=== PATIENT | female | born 1960 | race Caucasian/White ===

== ENCOUNTER 2017-07-22 09:26 | Emergency (ER) | payer MEDICAID, OTHER | END 2017-07-22 09:30 | disposition left against medical advice (07) | LOC: ER 09:26 | DX: R10.9 Unspecified abdominal pain (principal); Z53.21 Procedure and treatment not carried out due to patient leaving prior to being seen by health care provider ==

== ENCOUNTER 2017-09-11 12:33 | Inpatient (IN) | payer MEDICAID ==
[~2017-09-11] VITALS: Ht 160 cm; Wt 85.2 kg
[2017-09-11 13:57] LABS: Basophils # (auto) 0 uL; Lymphocytes # (auto) 1.7 uL; Monocytes # (auto) 0.5 uL; Neutrophils % (auto) 50.6 % (37.0-80.0)
[2017-09-11 13:58] LABS: Basophils % (auto) 0.5 % (0.0-2.0); Eosinophils # (auto) 0.1 uL; Eosinophils % (auto) 1.2 % (0.0-7.0); Hematocrit 35.2 % (36.0-46.0); Hemoglobin 11.1 g/dL (12.2-16.2); Lymphocytes % (auto) 37.4 % (10.0-50.0); Mean Corpuscular Hemoglobin 24.4 pg (28.0-32.0); Mean Corpuscular Hgb Conc. 31.5 g/dL (32.0-36.0); Mean Corpuscular Volume 77.7 fL (80.0-100.0); Monocytes % (auto) 10.3 % (0.0-12.0); Neutrophils # (auto) 2.3 uL; Platelet Count (auto) 287 10^3/uL (140-450); Red Blood Cells 4.54 10^6/uL (4.0-5.20); Red Cell Distribution Width 18.8 % (11.8-14.3); White Blood Cell 4.5 10^3/uL (4.4-10.8)
[2017-09-11 14:31] LABS: Albumin 3.5 g/dL (3.4-5.0); BUN/Creatinine Ratio 18.4; Bilirubin, Total 0.5 mg/dL (0.2-1.0); Calcium 8.7 mg/dL (8.5-10.1); Total Protein 7.7 g/dL (6.4-8.2)
[2017-09-11 14:49] LABS: Urine Bacteria FEW /hpf (None Seen); Urine Blood Negative /uL (Negative); Urine Mucus FEW (None Seen); Urine WBC 1 /hpf (0 - 5)
[2017-09-11] MEDS ORDERED: metroNIDAZOLE 500MG/100ML 100 ML IV ONE (21:45)
[2017-09-11] MEDS ORDERED: TEMAZEPAM 15 MG CAP PO PRN (21:45)
[2017-09-11] MEDS: SODIUM CHLORIDE 0.9% 1,000 ML IV SCH (21:45)
[2017-09-11] MEDS ORDERED: MORPHINE SULFATE 10 MG/ML INJ 1ML SDV IV ONE (21:45)
[2017-09-11] MEDS ORDERED: SODIUM CHLORIDE 0.9% 500 ML IV ONE (21:45)
[2017-09-11] MEDS ORDERED: cefTRIAXone 1GM/50ML D5W 50 ML IV ONE (21:45)
[2017-09-11] MEDS ORDERED: PANTOPRAZOLE 40 MG/10 ML VIAL IV ONE (21:45)
[2017-09-11] MEDS ORDERED: ONDANSETRON HCL 4 MG/2 ML VIAL IV ONE (21:45)
[2017-09-11] MEDS ORDERED: ONDANSETRON HCL 4 MG/2 ML VIAL IV PRN (21:45)
[2017-09-11] MEDS ORDERED: ACETAMINOPHEN 325 MG TAB PO PRN (21:45)
[2017-09-11] MEDS ORDERED: POTASSIUM CHL 20 Meq TABLET PO ONE (21:45)
[2017-09-11 23:30] VITALS: BP 155/87
[2017-09-12] MEDS: HYDROcodone-ACET 5/325MG TAB PO PRN ×5 (00:02→22:35)
[2017-09-12] MEDS ORDERED: MECL12.554 PO (02:34)
[2017-09-12 05:00] VITALS: BP 107/60
[2017-09-12 06:56] LABS: Basophils # (auto) 0 uL; Basophils % (auto) 0.5 % (0.0-2.0); Eosinophils # (auto) 0.1 uL; Hemoglobin 9.8 g/dL (12.2-16.2); Lymphocytes # (auto) 1.3 uL; Monocytes # (auto) 0.5 uL; Neutrophils # (auto) 2.2 uL; White Blood Cell 4.1 10^3/uL (4.4-10.8)
[2017-09-12 06:58] LABS: Eosinophils % (auto) 2.2 % (0.0-7.0); Hematocrit 31.2 % (36.0-46.0); Lymphocytes % (auto) 31.5 % (10.0-50.0); Mean Corpuscular Hemoglobin 24.6 pg (28.0-32.0); Mean Corpuscular Hgb Conc. 31.4 g/dL (32.0-36.0); Mean Corpuscular Volume 78.3 fL (80.0-100.0); Monocytes % (auto) 12.6 % (0.0-12.0); Neutrophils % (auto) 53.2 % (37.0-80.0); Platelet Count (auto) 233 10^3/uL (140-450); Red Blood Cells 3.98 10^6/uL (4.0-5.20); Red Cell Distribution Width 18.6 % (11.8-14.3)
[2017-09-12] MEDS: SODIUM CHLORIDE 0.9% 1,000 ML IV SCH (06:58)
[2017-09-12 08:00] VITALS: BP 107/60
[2017-09-12 08:10] VITALS: BP 101/66
[2017-09-12 08:14] LABS: BUN/Creatinine Ratio 23.6; Bilirubin, Total 0.8 mg/dL (0.2-1.0); Calcium 8.4 mg/dL (8.5-10.1); Potassium 3.6 mmol/L (3.5-5.1); Total Protein 6.5 g/dL (6.4-8.2)
[2017-09-12] MEDS: PANTOPRAZOLE 40 MG/10 ML VIAL IV SCH (10:46)
[2017-09-12] MEDS: ENOXAPARIN SOD 40 MG/0.4 ML SYRINGE SC SCH (10:46)
[2017-09-12] MEDS: BOOST PLUS 8 ounce PO SCH ×2 (12:00→18:00)
[2017-09-12 13:09] VITALS: BP 142/90
[2017-09-12] MEDS: MECLIZINE HCL 25 MG TAB PO PRN ×2 (14:00→17:11)
[2017-09-12 16:37] VITALS: BP 133/82
[2017-09-12] MEDS ORDERED: diphenhdrAMINE HCL 25 MG CAP PO ONE (21:45)
[2017-09-12 22:00] VITALS: BP 133/82
[2017-09-13] MEDS: SODIUM CHLORIDE 0.9% 1,000 ML IV SCH (02:14)
[2017-09-13 05:00] VITALS: BP 120/80
[2017-09-13 06:02] LABS: Basophils # (auto) 0 uL; Basophils % (auto) 0.4 % (0.0-2.0); Eosinophils # (auto) 0.1 uL; Hemoglobin 9.7 g/dL (12.2-16.2); Lymphocytes # (auto) 1.5 uL; Mean Corpuscular Volume 78.3 fL (80.0-100.0); Nucleated Red Blood Cells % 0.1 %
[2017-09-13 06:04] LABS: Eosinophils % (auto) 1.6 % (0.0-7.0); Hematocrit 30.7 % (36.0-46.0); Mean Corpuscular Hemoglobin 24.8 pg (28.0-32.0); Mean Corpuscular Hgb Conc. 31.6 g/dL (32.0-36.0); Monocytes # (auto) 0.4 uL; Monocytes % (auto) 10.4 % (0.0-12.0); Neutrophils % (auto) 49.6 % (37.0-80.0); Platelet Count (auto) 213 10^3/uL (140-450); Red Blood Cells 3.93 10^6/uL (4.0-5.20); Red Cell Distribution Width 18.2 % (11.8-14.3)
[2017-09-13 06:52] LABS: Albumin 2.8 g/dL (3.4-5.0); BUN/Creatinine Ratio 9.8; Bilirubin, Total 0.7 mg/dL (0.2-1.0); Calcium 8.7 mg/dL (8.5-10.1); Potassium 3.3 mmol/L (3.5-5.1); Total Protein 6.3 g/dL (6.4-8.2)
[2017-09-13] MEDS: BOOST PLUS 8 ounce PO SCH ×2 (08:00→12:00)
[2017-09-13 08:05] VITALS: BP 151/102
[2017-09-13] MEDS: HYDROcodone-ACET 5/325MG TAB PO PRN (08:49)
[2017-09-13] MEDS: PANTOPRAZOLE 40 MG/10 ML VIAL IV SCH (10:38)
[2017-09-13] MEDS: ENOXAPARIN SOD 40 MG/0.4 ML SYRINGE SC SCH (10:38)
[2017-09-13] MEDS ORDERED: NITROFURANTOIN (MONO) 100 mg CAP PO ONE (12:15)
[2017-09-13] MEDS ORDERED: DIC10C PO (12:21)
[2017-09-13] MEDS ORDERED: NITR-52 PO (12:21)
[2017-09-13 12:53] VITALS: BP 130/79
[2017-09-13 13:34] VITALS: BP 130/79
[2017-09-13 16:13] VITALS: BP 154/90
[2017-09-13] MEDS ORDERED: NITROFURANTOIN (MONO) 100 mg CAP PO SCH (22:00)
== END 2017-09-13 17:20 | disposition home or self-care (01) | DRG 252 ==
LOC: ER 12:43 → OVERFLOW 12:44 → WEST WING 23:22
PROVIDERS: ADMIT Nurse Practitioner; ATTEND Internal Medicine
DX: K66.0 Peritoneal adhesions (postprocedural) (postinfection) (principal); E44.0 Moderate protein-calorie malnutrition; E66.01 Morbid (severe) obesity due to excess calories; R71.0 Precipitous drop in hematocrit; E86.0 Dehydration; K56.7 Ileus, unspecified; N39.0 Urinary tract infection, site not specified; E87.6 Hypokalemia; G89.29 Other chronic pain; K52.9 Noninfective gastroenteritis and colitis, unspecified; G47.00 Insomnia, unspecified; K62.89 Other specified diseases of anus and rectum; Z82.49 Family history of ischemic heart disease and other diseases of the circulatory system; Z98.84 Bariatric surgery status; Z90.49 Acquired absence of other specified parts of digestive tract; Z68.33 Body mass index [BMI] 33.0-33.9, adult
CPT/HCPCS: 36415; 71010; 74176; 80053; 81001; 81025; 82150; 83540; 83690; 85025; 93005; 94761; 96361; 96365; 96375; C9113; J0696; J2405; J3490

== ENCOUNTER 2022-06-27 18:15 | Inpatient (IN) | payer MEDICARE, MEDICAID ==
[~2022-06-27] VITALS: Ht 160 cm; Wt 67.7 kg
[~2022-06-27 18:15] MED LIST: AMIT25TA12 PO; BISA-60 PO; BISA-65; CYCL-839 PO; DICY10CA PO; FERR27TA2 PO; LISI-707 PO; NITR-52 PO; ONDA-188; PREG-109
[2022-06-27 19:26] LABS: Basophils # (auto) 0 10 ^3/uL (0-0.2); Basophils % (auto) 0.2 % (0.0-2.0); Eosinophils # (auto) 0 10 ^3/uL (0-0.8); Eosinophils % (auto) 0.2 % (0.0-7.0); Hematocrit 38.1 % (36.0-46.0); Hemoglobin 12.7 g/dL (12.2-16.2); Lymphocytes # (auto) 0.9 10 ^3/uL (0.4-5.4); Lymphocytes % (auto) 10.2 % (10.0-50.0); Mean Corpuscular Hemoglobin 33.7 pg (28.0-32.0); Mean Corpuscular Hgb Conc. 33.5 g/dL (32.0-36.0); Mean Corpuscular Volume 100.7 fL (80.0-100.0); Monocytes # (auto) 0.7 10 ^3/uL (0-1.3); Monocytes % (auto) 7.8 % (0.0-12.0); Neutrophils # (auto) 7.6 10 ^3/uL (1.6-8.6); Neutrophils % (auto) 81.6 % (37.0-80.0); Red Blood Cells 3.78 10^6/uL (4.0-5.20); Red Cell Distribution Width 17.2 % (11.8-14.3); White Blood Cell 9.3 10^3/uL (4.4-10.8)
[2022-06-27 19:41] LABS: Albumin 2.1 g/dL (3.4-5.0); BUN/Creatinine Ratio 8.6; Calcium 7.9 mg/dL (8.5-10.1); Magnesium 1.6 mg/dL (1.6-2.6)
[2022-06-27 19:43] LABS: Bilirubin, Total 7.4 mg/dL (0.2-1.0); Total Protein 6.6 g/dL (6.4-8.2)
[2022-06-27 19:52] LABS: Potassium 2.2 mmol/L (3.5-5.1)
[2022-06-27] MEDS ORDERED: POTASSIUM CHL 20 Meq TABLET PO ONE (20:00)
[2022-06-27] MEDS ORDERED: SOD CHL 0.9%/ KCL 40MEQ 1,000 ML IV ONE (21:15)
[2022-06-27] MEDS ORDERED: DOCUSATE SOD 100 MG CAP PO PRN (22:30)
[2022-06-27] MEDS ORDERED: IBUPROFEN 400 MG TAB PO PRN (22:30)
[2022-06-27] MEDS ORDERED: NITROGLYCERIN 0.4 MG SL TAB SL PRN (22:30)
[2022-06-27] MEDS ORDERED: MORPHINE SULFATE INJ 2 MG/ml SYRG IV PRN (22:30)
[2022-06-27] MEDS ORDERED: ALBUMIN 25% 100 ML IV ONE (22:30)
[2022-06-28] MEDS: MAGNESIUM SULFATE 1GM/100ML 100 ML IV SCH ×4 (01:09→02:50)
[2022-06-28 01:23] VITALS: BP 99/48
[2022-06-28] MEDS ORDERED: ALBUMIN 25% 100 ML IV ONE (02:15)
[2022-06-28] MEDS: MORPHINE SULFATE INJ 2 MG/ml SYRG IV PRN ×3 (03:00→20:30)
[2022-06-28 04:45] LABS: Basophils # (auto) 0 10 ^3/uL (0-0.2); Eosinophils # (auto) 0.2 10 ^3/uL (0-0.8); Lymphocytes # (auto) 1.1 10 ^3/uL (0.4-5.4); Lymphocytes % (auto) 13.1 % (10.0-50.0); Monocytes # (auto) 0.7 10 ^3/uL (0-1.3)
[2022-06-28 04:47] LABS: Basophils % (auto) 0.2 % (0.0-2.0); Eosinophils % (auto) 1.9 % (0.0-7.0); Hematocrit 33.7 % (36.0-46.0); Hemoglobin 11.3 g/dL (12.2-16.2); Mean Corpuscular Hemoglobin 34.1 pg (28.0-32.0); Mean Corpuscular Hgb Conc. 33.7 g/dL (32.0-36.0); Mean Corpuscular Volume 101.2 fL (80.0-100.0); Monocytes % (auto) 8.1 % (0.0-12.0); Neutrophils # (auto) 6.7 10 ^3/uL (1.6-8.6); Neutrophils % (auto) 76.7 % (37.0-80.0); Nucleated Red Blood Cells % 0.1 %; Red Blood Cells 3.33 10^6/uL (4.0-5.20); Red Cell Distribution Width 17.9 % (11.8-14.3); White Blood Cell 8.7 10^3/uL (4.4-10.8)
[2022-06-28 05:00] VITALS: BP 98/49
[2022-06-28 05:05] LABS: Albumin 2.3 g/dL (3.4-5.0); Calcium 7.7 mg/dL (8.5-10.1)
[2022-06-28 05:11] LABS: BUN/Creatinine Ratio 8.6; Bilirubin, Total 6.8 mg/dL (0.2-1.0); Total Protein 6.2 g/dL (6.4-8.2)
[2022-06-28 05:13] LABS: Potassium 2.6 mmol/L (3.5-5.1)
[2022-06-28] MEDS: SODIUM CHLOR 0.9% PF (SALINE LOCK) 10ML VIAL/SYR IV SCH ×3 (06:02→20:31)
[2022-06-28] MEDS ORDERED: POTASSIUM CHL 20 Meq TABLET PO ONE (06:15)
[2022-06-28] MEDS ORDERED: MORP15TA PO (07:03)
[2022-06-28] MEDS: ALBUMIN 25% 100 ML IV SCH ×3 (07:41→22:08)
[2022-06-28] MEDS: POTASSIUM CHL 20MEQ/100ML 100 ML IV SCH ×2 (08:45→14:10)
[2022-06-28 09:00] VITALS: BP 102/57
[2022-06-28] MEDS: FAMOTIDINE (10MG/ML) 2ML VL IV SCH (10:25)
[2022-06-28] MEDS: ASPirin 81 mg TAB PO SCH (10:26)
[2022-06-28 12:34] LABS: Bilirubin, Direct 2.9 mg/dL (0-0.2); Bilirubin, Total 6.7 mg/dL (0.2-1.0)
[2022-06-28 13:47] LABS: BUN/Creatinine Ratio 9.6; Calcium 7.9 mg/dL (8.5-10.1)
[2022-06-28 13:54] LABS: Potassium 2.9 mmol/L (3.5-5.1)
[2022-06-28] MEDS ORDERED: POTASSIUM EFFERVESENT TAB 25 MEQ PO ONE (15:30)
[2022-06-28] MEDS: ONDANSETRON HCL 4 MG/2 ML VIAL IV PRN ×2 (16:45→20:30)
[2022-06-28 17:00] VITALS: BP 102/56
[2022-06-28 20:34] LABS: Calcium 8.3 mg/dL (8.5-10.1); Potassium 3.2 mmol/L (3.5-5.1)
[2022-06-28 20:38] LABS: BUN/Creatinine Ratio 8.1
[2022-06-28 22:00] VITALS: BP 110/63
[2022-06-28] MEDS ORDERED: ATORVASTATIN 20 MG TAB PO SCH (22:00)
[2022-06-29 05:00] VITALS: BP 108/62
[2022-06-29] MEDS: SODIUM CHLOR 0.9% PF (SALINE LOCK) 10ML VIAL/SYR IV SCH ×2 (05:16→14:16)
[2022-06-29] MEDS: ONDANSETRON HCL 4 MG/2 ML VIAL IV PRN ×3 (05:47→22:23)
[2022-06-29] MEDS: MORPHINE SULFATE INJ 2 MG/ml SYRG IV PRN ×4 (05:47→22:24)
[2022-06-29] MEDS ORDERED: ADENOSINE 59 MG in GIVE UN-DILUTED 0 ML IV STA (08:39)
[2022-06-29 08:43] VITALS: BP 117/58
[2022-06-29 09:00] VITALS: BP 106/57
[2022-06-29] MEDS: FAMOTIDINE (10MG/ML) 2ML VL IV SCH (11:05)
[2022-06-29] MEDS: ASPirin 81 mg TAB PO SCH (11:06)
[2022-06-29 13:00] VITALS: BP 105/66
[2022-06-29] MEDS ORDERED: POTASSIUM CHL 20 Meq TABLET PO ONE (15:45)
[2022-06-29] MEDS ORDERED: MAGNESIUM OXIDE 400 MG TAB PO ONE (15:45)
[2022-06-29 16:31] LABS: Urine Bacteria FEW /hpf (None Seen); Urine Blood Negative /uL (Negative); Urine Hyaline Cast FEW /lpf (0 - 2); Urine Mucus FEW (None Seen); Urine Specific Gravity 1.025 (1.001-1.035); Urine WBC 1 /hpf (0 - 5)
[2022-06-29 17:00] VITALS: BP 110/55
[2022-06-29 19:13] LABS: Sodium Urine 52 mmol/L (40-220)
[2022-06-29 22:00] VITALS: BP 104/51
[2022-06-29] MEDS ORDERED: FAMOTIDINE (10MG/ML) 2ML VL IV SCH (23:15)
[2022-06-30] MEDS: SODIUM CHLOR 0.9% PF (SALINE LOCK) 10ML VIAL/SYR IV SCH ×4 (00:15→21:45)
[2022-06-30] MEDS: FAMOTIDINE (10MG/ML) 2ML VL IV SCH ×3 (00:16→18:04)
[2022-06-30] MEDS: MORPHINE SULFATE INJ 2 MG/ml SYRG IV PRN ×5 (00:17→22:10)
[2022-06-30 05:00] VITALS: BP 100/76
[2022-06-30] MEDS: ONDANSETRON HCL 4 MG/2 ML VIAL IV PRN ×3 (06:31→20:00)
[2022-06-30 06:38] LABS: INR 1.53 (0.9-1.15); Partial Thromboplastin Time 36.9 sec (24.6-33.4)
[2022-06-30 06:41] LABS: Albumin 3.2 g/dL (3.4-5.0); BUN/Creatinine Ratio 14.5; Calcium 8.4 mg/dL (8.5-10.1); Potassium 3.6 mmol/L (3.5-5.1)
[2022-06-30 06:47] LABS: Basophils # (auto) 0 10 ^3/uL (0-0.2); Eosinophils # (auto) 0.3 10 ^3/uL (0-0.8); Hematocrit 31.6 % (36.0-46.0); Lymphocytes # (auto) 1.2 10 ^3/uL (0.4-5.4); Monocytes # (auto) 0.4 10 ^3/uL (0-1.3); Nucleated Red Blood Cells % 0.1 %; Red Blood Cells 3.11 10^6/uL (4.0-5.20); Red Cell Distribution Width 17.4 % (11.8-14.3)
[2022-06-30 06:49] LABS: Basophils % (auto) 0.3 % (0.0-2.0); Eosinophils % (auto) 4.7 % (0.0-7.0); Hemoglobin 11.1 g/dL (12.2-16.2); Lymphocytes % (auto) 18.8 % (10.0-50.0); Mean Corpuscular Hemoglobin 35.6 pg (28.0-32.0); Mean Corpuscular Hgb Conc. 35.1 g/dL (32.0-36.0); Mean Corpuscular Volume 101.3 fL (80.0-100.0); Monocytes % (auto) 6.6 % (0.0-12.0); Neutrophils # (auto) 4.5 10 ^3/uL (1.6-8.6); Neutrophils % (auto) 69.6 % (37.0-80.0); White Blood Cell 6.5 10^3/uL (4.4-10.8)
[2022-06-30 06:50] LABS: Bilirubin, Total 7.6 mg/dL (0.2-1.0); Total Protein 6.7 g/dL (6.4-8.2)
[2022-06-30] MEDS ORDERED: LIDOCAINE VISCOUS 2% 15ML UD ONE (08:09)
[2022-06-30] MEDS ORDERED: SODIUM CHLORIDE LOCK 10 ML ONE (08:09)
[2022-06-30 09:00] VITALS: BP 111/64
[2022-06-30] MEDS: ASPirin 81 mg TAB PO SCH (11:12)
[2022-06-30 13:00] VITALS: BP 103/57
[2022-06-30 17:00] VITALS: BP 108/57
[2022-06-30 22:00] VITALS: BP 101/68
[2022-07-01 05:00] VITALS: BP 104/63
[2022-07-01] MEDS: ONDANSETRON HCL 4 MG/2 ML VIAL IV PRN (06:10)
[2022-07-01] MEDS: FAMOTIDINE (10MG/ML) 2ML VL IV SCH ×2 (06:11→18:02)
[2022-07-01] MEDS: MORPHINE SULFATE INJ 2 MG/ml SYRG IV PRN ×3 (06:12→22:50)
[2022-07-01] MEDS: SODIUM CHLOR 0.9% PF (SALINE LOCK) 10ML VIAL/SYR IV SCH ×3 (06:12→21:39)
[2022-07-01 07:10] LABS: Basophils # (auto) 0 10 ^3/uL (0-0.2); Eosinophils # (auto) 0.3 10 ^3/uL (0-0.8); Eosinophils % (auto) 4.8 % (0.0-7.0); Hematocrit 30.9 % (36.0-46.0); Lymphocytes # (auto) 1.2 10 ^3/uL (0.4-5.4); Monocytes # (auto) 0.5 10 ^3/uL (0-1.3)
[2022-07-01 07:12] LABS: Basophils % (auto) 0.2 % (0.0-2.0); Hemoglobin 10.3 g/dL (12.2-16.2); Lymphocytes % (auto) 18.8 % (10.0-50.0); Mean Corpuscular Hemoglobin 34.3 pg (28.0-32.0); Mean Corpuscular Hgb Conc. 33.5 g/dL (32.0-36.0); Mean Corpuscular Volume 102.4 fL (80.0-100.0); Monocytes % (auto) 7.3 % (0.0-12.0); Neutrophils # (auto) 4.4 10 ^3/uL (1.6-8.6); Neutrophils % (auto) 68.9 % (37.0-80.0); Red Blood Cells 3.02 10^6/uL (4.0-5.20); Red Cell Distribution Width 17.7 % (11.8-14.3); White Blood Cell 6.4 10^3/uL (4.4-10.8)
[2022-07-01 07:22] LABS: INR 1.57 (0.9-1.15)
[2022-07-01 08:14] LABS: Albumin 3.1 g/dL (3.4-5.0); Calcium 8.4 mg/dL (8.5-10.1); Potassium 3.5 mmol/L (3.5-5.1)
[2022-07-01 08:20] LABS: Bilirubin, Total 6.8 mg/dL (0.2-1.0); Total Protein 6.4 g/dL (6.4-8.2)
[2022-07-01 09:00] VITALS: BP 105/59
[2022-07-01 13:00] VITALS: BP 114/66
[2022-07-01] MEDS: diphenhdrAMINE HCL 50 MG/1 ML VL ONE ×2 (16:13→16:15)
[2022-07-01] MEDS: fentaNYL CITRATE 100 MCG/2 ML VL ONE ×2 (16:13→16:16)
[2022-07-01] MEDS: MIDAZOLAM HCL 5 MG/ML-1ML VIAL ONE ×3 (16:13→16:23)
[2022-07-01 16:48] VITALS: BP 118/67
[2022-07-01] MEDS: SUCRALFATE 1 GM/10 ML ORAL SUSP PO SCH ×2 (18:02→21:39)
[2022-07-01] MEDS: NYSTATIN (MOUTH-THROAT) 500,000 UNITS/5 ML SUSP MT SCH ×2 (18:10→21:39)
[2022-07-01 22:00] VITALS: BP 118/71
[2022-07-02 05:00] VITALS: BP 100/50
[2022-07-02] MEDS: FAMOTIDINE (10MG/ML) 2ML VL IV SCH ×2 (06:15→17:58)
[2022-07-02] MEDS: NYSTATIN (MOUTH-THROAT) 500,000 UNITS/5 ML SUSP MT SCH ×4 (06:16→23:10)
[2022-07-02] MEDS: SUCRALFATE 1 GM/10 ML ORAL SUSP PO SCH ×4 (06:16→23:10)
[2022-07-02] MEDS: SODIUM CHLOR 0.9% PF (SALINE LOCK) 10ML VIAL/SYR IV SCH ×3 (06:17→23:10)
[2022-07-02 06:51] LABS: Basophils # (auto) 0 10 ^3/uL (0-0.2); Eosinophils # (auto) 0.3 10 ^3/uL (0-0.8); Lymphocytes # (auto) 1.2 10 ^3/uL (0.4-5.4); Monocytes # (auto) 0.5 10 ^3/uL (0-1.3); Monocytes % (auto) 7.2 % (0.0-12.0); Nucleated Red Blood Cells % 0.1 %
[2022-07-02 06:53] LABS: Basophils % (auto) 0.3 % (0.0-2.0); Eosinophils % (auto) 3.9 % (0.0-7.0); Hematocrit 30.4 % (36.0-46.0); Hemoglobin 10.3 g/dL (12.2-16.2); Lymphocytes % (auto) 17.6 % (10.0-50.0); Mean Corpuscular Hemoglobin 34.5 pg (28.0-32.0); Mean Corpuscular Hgb Conc. 33.8 g/dL (32.0-36.0); Neutrophils # (auto) 4.9 10 ^3/uL (1.6-8.6); Red Blood Cells 2.98 10^6/uL (4.0-5.20); Red Cell Distribution Width 17.1 % (11.8-14.3); White Blood Cell 6.8 10^3/uL (4.4-10.8)
[2022-07-02 07:00] LABS: Mean Corpuscular Volume 101.9 fL (80.0-100.0)
[2022-07-02 07:07] LABS: Albumin 2.9 g/dL (3.4-5.0); BUN/Creatinine Ratio 14.6; Calcium 8.2 mg/dL (8.5-10.1); Potassium 3.4 mmol/L (3.5-5.1)
[2022-07-02 07:10] LABS: Bilirubin, Total 6.2 mg/dL (0.2-1.0); Total Protein 6.2 g/dL (6.4-8.2)
[2022-07-02] MEDS ORDERED: IOHEXOL 300 MG/ML 100ML BOTTLE IJ ONE (08:57)
[2022-07-02] MEDS ORDERED: EZ PAQUE SUSP 12OZ BTL ONE (08:58)
[2022-07-02] MEDS ORDERED: BARIUM SULFATE 98% 340 GM PWDR ONE (08:58)
[2022-07-02 09:00] VITALS: BP 100/46
[2022-07-02] MEDS ORDERED: EZ-GAS II GRANULES (RADIOLOGY USE) PO ONE (09:15)
[2022-07-02] MEDS ORDERED: GASTROGRAFIN 120 ML SOL ONE (10:27)
[2022-07-02] MEDS: MORPHINE SULFATE INJ 2 MG/ml SYRG IV PRN ×2 (11:21→15:52)
[2022-07-02 12:52] VITALS: BP 124/69
[2022-07-02 16:59] VITALS: BP 109/56
[2022-07-02 22:00] VITALS: BP 100/56
[2022-07-03] MEDS: MORPHINE SULFATE INJ 2 MG/ml SYRG IV PRN (00:53)
[2022-07-03] MEDS: ONDANSETRON HCL 4 MG/2 ML VIAL IV PRN ×2 (00:53→11:03)
[2022-07-03 05:00] VITALS: BP 104/56
[2022-07-03] MEDS: SODIUM CHLOR 0.9% PF (SALINE LOCK) 10ML VIAL/SYR IV SCH ×2 (06:08→14:00)
[2022-07-03] MEDS: SUCRALFATE 1 GM/10 ML ORAL SUSP PO SCH ×2 (06:09→11:55)
[2022-07-03] MEDS: FAMOTIDINE (10MG/ML) 2ML VL IV SCH (06:09)
[2022-07-03] MEDS: NYSTATIN (MOUTH-THROAT) 500,000 UNITS/5 ML SUSP MT SCH ×2 (06:09→11:56)
[2022-07-03 06:12] LABS: Basophils # (auto) 0 10 ^3/uL (0-0.2); Eosinophils # (auto) 0.3 10 ^3/uL (0-0.8); Lymphocytes # (auto) 1.2 10 ^3/uL (0.4-5.4); Monocytes # (auto) 0.6 10 ^3/uL (0-1.3); Neutrophils # (auto) 4.2 10 ^3/uL (1.6-8.6); Red Cell Distribution Width 17.1 % (11.8-14.3); White Blood Cell 6.3 10^3/uL (4.4-10.8)
[2022-07-03 06:15] LABS: Basophils % (auto) 0.3 % (0.0-2.0); Eosinophils % (auto) 4.7 % (0.0-7.0); Hematocrit 29.7 % (36.0-46.0); Hemoglobin 10.4 g/dL (12.2-16.2); Lymphocytes % (auto) 19.2 % (10.0-50.0); Mean Corpuscular Hemoglobin 35.5 pg (28.0-32.0); Mean Corpuscular Hgb Conc. 35.1 g/dL (32.0-36.0); Monocytes % (auto) 9.2 % (0.0-12.0); Neutrophils % (auto) 66.6 % (37.0-80.0); Red Blood Cells 2.94 10^6/uL (4.0-5.20)
[2022-07-03 06:24] LABS: INR 1.59 (0.9-1.15)
[2022-07-03 06:29] LABS: Albumin 2.8 g/dL (3.4-5.0); Calcium 8.5 mg/dL (8.5-10.1)
[2022-07-03 06:34] LABS: Bilirubin, Total 5.5 mg/dL (0.2-1.0); Total Protein 6.3 g/dL (6.4-8.2)
[2022-07-03] MEDS: MAGNESIUM OXIDE 400 MG TAB PO ONE ×2 (10:29→10:45)
[2022-07-03] MEDS: POTASSIUM CHL 20 Meq TABLET PO ONE ×2 (10:29→10:45)
[2022-07-03 11:43] LABS: Hepatitis B Surface Antibody Negative (Negative)
[2022-07-03 12:13] LABS: Hepatitis A Total Antibody Positive (Negative)
[2022-07-03] MEDS ORDERED: POTASSIUM CHL 20MEQ/100ML 100 ML IV ONE ×3 (12:15→16:30)
[2022-07-03 13:00] VITALS: BP 107/66
[2022-07-03 15:34] VITALS: BP 129/83
[2022-07-03 16:16] VITALS: BP 129/83
[2022-07-03 18:00] LABS: Hepatitis A Ab IgM Negative; Hepatitis B Core IgM Negative
[2022-07-03 18:04] LABS: Hepatitis C Antibody Positive (Negative)
== END 2022-07-03 16:31 | disposition short-term general hospital (02) | DRG 442 ==
LOC: ER 18:15 → TELE 22:21 → TELE-WESTW 23:38
PROVIDERS: ADMIT Nurse Practitioner Family; ATTEND Internal Medicine
PROC: 0DB78ZX Excision of Stomach, Pylorus, Via Natural or Artificial Opening Endoscopic, Diagnostic (ICD-10-PCS; 2022-07-01)
PROC: 0DB38ZX Excision of Lower Esophagus, Via Natural or Artificial Opening Endoscopic, Diagnostic (ICD-10-PCS; principal; 2022-07-01 16:09)
DX: E80.6 Other disorders of bilirubin metabolism (principal); B37.81 Candidal esophagitis; E44.0 Moderate protein-calorie malnutrition; K76.6 Portal hypertension; K31.1 Adult hypertrophic pyloric stenosis; K29.70 Gastritis, unspecified, without bleeding; E87.6 Hypokalemia; D64.9 Anemia, unspecified; K27.9 Peptic ulcer, site unspecified, unspecified as acute or chronic, without hemorrhage or perforation; E83.42 Hypomagnesemia; I95.9 Hypotension, unspecified; F02.80 Dementia in other diseases classified elsewhere, unspecified severity, without behavioral disturbance, psychotic disturbance, mood disturbance, and anxiety; I10 Essential (primary) hypertension; K44.9 Diaphragmatic hernia without obstruction or gangrene; G30.9 Alzheimer's disease, unspecified; R16.2 Hepatomegaly with splenomegaly, not elsewhere classified; R73.9 Hyperglycemia, unspecified; Z20.822 Contact with and (suspected) exposure to COVID-19; Z83.3 Family history of diabetes mellitus; Z87.11 Personal history of peptic ulcer disease; Z90.49 Acquired absence of other specified parts of digestive tract; Z98.84 Bariatric surgery status; Z68.24 Body mass index [BMI] 24.0-24.9, adult
CPT/HCPCS: 36415; 43239; 71045; 74177; 74181; 74246; 76705; 78452; 80048; 80053; 80061; 80074; 81001; 82105; 82150; 82247; 82248; 82378; 82728; 83036; 83690; 83735; 83880; 84133; 84300; 84484; 84702; 85025; 85610; 85730; 86301; 86704; 86706; 86708; 86803; 86850; 86900; 86901; 87081; 87340; 93005; 93017; 96365; 97163; 99291; G0378; J0153; J2250; J2405; J3480; J3490; P9047

== ENCOUNTER 2022-07-19 14:38 | Inpatient (IN) | payer MEDICARE, MEDICAID ==
[~2022-07-19] VITALS: Ht 160 cm; Wt 68.7 kg
[~2022-07-19 14:38] MED LIST changes: +MORP15TA PO
[2022-07-19 15:54] LABS: Basophils # (auto) 0 10 ^3/uL (0-0.2); Basophils % (auto) 0.1 % (0.0-2.0); Eosinophils # (auto) 0 10 ^3/uL (0-0.8); Eosinophils % (auto) 0.2 % (0.0-7.0); Hematocrit 33.2 % (36.0-46.0); Hemoglobin 11.2 g/dL (12.2-16.2); Lymphocytes # (auto) 0.5 10 ^3/uL (0.4-5.4); Lymphocytes % (auto) 4.8 % (10.0-50.0); Mean Corpuscular Hemoglobin 34.2 pg (28.0-32.0); Mean Corpuscular Hgb Conc. 33.6 g/dL (32.0-36.0); Mean Corpuscular Volume 101.8 fL (80.0-100.0); Monocytes # (auto) 0.9 10 ^3/uL (0-1.3); Monocytes % (auto) 7.9 % (0.0-12.0); Neutrophils # (auto) 9.8 10 ^3/uL (1.6-8.6); Red Blood Cells 3.26 10^6/uL (4.0-5.20); Red Cell Distribution Width 16.3 % (11.8-14.3); White Blood Cell 11.3 10^3/uL (4.4-10.8)
[2022-07-19 16:29] LABS: Anion Gap 12 (5-15); Blood Urea Nitrogen 9 mg/dL (7-18); Carbon Dioxide 22 mmol/L (21-32); Chloride 100 mmol/L (98-107); Glucose 171 mg/dL (74-106); Potassium 3.8 mmol/L (3.5-5.1); Sodium 134 mmol/L (136-145)
[2022-07-19 16:30] LABS: Alanine Aminotransferase 28 U/L (13-56); Albumin 2.7 g/dL (3.4-5.0); Alkaline Phosphatase 101 U/L (45-117); Aspartate Aminotransferase 59 U/L (15-37); BUN/Creatinine Ratio 12.7; Bilirubin, Total 4.1 mg/dL (0.2-1.0); Calcium 8.3 mg/dL (8.5-10.1); GFR African American 108 mL/min; GFR Non-African American 90 mL/min; Total Protein 6.7 g/dL (6.4-8.2)
[2022-07-19] MEDS ORDERED: ACETAMINOPHEN 500 MG TAB PO ONE (21:00)
[2022-07-19] MEDS ORDERED: ACETAMINOPHEN 325 MG TAB PO PRN (21:00)
[2022-07-19] MEDS ORDERED: DOCUSATE SOD 100 MG CAP PO PRN (21:00)
[2022-07-19] MEDS: SODIUM CHLORIDE 0.9% 1,000 ML IV SCH (21:26)
[2022-07-19] MEDS: cefTRIAXone 1GM/50ML D5W 50 ML IV SCH (22:40)
[2022-07-19 23:54] VITALS: BP 92/45
[2022-07-20 05:00] VITALS: BP 100/51
[2022-07-20 07:02] LABS: Calcium 8.3 mg/dL (8.5-10.1); Potassium 3.6 mmol/L (3.5-5.1)
[2022-07-20 07:06] LABS: BUN/Creatinine Ratio 17.9
[2022-07-20 07:13] LABS: Basophils # (auto) 0 10 ^3/uL (0-0.2); Basophils % (auto) 0.2 % (0.0-2.0); Eosinophils # (auto) 0 10 ^3/uL (0-0.8); Hemoglobin 10.7 g/dL (12.2-16.2); Lymphocytes # (auto) 0.8 10 ^3/uL (0.4-5.4); Mean Corpuscular Hemoglobin 35.4 pg (28.0-32.0); Monocytes # (auto) 1.1 10 ^3/uL (0-1.3); Monocytes % (auto) 9.2 % (0.0-12.0)
[2022-07-20 07:14] LABS: Eosinophils % (auto) 0.4 % (0.0-7.0); Hematocrit 30.6 % (36.0-46.0); Lymphocytes % (auto) 6.4 % (10.0-50.0); Mean Corpuscular Volume 101.1 fL (80.0-100.0); Neutrophils # (auto) 10.2 10 ^3/uL (1.6-8.6); Neutrophils % (auto) 83.8 % (37.0-80.0); Red Blood Cells 3.03 10^6/uL (4.0-5.20); Red Cell Distribution Width 16.1 % (11.8-14.3); White Blood Cell 12.1 10^3/uL (4.4-10.8)
[2022-07-20 09:00] VITALS: BP 107/59
[2022-07-20 13:00] VITALS: BP 103/55
[2022-07-20] MEDS: SODIUM CHLORIDE 0.9% 1,000 ML IV SCH (14:55)
[2022-07-20 16:43] VITALS: BP 99/59
[2022-07-20] MEDS: Ensure HIGH Protein Chocolate 8oz Bottle PO SCH (18:49)
[2022-07-20 20:28] VITALS: BP 115/62
[2022-07-20] MEDS: ONDANSETRON HCL 4 MG/2 ML VIAL IV PRN (21:06)
[2022-07-20] MEDS: cefTRIAXone 1GM/50ML D5W 50 ML IV SCH (21:56)
[2022-07-21 05:05] VITALS: BP 99/56
[2022-07-21] MEDS: SODIUM CHLORIDE 0.9% 1,000 ML IV SCH ×2 (05:50→23:00)
[2022-07-21 07:05] LABS: Alcohol, Urine < 3.0 mg/dL (0-10); Amphetamine Screen, Urine NEGATIVE (NEGATIVE); Barbiturate Scree,Urine NEGATIVE (NEGATIVE); Benzodiazephine Screen, Urine NEGATIVE (NEGATIVE); Cannabinoid Screen, Urine POSITIVE (NEGATIVE); Cocaine Screen, Urine NEGATIVE (NEGATIVE); Opiate Scree,Urine POSITIVE (NEGATIVE); Phencyclidine Screen, Urine NEGATIVE (NEGATIVE)
[2022-07-21 07:23] LABS: Urine Bacteria NONE SEEN /hpf (None Seen); Urine Blood Negative /uL (Negative); Urine Mucus FEW (None Seen); Urine WBC 1 /hpf (0 - 5)
[2022-07-21 09:00] VITALS: BP 99/52
[2022-07-21] MEDS: Ensure HIGH Protein Chocolate 8oz Bottle PO SCH ×3 (09:50→18:52)
[2022-07-21 13:00] VITALS: BP 96/46
[2022-07-21] MEDS: FOLIC ACID 1 MG, MULTIPLE VITAMIN 10 ML, MAGNESIUM SULF SDV 50% 8 MEQ, THIAMINE INJ 100... INJ SCH ×5 (14:51)
[2022-07-21 17:00] VITALS: BP 108/56
[2022-07-21] MEDS: HYDROcodone-ACET 5/325MG TAB PO PRN (19:47)
[2022-07-21 22:00] VITALS: BP 100/45
[2022-07-21] MEDS: cefTRIAXone 1GM/50ML D5W 50 ML IV SCH (22:07)
[2022-07-21] MEDS: ONDANSETRON HCL 4 MG/2 ML VIAL IV PRN (23:43)
[2022-07-22] MEDS: HYDROcodone-ACET 5/325MG TAB PO PRN ×3 (01:30→21:14)
[2022-07-22 05:56] VITALS: BP 98/50
[2022-07-22 09:00] VITALS: BP 100/53
[2022-07-22] MEDS: ONDANSETRON HCL 4 MG/2 ML VIAL IV PRN (09:27)
[2022-07-22] MEDS: Ensure HIGH Protein Chocolate 8oz Bottle PO SCH ×3 (09:31→19:26)
[2022-07-22] MEDS ORDERED: LORazepam 2MG/ML-1ML VIAL IV PRN (10:15)
[2022-07-22 13:00] VITALS: BP 114/54
[2022-07-22] MEDS: FOLIC ACID 1 MG, MULTIPLE VITAMIN 10 ML, MAGNESIUM SULF SDV 50% 8 MEQ, THIAMINE INJ 100... INJ SCH ×5 (14:31)
[2022-07-22 16:54] VITALS: BP 102/50
[2022-07-22] MEDS: SODIUM CHLORIDE 0.9% 1,000 ML IV SCH (19:27)
[2022-07-22] MEDS: cefTRIAXone 1GM/50ML D5W 50 ML IV SCH (21:05)
[2022-07-22 21:47] VITALS: BP 113/63
[2022-07-23] MEDS: HYDROcodone-ACET 5/325MG TAB PO PRN ×2 (03:01→22:00)
[2022-07-23 04:47] VITALS: BP 101/51
[2022-07-23 05:09] LABS: Basophils # (auto) 0 10 ^3/uL (0-0.2); Eosinophils # (auto) 0.2 10 ^3/uL (0-0.8)
[2022-07-23 05:12] LABS: Basophils % (auto) 0.3 % (0.0-2.0); Hematocrit 27.7 % (36.0-46.0); Hemoglobin 9.8 g/dL (12.2-16.2); Lymphocytes # (auto) 0.9 10 ^3/uL (0.4-5.4); Lymphocytes % (auto) 12.4 % (10.0-50.0); Mean Corpuscular Hemoglobin 35.2 pg (28.0-32.0); Mean Corpuscular Hgb Conc. 35.2 g/dL (32.0-36.0); Mean Corpuscular Volume 99.9 fL (80.0-100.0); Monocytes % (auto) 13.2 % (0.0-12.0); Neutrophils # (auto) 5.3 10 ^3/uL (1.6-8.6); Neutrophils % (auto) 71.1 % (37.0-80.0); Red Blood Cells 2.77 10^6/uL (4.0-5.20); Red Cell Distribution Width 16.5 % (11.8-14.3); White Blood Cell 7.4 10^3/uL (4.4-10.8)
[2022-07-23 05:30] LABS: BUN/Creatinine Ratio 17.1; Calcium 7.5 mg/dL (8.5-10.1)
[2022-07-23 06:09] LABS: Potassium 2.8 mmol/L (3.5-5.1)
[2022-07-23] MEDS ORDERED: POTASSIUM CHL 20 Meq TABLET PO ONE ×2 (06:30→13:00)
[2022-07-23] MEDS: ONDANSETRON HCL 4 MG/2 ML VIAL IV PRN ×3 (06:46→21:59)
[2022-07-23 09:22] VITALS: BP 114/60
[2022-07-23] MEDS: Ensure HIGH Protein Chocolate 8oz Bottle PO SCH ×3 (11:53→18:23)
[2022-07-23] MEDS: SODIUM CHLORIDE 0.9% 1,000 ML IV SCH (11:54)
[2022-07-23 13:00] VITALS: BP 117/59
[2022-07-23] MEDS: FOLIC ACID 1 MG, MULTIPLE VITAMIN 10 ML, MAGNESIUM SULF SDV 50% 8 MEQ, THIAMINE INJ 100... INJ SCH ×5 (14:47)
[2022-07-23 17:00] VITALS: BP 100/60
[2022-07-23 20:44] LABS: Folate (Folic Acid) > 24.00 ng/mL (5.38-24)
[2022-07-23 22:00] VITALS: BP 129/71
[2022-07-24] MEDS: SODIUM CHLORIDE 0.9% 1,000 ML IV SCH (01:00)
[2022-07-24 06:05] VITALS: BP 105/56
[2022-07-24] MEDS: ONDANSETRON HCL 4 MG/2 ML VIAL IV PRN (06:16)
[2022-07-24] MEDS: HYDROcodone-ACET 5/325MG TAB PO PRN ×2 (06:16→10:39)
[2022-07-24 09:00] VITALS: BP 107/50
[2022-07-24] MEDS ORDERED: ASPirin-EC 81 mg tab PO SCH (10:00)
[2022-07-24] MEDS: Ensure HIGH Protein Chocolate 8oz Bottle PO SCH ×2 (10:28→12:00)
[2022-07-24] MEDS: FOLIC ACID 1 MG, MULTIPLE VITAMIN 10 ML, MAGNESIUM SULF SDV 50% 8 MEQ, THIAMINE INJ 100... INJ SCH ×5 (12:00)
== END 2022-07-24 14:00 | DRG 432 ==
LOC: ER 14:38 → WEST WING 21:01
PROVIDERS: ADMIT Hospitalist; ATTEND Family Medicine
DX: K74.60 Unspecified cirrhosis of liver (principal); E43 Unspecified severe protein-calorie malnutrition; G93.41 Metabolic encephalopathy; K76.6 Portal hypertension; D72.829 Elevated white blood cell count, unspecified; E86.0 Dehydration; G30.9 Alzheimer's disease, unspecified; K27.9 Peptic ulcer, site unspecified, unspecified as acute or chronic, without hemorrhage or perforation; F10.10 Alcohol abuse, uncomplicated; G62.9 Polyneuropathy, unspecified; Z68.26 Body mass index [BMI] 26.0-26.9, adult; F02.80 Dementia in other diseases classified elsewhere, unspecified severity, without behavioral disturbance, psychotic disturbance, mood disturbance, and anxiety; F32.A Depression, unspecified; M54.50 Low back pain, unspecified; R16.2 Hepatomegaly with splenomegaly, not elsewhere classified; R79.89 Other specified abnormal findings of blood chemistry; Z20.822 Contact with and (suspected) exposure to COVID-19; I10 Essential (primary) hypertension; G89.29 Other chronic pain; Z81.8 Family history of other mental and behavioral disorders; Z82.49 Family history of ischemic heart disease and other diseases of the circulatory system; Z83.3 Family history of diabetes mellitus; Z86.73 Personal history of transient ischemic attack (TIA), and cerebral infarction without residual deficits; Z87.11 Personal history of peptic ulcer disease; Z87.891 Personal history of nicotine dependence; Z98.84 Bariatric surgery status; Z79.82 Long term (current) use of aspirin; Z90.49 Acquired absence of other specified parts of digestive tract; Z71.41 Alcohol abuse counseling and surveillance of alcoholic
CPT/HCPCS: 36415; 70450; 70551; 71045; 74176; 80048; 80053; 80061; 80307; 80320; 81001; 82140; 82607; 82746; 83735; 84443; 84484; 85025; 87040; 87086; 93005; 93306; 93886; 96361; 96365; 96375; 97116; 97163; 97530; G0378; J0696; J2405

== ENCOUNTER 2022-10-26 10:19 | Inpatient (IN) | payer MEDICARE, MEDICAID ==
[~2022-10-26] VITALS: Ht 160 cm; Wt 67.3 kg
[~2022-10-26 10:19] MED LIST changes: +FURO1TAB31 PO; +LACT10PA2 PO; +POTA10TA51 PO
[2022-10-26 11:14] LABS: Amphetamine Screen, Urine NEGATIVE (NEGATIVE); Barbiturate Scree,Urine NEGATIVE (NEGATIVE); Benzodiazephine Screen, Urine NEGATIVE (NEGATIVE); Cannabinoid Screen, Urine POSITIVE (NEGATIVE); Cocaine Screen, Urine NEGATIVE (NEGATIVE); Opiate Scree,Urine NEGATIVE (NEGATIVE); Phencyclidine Screen, Urine NEGATIVE (NEGATIVE)
[2022-10-26 11:22] LABS: Basophils # (auto) 0 10 ^3/uL (0-0.2); Basophils % (auto) 0.3 % (0.0-2.0); Eosinophils # (auto) 0 10 ^3/uL (0-0.8); Eosinophils % (auto) 1.4 % (0.0-7.0); Hematocrit 33.8 % (36.0-46.0); Hemoglobin 11.5 g/dL (12.2-16.2); Lymphocytes # (auto) 1.5 10 ^3/uL (0.4-5.4); Lymphocytes % (auto) 47.6 % (10.0-50.0); Mean Corpuscular Volume 97.1 fL (80.0-100.0); Monocytes # (auto) 0.3 10 ^3/uL (0-1.3); Monocytes % (auto) 9.6 % (0.0-12.0); Neutrophils # (auto) 1.3 10 ^3/uL (1.6-8.6); Neutrophils % (auto) 41.1 % (37.0-80.0); Nucleated Red Blood Cells % 0.2 %; Red Blood Cells 3.48 10^6/uL (4.0-5.20); Red Cell Distribution Width 16.5 % (11.8-14.3); White Blood Cell 3.1 10^3/uL (4.4-10.8)
[2022-10-26 11:36] LABS: Albumin 2.7 g/dL (3.4-5.0); Anion Gap 6 (5-15); BUN/Creatinine Ratio 11.7; Blood Alcohol < 3.0 mg/dL (0-5); Blood Urea Nitrogen 7 mg/dL (7-18); Calcium 8.9 mg/dL (8.5-10.1); Carbon Dioxide 29 mmol/L (21-32); Chloride 113 mmol/L (98-107); GFR African American 131 mL/min; GFR Non-African American 108 mL/min; Glucose 107 mg/dL (74-106); Potassium 3.2 mmol/L (3.5-5.1); Sodium 148 mmol/L (136-145)
[2022-10-26 11:45] LABS: Alanine Aminotransferase 29 U/L (13-56); Alkaline Phosphatase 120 U/L (45-117); Aspartate Aminotransferase 45 U/L (15-37); Bilirubin, Total 3.3 mg/dL (0.2-1.0); Total Protein 6.1 g/dL (6.4-8.2)
[2022-10-26] MEDS ORDERED: LACTULOSE 20Gm/30ML SOLN PO ONE (12:30)
[2022-10-26 12:48] LABS: Urine Blood Negative /uL (Negative)
[2022-10-26] MEDS ORDERED: POTASSIUM EFFERVESENT TAB 25 MEQ PO ONE (15:00)
[2022-10-26 16:53] LABS: Urine Bacteria FEW /hpf (None Seen); Urine WBC 0-5 /hpf (0 - 5)
[2022-10-26 16:54] LABS: Urine Amorphous Crystal PRESENT /hpf (None Seen)
[2022-10-26] MEDS: LACTULOSE 20Gm/30ML SOLN PO SCH (19:23)
[2022-10-26] MEDS: SODIUM CHLORIDE 0.9% 1,000 ML IV SCH (19:23)
[2022-10-26 22:00] VITALS: BP 128/68
[2022-10-26] MEDS: CYCLOBENZAPRINE HCL 10 MG TAB PO SCH (22:19)
[2022-10-26] MEDS: AMITRIPTYLINE HCL 25 MG TAB PO SCH (22:19)
[2022-10-26] MEDS ORDERED: LORazepam 2MG/ML-1ML VIAL IV PRN (23:30)
[2022-10-27] MEDS: SODIUM CHLORIDE 0.9% 1,000 ML IV SCH (04:20)
[2022-10-27 05:00] VITALS: BP 123/64
[2022-10-27 05:43] LABS: Basophils # (auto) 0 10 ^3/uL (0-0.2); Basophils % (auto) 0.4 % (0.0-2.0); Eosinophils # (auto) 0 10 ^3/uL (0-0.8); Eosinophils % (auto) 1.1 % (0.0-7.0); Hematocrit 29.2 % (36.0-46.0); Hemoglobin 10.1 g/dL (12.2-16.2); Lymphocytes # (auto) 1.5 10 ^3/uL (0.4-5.4); Lymphocytes % (auto) 43.7 % (10.0-50.0); Mean Corpuscular Hemoglobin 33.3 pg (28.0-32.0); Mean Corpuscular Hgb Conc. 34.6 g/dL (32.0-36.0); Mean Corpuscular Volume 96.2 fL (80.0-100.0); Monocytes # (auto) 0.4 10 ^3/uL (0-1.3); Monocytes % (auto) 13.2 % (0.0-12.0); Neutrophils # (auto) 1.4 10 ^3/uL (1.6-8.6); Neutrophils % (auto) 41.6 % (37.0-80.0); Nucleated Red Blood Cells % 0.2 %; Red Blood Cells 3.04 10^6/uL (4.0-5.20); Red Cell Distribution Width 16.5 % (11.8-14.3); White Blood Cell 3.4 10^3/uL (4.4-10.8)
[2022-10-27] MEDS: LACTULOSE 20Gm/30ML SOLN PO SCH ×5 (06:00→17:52)
[2022-10-27] MEDS: CYCLOBENZAPRINE HCL 10 MG TAB PO SCH ×3 (06:04→22:04)
[2022-10-27 06:17] LABS: Albumin 2.5 g/dL (3.4-5.0); BUN/Creatinine Ratio 16.3; Bilirubin, Total 3.9 mg/dL (0.2-1.0); Calcium 8.3 mg/dL (8.5-10.1); Total Protein 5.3 g/dL (6.4-8.2)
[2022-10-27 09:00] VITALS: BP 101/49
[2022-10-27] MEDS ORDERED: PATIENTS OWN MEDICATION (Ferrous Gluconate (Iron) 65 MG) PO SCH (10:00)
[2022-10-27] MEDS ORDERED: ENOXAPARIN SOD 40 MG/0.4 ML SYRINGE SC SCH (10:00)
[2022-10-27] MEDS: FUROSEMIDE 40 MG TAB PO SCH (10:31)
[2022-10-27] MEDS: HCTZ 25 MG TAB PO SCH (10:31)
[2022-10-27] MEDS: LISINOPRIL 20 MG TAB PO SCH (10:31)
[2022-10-27] MEDS: POTASSIUM CHL 20 Meq TABLET PO SCH (10:32)
[2022-10-27] MEDS ORDERED: POTASSIUM CHL 20 Meq TABLET PO ONE (12:30)
[2022-10-27] MEDS: ACETAMINOPHEN 325 MG TAB PO PRN (12:40)
[2022-10-27 13:00] VITALS: BP 107/65
[2022-10-27] MEDS ORDERED: MAGNESIUM OXIDE 400 MG TAB PO ONE (13:30)
[2022-10-27] MEDS ORDERED: D5W 5% 1,000 ML IV ONE (14:45)
[2022-10-27 17:00] VITALS: BP 85/80
[2022-10-27 22:00] VITALS: BP 100/51
[2022-10-27] MEDS: AMITRIPTYLINE HCL 25 MG TAB PO SCH (22:04)
[2022-10-28] MEDS: LACTULOSE 20Gm/30ML SOLN PO SCH ×4 (00:11→18:05)
[2022-10-28 05:00] VITALS: BP 103/72
[2022-10-28] MEDS: CYCLOBENZAPRINE HCL 10 MG TAB PO SCH ×3 (05:39→21:31)
[2022-10-28 07:11] LABS: INR 1.37 (0.9-1.15)
[2022-10-28 07:40] LABS: Alanine Aminotransferase 24 U/L (13-56); Albumin 2.5 g/dL (3.4-5.0); Anion Gap 8 (5-15); Aspartate Aminotransferase 37 U/L (15-37); BUN/Creatinine Ratio 7.1; Blood Urea Nitrogen 5 mg/dL (7-18); Calcium 8.8 mg/dL (8.5-10.1); Carbon Dioxide 27 mmol/L (21-32); Chloride 110 mmol/L (98-107); GFR African American 110 mL/min; GFR Non-African American 91 mL/min; Glucose 109 mg/dL (74-106); Potassium 3.4 mmol/L (3.5-5.1); Sodium 145 mmol/L (136-145)
[2022-10-28 07:42] LABS: Alkaline Phosphatase 98 U/L (45-117); Bilirubin, Total 4.1 mg/dL (0.2-1.0)
[2022-10-28] MEDS ORDERED: POTASSIUM CHL 20 Meq TABLET PO ONE (08:45)
[2022-10-28 09:00] VITALS: BP 100/54
[2022-10-28] MEDS: FUROSEMIDE 40 MG TAB PO SCH (10:30)
[2022-10-28] MEDS: LISINOPRIL 20 MG TAB PO SCH (10:30)
[2022-10-28] MEDS: POTASSIUM CHL 20 Meq TABLET PO SCH (10:56)
[2022-10-28] MEDS: rifAXIMin 550 MG TAB PO SCH ×2 (11:14→21:31)
[2022-10-28] MEDS: HCTZ 25 MG TAB PO SCH (11:29)
[2022-10-28 17:00] VITALS: BP 105/67
[2022-10-28] MEDS: AMITRIPTYLINE HCL 25 MG TAB PO SCH (21:30)
[2022-10-28 21:57] VITALS: BP 100/53
[2022-10-29 05:00] VITALS: BP 105/57
[2022-10-29] MEDS: CYCLOBENZAPRINE HCL 10 MG TAB PO SCH ×3 (05:14→22:00)
[2022-10-29] MEDS: LACTULOSE 20Gm/30ML SOLN PO SCH ×4 (05:14→17:34)
[2022-10-29] MEDS: HCTZ 25 MG TAB PO SCH (08:21)
[2022-10-29] MEDS: FUROSEMIDE 40 MG TAB PO SCH (08:22)
[2022-10-29] MEDS: LISINOPRIL 20 MG TAB PO SCH (08:22)
[2022-10-29] MEDS: rifAXIMin 550 MG TAB PO SCH ×2 (08:35→22:00)
[2022-10-29] MEDS: POTASSIUM CHL 20 Meq TABLET PO SCH (08:35)
[2022-10-29 08:50] VITALS: BP 96/56
[2022-10-29 13:00] VITALS: BP 95/52
[2022-10-29 16:55] VITALS: BP 90/46
[2022-10-29 22:00] VITALS: BP 101/47
[2022-10-29] MEDS: AMITRIPTYLINE HCL 25 MG TAB PO SCH (22:00)
[2022-10-30] VITALS (7 sets, daily range): BP systolic 99–124; BP diastolic 47–61
[2022-10-30] MEDS: LACTULOSE 20Gm/30ML SOLN PO SCH ×4 (02:12→17:45)
[2022-10-30] MEDS: CYCLOBENZAPRINE HCL 10 MG TAB PO SCH ×3 (06:46→22:44)
[2022-10-30] MEDS: HCTZ 25 MG TAB PO SCH (10:00)
[2022-10-30] MEDS: LISINOPRIL 20 MG TAB PO SCH (10:00)
[2022-10-30] MEDS: FUROSEMIDE 40 MG TAB PO SCH (10:00)
[2022-10-30] MEDS: POTASSIUM CHL 20 Meq TABLET PO SCH (10:10)
[2022-10-30] MEDS: rifAXIMin 550 MG TAB PO SCH ×2 (10:10→22:44)
[2022-10-30] MEDS: ACETAMINOPHEN 325 MG TAB PO PRN (16:32)
[2022-10-30] MEDS: AMITRIPTYLINE HCL 25 MG TAB PO SCH (22:44)
[2022-10-31] VITALS (7 sets, daily range): BP systolic 88–107; BP diastolic 50–62
[2022-10-31] MEDS: LACTULOSE 20Gm/30ML SOLN PO SCH ×4 (00:35→18:17)
[2022-10-31] MEDS: CYCLOBENZAPRINE HCL 10 MG TAB PO SCH ×3 (05:43→22:26)
[2022-10-31] MEDS: HCTZ 25 MG TAB PO SCH (09:01)
[2022-10-31] MEDS: rifAXIMin 550 MG TAB PO SCH ×2 (09:01→22:27)
[2022-10-31] MEDS: FUROSEMIDE 40 MG TAB PO SCH (09:02)
[2022-10-31] MEDS: POTASSIUM CHL 20 Meq TABLET PO SCH (09:02)
[2022-10-31] MEDS: LISINOPRIL 20 MG TAB PO SCH (11:01)
[2022-10-31] MEDS: ASCORBIC ACID 500 MG TAB PO SCH ×2 (11:02→22:26)
[2022-10-31] MEDS: MULTIPLE VITAMIN TAB PO SCH (11:02)
[2022-10-31] MEDS: CHOLECALCIFEROL (VITD3) 2,000 UNIT CAP/TAB PO SCH (11:02)
[2022-10-31] MEDS: ZINC SULFATE 220mg CAP or TAB PO SCH (11:04)
[2022-10-31] MEDS: AMITRIPTYLINE HCL 25 MG TAB PO SCH (22:28)
[2022-11-01] MEDS: LACTULOSE 20Gm/30ML SOLN PO SCH ×5 (00:42→23:30)
[2022-11-01 05:00] VITALS: BP 100/66
[2022-11-01] MEDS: CYCLOBENZAPRINE HCL 10 MG TAB PO SCH ×3 (06:17→21:22)
[2022-11-01 08:00] VITALS: BP 93/54
[2022-11-01 09:04] VITALS: BP 93/56
[2022-11-01] MEDS: HCTZ 25 MG TAB PO SCH (10:00)
[2022-11-01] MEDS: LISINOPRIL 20 MG TAB PO SCH (10:00)
[2022-11-01] MEDS: FUROSEMIDE 40 MG TAB PO SCH (10:00)
[2022-11-01] MEDS: rifAXIMin 550 MG TAB PO SCH ×2 (11:18→21:22)
[2022-11-01] MEDS: POTASSIUM CHL 20 Meq TABLET PO SCH (11:18)
[2022-11-01] MEDS: ASCORBIC ACID 500 MG TAB PO SCH ×2 (11:18→21:22)
[2022-11-01] MEDS: MULTIPLE VITAMIN TAB PO SCH (11:18)
[2022-11-01] MEDS: ZINC SULFATE 220mg CAP or TAB PO SCH (11:18)
[2022-11-01] MEDS: CHOLECALCIFEROL (VITD3) 2,000 UNIT CAP/TAB PO SCH (11:18)
[2022-11-01 12:30] VITALS: BP 107/67
[2022-11-01 17:00] VITALS: BP 110/66
[2022-11-01] MEDS: ACETAMINOPHEN 325 MG TAB PO PRN (17:21)
[2022-11-01] MEDS: AMITRIPTYLINE HCL 25 MG TAB PO SCH (21:22)
[2022-11-01 22:00] VITALS: BP 105/66
[2022-11-02] VITALS (7 sets, daily range): BP systolic 94–110; BP diastolic 50–69
[2022-11-02] MEDS: LACTULOSE 20Gm/30ML SOLN PO SCH ×3 (05:30→18:07)
[2022-11-02] MEDS: CYCLOBENZAPRINE HCL 10 MG TAB PO SCH ×3 (05:31→21:44)
[2022-11-02] MEDS: LISINOPRIL 20 MG TAB PO SCH (10:00)
[2022-11-02] MEDS: HCTZ 25 MG TAB PO SCH (10:00)
[2022-11-02] MEDS: FUROSEMIDE 40 MG TAB PO SCH (10:00)
[2022-11-02] MEDS: rifAXIMin 550 MG TAB PO SCH ×2 (10:23→21:44)
[2022-11-02] MEDS: MULTIPLE VITAMIN TAB PO SCH (10:23)
[2022-11-02] MEDS: ASCORBIC ACID 500 MG TAB PO SCH ×2 (10:23→21:44)
[2022-11-02] MEDS: ZINC SULFATE 220mg CAP or TAB PO SCH (10:24)
[2022-11-02] MEDS: CHOLECALCIFEROL (VITD3) 2,000 UNIT CAP/TAB PO SCH (10:24)
[2022-11-02] MEDS: POTASSIUM CHL 20 Meq TABLET PO SCH (10:25)
[2022-11-02] MEDS: AMITRIPTYLINE HCL 25 MG TAB PO SCH (21:44)
[2022-11-03] MEDS: LACTULOSE 20Gm/30ML SOLN PO SCH ×3 (00:14→11:37)
[2022-11-03 05:00] VITALS: BP 111/79
[2022-11-03] MEDS: CYCLOBENZAPRINE HCL 10 MG TAB PO SCH ×2 (05:54→14:49)
[2022-11-03 09:27] VITALS: BP 97/57
[2022-11-03] MEDS ORDERED: ZINC220C10 PO (10:24)
[2022-11-03] MEDS ORDERED: RIFA550T PO (10:24)
[2022-11-03] MEDS ORDERED: CHOL20007 PO (10:24)
[2022-11-03] MEDS ORDERED: ASCO500T11 PO (10:24)
[2022-11-03] MEDS ORDERED: LACT10PA2 PO (10:26)
[2022-11-03] MEDS: HCTZ 25 MG TAB PO SCH (10:30)
[2022-11-03] MEDS: FUROSEMIDE 40 MG TAB PO SCH (10:30)
[2022-11-03] MEDS: LISINOPRIL 20 MG TAB PO SCH (10:30)
[2022-11-03] MEDS: ZINC SULFATE 220mg CAP or TAB PO SCH (11:33)
[2022-11-03] MEDS: rifAXIMin 550 MG TAB PO SCH (11:33)
[2022-11-03] MEDS: ASCORBIC ACID 500 MG TAB PO SCH (11:34)
[2022-11-03] MEDS: CHOLECALCIFEROL (VITD3) 2,000 UNIT CAP/TAB PO SCH (11:34)
[2022-11-03] MEDS: MULTIPLE VITAMIN TAB PO SCH (11:35)
[2022-11-03] MEDS: POTASSIUM CHL 20 Meq TABLET PO SCH (11:35)
[2022-11-03 12:39] VITALS: BP 96/64
== END 2022-11-03 17:25 | disposition home health service (06) | DRG 441 ==
LOC: EDBD 10:19 → ER 10:19 → OVERFLOW 14:47 → EAST 22:49
PROVIDERS: ADMIT Registered Nurse; ATTEND Family Medicine
DX: K76.82 Hepatic encephalopathy (principal); E43 Unspecified severe protein-calorie malnutrition; U07.1 COVID-19; I50.33 Acute on chronic diastolic (congestive) heart failure; D63.8 Anemia in other chronic diseases classified elsewhere; E87.6 Hypokalemia; K70.30 Alcoholic cirrhosis of liver without ascites; G30.9 Alzheimer's disease, unspecified; I11.0 Hypertensive heart disease with heart failure; F02.80 Dementia in other diseases classified elsewhere, unspecified severity, without behavioral disturbance, psychotic disturbance, mood disturbance, and anxiety; F10.10 Alcohol abuse, uncomplicated; Z68.25 Body mass index [BMI] 25.0-25.9, adult; Z71.41 Alcohol abuse counseling and surveillance of alcoholic; Z83.3 Family history of diabetes mellitus; Z87.11 Personal history of peptic ulcer disease; Z91.14 Patient's other noncompliance with medication regimen; Z98.84 Bariatric surgery status; Z90.49 Acquired absence of other specified parts of digestive tract
CPT/HCPCS: 36415; 70450; 74176; 74181; 80053; 80307; 80320; 81003; 81015; 82140; 83735; 83880; 84484; 85025; 85610; 87426; 93005; G0378

== ENCOUNTER → 2022-12-03 | Outpatient (CLI) | payer MEDICARE, MEDICAID ==
[~2022-12-03] MED LIST changes: +ASCO500T11 PO; +CHOL20007 PO; +RIFA550T PO; +ZINC220C10 PO
[2022-12-03 14:02] LABS: Basophils # (auto) 0 10 ^3/uL (0-0.2); Basophils % (auto) 0.5 % (0.0-2.0); Eosinophils # (auto) 0 10 ^3/uL (0-0.8); Eosinophils % (auto) 1.4 % (0.0-7.0); Hematocrit 35.3 % (36.0-46.0); Lymphocytes # (auto) 1.8 10 ^3/uL (0.4-5.4); Lymphocytes % (auto) 54.2 % (10.0-50.0); Mean Corpuscular Hemoglobin 32.4 pg (28.0-32.0); Mean Corpuscular Hgb Conc. 33.9 g/dL (32.0-36.0); Mean Corpuscular Volume 95.5 fL (80.0-100.0); Monocytes # (auto) 0.3 10 ^3/uL (0-1.3); Monocytes % (auto) 9.3 % (0.0-12.0); Neutrophils # (auto) 1.2 10 ^3/uL (1.6-8.6); Neutrophils % (auto) 34.6 % (37.0-80.0); Nucleated Red Blood Cells % 0.1 %; Red Blood Cells 3.69 10^6/uL (4.0-5.20); Red Cell Distribution Width 15.5 % (11.8-14.3); White Blood Cell 3.4 10^3/uL (4.4-10.8)
[2022-12-03 14:23] LABS: Albumin 3.2 g/dL (3.4-5.0); BUN/Creatinine Ratio 11.7; Calcium 8.9 mg/dL (8.5-10.1)
[2022-12-03 14:35] LABS: Bilirubin, Total 4.5 mg/dL (0.2-1.0); Total Protein 6.8 g/dL (6.4-8.2)
[2022-12-03 14:49] LABS: Potassium 2.6 mmol/L (3.5-5.1)
[2022-12-03 15:23] LABS: Urine Bacteria NONE SEEN /hpf (None Seen); Urine Blood Negative /uL (Negative); Urine Mucus FEW (None Seen); Urine Specific Gravity 1.016 (1.001-1.035); Urine WBC 19 /hpf (0 - 5)
== END | disposition home or self-care (01) ==
LOC: LAB 13:52
PROVIDERS: ATTEND Internal Medicine
DX: K76.82 Hepatic encephalopathy (principal); K83.8 Other specified diseases of biliary tract; F10.10 Alcohol abuse, uncomplicated; G30.9 Alzheimer's disease, unspecified; Z79.899 Other long term (current) drug therapy
CPT/HCPCS: 36415; 80053; 80061; 81001; 82140; 83036; 85025

== ENCOUNTER → 2022-12-08 | Outpatient (CLI) | payer OTHER, MEDICAID | END | disposition home or self-care (01) | LOC: XYW 12:38 | PROVIDERS: ATTEND Internal Medicine | DX: I08.3 Combined rheumatic disorders of mitral, aortic and tricuspid valves (principal); I10 Essential (primary) hypertension | CPT/HCPCS: 93306 ==

== ENCOUNTER 2022-12-14 10:21 | Emergency (ER) | payer OTHER, MEDICAID ==
[~2022-12-14] VITALS: Ht 160 cm; Wt 60.4 kg
[2022-12-14 11:03] LABS: Basophils # (auto) 0 10 ^3/uL (0-0.2); Basophils % (auto) 0.5 % (0.0-2.0); Eosinophils # (auto) 0 10 ^3/uL (0-0.8); Eosinophils % (auto) 0.6 % (0.0-7.0); Hematocrit 35.3 % (36.0-46.0); Hemoglobin 12.1 g/dL (12.2-16.2); Lymphocytes # (auto) 1.2 10 ^3/uL (0.4-5.4); Lymphocytes % (auto) 35.9 % (10.0-50.0); Mean Corpuscular Hemoglobin 32.7 pg (28.0-32.0); Mean Corpuscular Hgb Conc. 34.3 g/dL (32.0-36.0); Mean Corpuscular Volume 95.3 fL (80.0-100.0); Monocytes # (auto) 0.3 10 ^3/uL (0-1.3); Monocytes % (auto) 9.6 % (0.0-12.0); Neutrophils # (auto) 1.8 10 ^3/uL (1.6-8.6); Neutrophils % (auto) 53.4 % (37.0-80.0); Nucleated Red Blood Cells % 0.2 %; Red Blood Cells 3.71 10^6/uL (4.0-5.20); Red Cell Distribution Width 15.7 % (11.8-14.3); White Blood Cell 3.4 10^3/uL (4.4-10.8)
[2022-12-14 11:24] LABS: Albumin 2.9 g/dL (3.4-5.0); Calcium 8.1 mg/dL (8.5-10.1)
[2022-12-14 11:26] LABS: BUN/Creatinine Ratio 6.6; Bilirubin, Total 2.3 mg/dL (0.2-1.0); Total Protein 6.1 g/dL (6.4-8.2)
[2022-12-14 11:53] LABS: Magnesium 1.6 mg/dL (1.6-2.6)
[2022-12-14 12:06] LABS: INR 1.31 (0.9-1.15); Partial Thromboplastin Time 32.5 sec (24.6-33.4)
[2022-12-14] MEDS ORDERED: POTASSIUM CHL 20 Meq TABLET PO ONE (12:45)
[2022-12-14 12:53] LABS: Potassium 2.7 mmol/L (3.5-5.1)
[2022-12-14 17:09] VITALS: BP 134/72
[2022-12-14] MEDS ORDERED: KETOROLAC TROMETH 30 MG/ML 1ML VIAL IM ONE (17:30)
[2022-12-14] MEDS ORDERED: HYDROcodone-ACET 5/325MG TAB PO ONE (17:30)
== END 2022-12-14 18:02 | disposition home or self-care (01) ==
LOC: ER 10:21
DX: E87.6 Hypokalemia (principal); R53.1 Weakness; I10 Essential (primary) hypertension; Z79.899 Other long term (current) drug therapy; Z90.49 Acquired absence of other specified parts of digestive tract; Z90.89 Acquired absence of other organs; Z98.890 Other specified postprocedural states
CPT/HCPCS: 36415; 70450; 74176; 80053; 82140; 83690; 83735; 84484; 85025; 85610; 85730; 93005

== ENCOUNTER 2022-12-23 09:44 | Inpatient (IN) | payer OTHER, MEDICAID ==
[~2022-12-23] VITALS: Ht 167.6 cm; Wt 61.6 kg
[2022-12-23] MEDS ORDERED: SODIUM CHLORIDE 0.9% 500 ML IVB ONE (10:00)
[2022-12-23 10:39] LABS: Basophils # (auto) 0 10 ^3/uL (0-0.2); Basophils % (auto) 0.2 % (0.0-2.0); Eosinophils # (auto) 0 10 ^3/uL (0-0.8); Eosinophils % (auto) 0.3 % (0.0-7.0); Hematocrit 25.2 % (36.0-46.0); Hemoglobin 8.9 g/dL (12.2-16.2); Lymphocytes # (auto) 1.1 10 ^3/uL (0.4-5.4); Lymphocytes % (auto) 30.5 % (10.0-50.0); Mean Corpuscular Hemoglobin 33.8 pg (28.0-32.0); Mean Corpuscular Hgb Conc. 35.4 g/dL (32.0-36.0); Mean Corpuscular Volume 95.7 fL (80.0-100.0); Monocytes # (auto) 0.4 10 ^3/uL (0-1.3); Monocytes % (auto) 11.1 % (0.0-12.0); Neutrophils # (auto) 2.1 10 ^3/uL (1.6-8.6); Neutrophils % (auto) 57.9 % (37.0-80.0); Nucleated Red Blood Cells % 0.1 %; Red Blood Cells 2.64 10^6/uL (4.0-5.20); Red Cell Distribution Width 17.3 % (11.8-14.3); White Blood Cell 3.7 10^3/uL (4.4-10.8)
[2022-12-23 10:46] LABS: Albumin 2.6 g/dL (3.4-5.0); BUN/Creatinine Ratio 26.3; Calcium 8.2 mg/dL (8.5-10.1); Magnesium 2.1 mg/dL (1.6-2.6); Potassium 3.3 mmol/L (3.5-5.1)
[2022-12-23 10:47] LABS: INR 1.21 (0.9-1.15); Partial Thromboplastin Time 28.4 sec (24.6-33.4)
[2022-12-23 10:49] LABS: Bilirubin, Total 2.4 mg/dL (0.2-1.0); Total Protein 5.7 g/dL (6.4-8.2)
[2022-12-23 11:31] LABS: Acetaminophen 2.1 ug/mL (10-30); Salicylate < 1.7 mg/dL (2.8-20.0)
[2022-12-23] MEDS ORDERED: LACTULOSE 20Gm/30ML SOLN PO ONE (11:45)
[2022-12-23] MEDS ORDERED: LORazepam 2MG/ML-1ML VIAL IV ONE ×3 (12:00→16:45)
[2022-12-23] MEDS ORDERED: POTASSIUM CHL 20MEQ/100ML 100 ML IV ONE (14:30)
[2022-12-23] MEDS ORDERED: HALOPERIDOL LACTATE 5 MG/ML INJ VIAL IM ONE (15:30)
[2022-12-23] MEDS ORDERED: diphenhdrAMINE HCL 50 MG/1 ML VL IM ONE (15:30)
[2022-12-23] MEDS ORDERED: DOCUSATE SOD 100 MG CAP PO PRN (16:15)
[2022-12-23] MEDS ORDERED: FOLIC ACID 1 MG TAB PO ONE (16:15)
[2022-12-23] MEDS ORDERED: THIAMINE 100mg/ml INJ (200mg/2ml VIAL) IV ONE (16:15)
[2022-12-23] MEDS ORDERED: MAALOX PLUS or MAALOX 30 ML PO PRN (16:15)
[2022-12-23] MEDS ORDERED: ACETAMINOPHEN 325 MG TAB PO PRN (16:15)
[2022-12-23] MEDS ORDERED: MULTIPLE VITAMIN TAB PO ONE (16:15)
[2022-12-23] MEDS ORDERED: LORazepam 2MG/ML-1ML VIAL IV SCH (16:15)
[2022-12-23] MEDS ORDERED: ONDANSETRON HCL 4 MG/2 ML VIAL IV PRN (16:15)
[2022-12-23] MEDS ORDERED: SODIUM CHLORIDE 0.9% 1,000 ML IV ONE ×2 (16:15→20:45)
[2022-12-23] MEDS: LORazepam 2MG/ML-1ML VIAL IV SCH ×4 (16:59→22:15)
[2022-12-23] MEDS: LACTULOSE 20Gm/30ML SOLN PO SCH (18:00)
[2022-12-23] MEDS ORDERED: ALBUMIN 5% 250 ML IV ONE (20:45)
[2022-12-23 20:50] LABS: Urine Bacteria NONE SEEN /hpf (None Seen); Urine Blood Negative /uL (Negative); Urine WBC 1 /hpf (0 - 5)
[2022-12-23 21:00] LABS: Amphetamine Screen, Urine NEGATIVE (NEGATIVE); Barbiturate Scree,Urine NEGATIVE (NEGATIVE); Benzodiazephine Screen, Urine NEGATIVE (NEGATIVE); Cannabinoid Screen, Urine POSITIVE (NEGATIVE); Cocaine Screen, Urine NEGATIVE (NEGATIVE); Opiate Scree,Urine NEGATIVE (NEGATIVE)
[2022-12-23 21:08] LABS: Phencyclidine Screen, Urine NEGATIVE (NEGATIVE)
[2022-12-23] MEDS ORDERED: SUCCINYLCHOLINE CHLORIDE 20 MG/ML 10ML VIAL IV ONE ×3 (21:47→22:00)
[2022-12-23] MEDS ORDERED: ETOMIDATE (2MG/ML) 20ML VIAL IV ONE ×2 (21:47→22:00)
[2022-12-23] MEDS: NOREPINEPHRINE 8 MG/250ML KIT 250 ML IV SCH (21:50)
[2022-12-23 21:58] VITALS: BP 145/91
[2022-12-23] MEDS ORDERED: MIDAZOLAM DRIP 50 mg/50mL 50 ML IV ONE (22:04)
[2022-12-23] MEDS: MIDAZOLAM DRIP 50 mg/50mL 50 ML IV SCH (22:10)
[2022-12-24] VITALS (13 sets, daily range): BP systolic 85–113; BP diastolic 42–60
[2022-12-24] MEDS: LACTULOSE 10g/15ml SOLN 473ML PR SCH ×2 (00:02)
[2022-12-24] MEDS: LACTULOSE 20Gm/30ML SOLN PO SCH ×2 (00:06→05:51)
[2022-12-24] MEDS: LORazepam 2MG/ML-1ML VIAL IV SCH ×3 (00:15→04:15)
[2022-12-24 06:13] LABS: Basophils # (auto) 0 10 ^3/uL (0-0.2); Eosinophils # (auto) 0.1 10 ^3/uL (0-0.8); Hematocrit 21.9 % (36.0-46.0); Hemoglobin 7.7 g/dL (12.2-16.2); Monocytes # (auto) 0.6 10 ^3/uL (0-1.3); Nucleated Red Blood Cells % 0.1 %; Red Blood Cells 2.26 10^6/uL (4.0-5.20); White Blood Cell 5.2 10^3/uL (4.4-10.8)
[2022-12-24 06:15] LABS: Basophils % (auto) 0.2 % (0.0-2.0); Eosinophils % (auto) 1.1 % (0.0-7.0); Lymphocytes # (auto) 1.6 10 ^3/uL (0.4-5.4); Mean Corpuscular Hemoglobin 34.1 pg (28.0-32.0); Mean Corpuscular Hgb Conc. 35.3 g/dL (32.0-36.0); Mean Corpuscular Volume 96.6 fL (80.0-100.0); Monocytes % (auto) 11.3 % (0.0-12.0); Neutrophils # (auto) 2.9 10 ^3/uL (1.6-8.6); Neutrophils % (auto) 56.4 % (37.0-80.0); Red Cell Distribution Width 17.5 % (11.8-14.3)
[2022-12-24 06:30] LABS: BUN/Creatinine Ratio 19.2; Calcium 8.4 mg/dL (8.5-10.1)
[2022-12-24 06:39] LABS: Potassium 2.9 mmol/L (3.5-5.1)
[2022-12-24] MEDS ORDERED: POTASSIUM CHL 20MEQ/100ML 100 ML IV ONE (07:00)
[2022-12-24] MEDS: FUROSEMIDE 40 MG/4 ML VIAL IV SCH (09:47)
[2022-12-24] MEDS ORDERED: LACTULOSE 20Gm/30ML SOLN NG SCH (10:00)
[2022-12-24] MEDS ORDERED: FOLIC ACID 1 MG TAB PO SCH (10:00)
[2022-12-24] MEDS ORDERED: MULTIPLE VITAMIN TAB PO SCH (10:00)
[2022-12-24] MEDS ORDERED: THIAMINE 100mg/ml INJ (200mg/2ml VIAL) IV SCH (10:00)
[2022-12-24] MEDS: LACTULOSE 20Gm/30ML SOLN NG SCH ×2 (16:27→22:22)
[2022-12-24] MEDS: NOREPINEPHRINE 8 MG/250ML KIT 250 ML IV SCH (21:45)
[2022-12-24] MEDS: MIDAZOLAM DRIP 50 mg/50mL 50 ML IV SCH (22:45)
[2022-12-25] VITALS (12 sets, daily range): BP systolic 44–144; BP diastolic 39–85
[2022-12-25] MEDS: LACTULOSE 20Gm/30ML SOLN NG SCH ×4 (04:15→22:07)
[2022-12-25] MEDS: MIDAZOLAM DRIP 50 mg/50mL 50 ML IV SCH ×5 (05:33→21:04)
[2022-12-25 05:59] LABS: Basophils # (auto) 0 10 ^3/uL (0-0.2); Basophils % (auto) 0.5 % (0.0-2.0); Eosinophils # (auto) 0.1 10 ^3/uL (0-0.8); Eosinophils % (auto) 1.1 % (0.0-7.0); Hematocrit 24.5 % (36.0-46.0); Hemoglobin 8.4 g/dL (12.2-16.2); Lymphocytes # (auto) 1.8 10 ^3/uL (0.4-5.4); Lymphocytes % (auto) 28.5 % (10.0-50.0); Mean Corpuscular Hemoglobin 33.5 pg (28.0-32.0); Mean Corpuscular Hgb Conc. 34.3 g/dL (32.0-36.0); Mean Corpuscular Volume 97.8 fL (80.0-100.0); Monocytes # (auto) 0.8 10 ^3/uL (0-1.3); Monocytes % (auto) 12.4 % (0.0-12.0); Neutrophils # (auto) 3.6 10 ^3/uL (1.6-8.6); Neutrophils % (auto) 57.5 % (37.0-80.0); Red Cell Distribution Width 18.7 % (11.8-14.3); White Blood Cell 6.2 10^3/uL (4.4-10.8)
[2022-12-25 06:16] LABS: Albumin 2.6 g/dL (3.4-5.0); Calcium 8.3 mg/dL (8.5-10.1)
[2022-12-25 06:20] LABS: BUN/Creatinine Ratio 15.6; Bilirubin, Total 3.1 mg/dL (0.2-1.0); Total Protein 5.6 g/dL (6.4-8.2)
[2022-12-25 06:23] LABS: Potassium 2.9 mmol/L (3.5-5.1)
[2022-12-25] MEDS: POTASSIUM CHL 20MEQ/100ML 100 ML IV SCH ×3 (06:51→12:07)
[2022-12-25] MEDS: NOREPINEPHRINE 8 MG/250ML KIT 250 ML IV SCH (07:50)
[2022-12-25] MEDS: FUROSEMIDE 40 MG/4 ML VIAL IV SCH (09:54)
[2022-12-26] VITALS (12 sets, daily range): BP systolic 93–133; BP diastolic 35–60
[2022-12-26] MEDS: NOREPINEPHRINE 8 MG/250ML KIT 250 ML IV SCH (02:45)
[2022-12-26] MEDS: LACTULOSE 20Gm/30ML SOLN NG SCH ×4 (04:16→21:33)
[2022-12-26 05:52] LABS: Basophils # (auto) 0 10 ^3/uL (0-0.2); Basophils % (auto) 0.5 % (0.0-2.0); Eosinophils # (auto) 0.2 10 ^3/uL (0-0.8); Eosinophils % (auto) 1.9 % (0.0-7.0); Hematocrit 24.7 % (36.0-46.0); Hemoglobin 8.5 g/dL (12.2-16.2); Lymphocytes # (auto) 2.5 10 ^3/uL (0.4-5.4); Lymphocytes % (auto) 30.2 % (10.0-50.0); Mean Corpuscular Hemoglobin 34.1 pg (28.0-32.0); Mean Corpuscular Hgb Conc. 34.6 g/dL (32.0-36.0); Mean Corpuscular Volume 98.7 fL (80.0-100.0); Monocytes # (auto) 0.8 10 ^3/uL (0-1.3); Monocytes % (auto) 9.5 % (0.0-12.0); Neutrophils # (auto) 4.7 10 ^3/uL (1.6-8.6); Neutrophils % (auto) 57.9 % (37.0-80.0); Red Cell Distribution Width 18.4 % (11.8-14.3); White Blood Cell 8.1 10^3/uL (4.4-10.8)
[2022-12-26 06:20] LABS: Calcium 8.3 mg/dL (8.5-10.1); Magnesium 2.2 mg/dL (1.6-2.6); Potassium 3.6 mmol/L (3.5-5.1)
[2022-12-26 06:23] LABS: BUN/Creatinine Ratio 33.3
[2022-12-26] MEDS: FUROSEMIDE 40 MG/4 ML VIAL IV SCH (09:49)
[2022-12-26] MEDS: MIDAZOLAM DRIP 50 mg/50mL 50 ML IV SCH ×3 (10:01→21:34)
[2022-12-27] VITALS (28 sets, daily range): BP systolic 89–122; BP diastolic 41–55
[2022-12-27] MEDS: MIDAZOLAM DRIP 50 mg/50mL 50 ML IV SCH ×3 (01:52→23:47)
[2022-12-27] MEDS: NOREPINEPHRINE 8 MG/250ML KIT 250 ML IV SCH (03:34)
[2022-12-27] MEDS: LACTULOSE 20Gm/30ML SOLN NG SCH ×4 (04:17→22:00)
[2022-12-27 06:08] LABS: Basophils # (auto) 0 10 ^3/uL (0-0.2); Basophils % (auto) 0.4 % (0.0-2.0); Eosinophils # (auto) 0.1 10 ^3/uL (0-0.8); Hemoglobin 7.8 g/dL (12.2-16.2); Monocytes # (auto) 0.6 10 ^3/uL (0-1.3); Neutrophils # (auto) 3.2 10 ^3/uL (1.6-8.6); White Blood Cell 5.8 10^3/uL (4.4-10.8)
[2022-12-27 06:12] LABS: Eosinophils % (auto) 2.2 % (0.0-7.0); Hematocrit 22.4 % (36.0-46.0); Lymphocytes # (auto) 1.8 10 ^3/uL (0.4-5.4); Lymphocytes % (auto) 31.8 % (10.0-50.0); Mean Corpuscular Hemoglobin 34.3 pg (28.0-32.0); Mean Corpuscular Hgb Conc. 34.9 g/dL (32.0-36.0); Mean Corpuscular Volume 98.3 fL (80.0-100.0); Monocytes % (auto) 10.8 % (0.0-12.0); Neutrophils % (auto) 54.8 % (37.0-80.0); Red Blood Cells 2.28 10^6/uL (4.0-5.20); Red Cell Distribution Width 18.9 % (11.8-14.3)
[2022-12-27 06:48] LABS: Calcium 8.3 mg/dL (8.5-10.1); Potassium 3.2 mmol/L (3.5-5.1)
[2022-12-27 06:50] LABS: BUN/Creatinine Ratio 32.7
[2022-12-27] MEDS ORDERED: POTASSIUM CHL 20MEQ/100ML 100 ML IV ONE (08:30)
[2022-12-27] MEDS: FUROSEMIDE 40 MG/4 ML VIAL IV SCH ×2 (10:00→10:15)
[2022-12-28] VITALS (102 sets, daily range): BP systolic 86–132; BP diastolic 42–65
[2022-12-28 03:36] LABS: Basophils # (auto) 0 10 ^3/uL (0-0.2); Eosinophils # (auto) 0.1 10 ^3/uL (0-0.8); Eosinophils % (auto) 1.9 % (0.0-7.0); Lymphocytes # (auto) 1.6 10 ^3/uL (0.4-5.4); Monocytes # (auto) 0.6 10 ^3/uL (0-1.3); Monocytes % (auto) 10.2 % (0.0-12.0); Neutrophils # (auto) 3.7 10 ^3/uL (1.6-8.6); White Blood Cell 6.1 10^3/uL (4.4-10.8)
[2022-12-28 03:38] LABS: Basophils % (auto) 0.5 % (0.0-2.0); Hematocrit 22.6 % (36.0-46.0); Hemoglobin 7.8 g/dL (12.2-16.2); Lymphocytes % (auto) 26.8 % (10.0-50.0); Mean Corpuscular Hemoglobin 34.1 pg (28.0-32.0); Mean Corpuscular Hgb Conc. 34.5 g/dL (32.0-36.0); Neutrophils % (auto) 60.6 % (37.0-80.0); Nucleated Red Blood Cells % 0.1 %; Red Blood Cells 2.28 10^6/uL (4.0-5.20); Red Cell Distribution Width 19.3 % (11.8-14.3)
[2022-12-28 03:55] LABS: BUN/Creatinine Ratio 38.9; Calcium 7.8 mg/dL (8.5-10.1); Magnesium 1.7 mg/dL (1.6-2.6); Potassium 3.1 mmol/L (3.5-5.1)
[2022-12-28] MEDS: LACTULOSE 20Gm/30ML SOLN NG SCH ×4 (04:00→21:48)
[2022-12-28] MEDS ORDERED: POTASSIUM CHL 20MEQ/100ML 100 ML IV ONE (06:15)
[2022-12-28] MEDS: MIDAZOLAM DRIP 50 mg/50mL 50 ML IV SCH (08:21)
[2022-12-28] MEDS: FUROSEMIDE 40 MG/4 ML VIAL IV SCH (09:03)
[2022-12-28] MEDS: NOREPINEPHRINE 8 MG/250ML KIT 250 ML IV SCH (10:21)
[2022-12-29] VITALS (94 sets, daily range): BP systolic 83–132; BP diastolic 39–68
[2022-12-29] MEDS: LACTULOSE 20Gm/30ML SOLN NG SCH ×4 (04:00→22:12)
[2022-12-29 04:17] LABS: Basophils # (auto) 0 10 ^3/uL (0-0.2); Basophils % (auto) 0.3 % (0.0-2.0); Eosinophils # (auto) 0.1 10 ^3/uL (0-0.8); Eosinophils % (auto) 1.8 % (0.0-7.0); Hematocrit 21.9 % (36.0-46.0); Hemoglobin 7.6 g/dL (12.2-16.2); Lymphocytes # (auto) 1.5 10 ^3/uL (0.4-5.4); Lymphocytes % (auto) 33.2 % (10.0-50.0); Mean Corpuscular Hemoglobin 34.5 pg (28.0-32.0); Mean Corpuscular Hgb Conc. 34.9 g/dL (32.0-36.0); Mean Corpuscular Volume 98.9 fL (80.0-100.0); Monocytes # (auto) 0.5 10 ^3/uL (0-1.3); Neutrophils # (auto) 2.4 10 ^3/uL (1.6-8.6); Neutrophils % (auto) 52.7 % (37.0-80.0); Nucleated Red Blood Cells % 0.1 %; Red Blood Cells 2.22 10^6/uL (4.0-5.20); Red Cell Distribution Width 18.6 % (11.8-14.3); White Blood Cell 4.6 10^3/uL (4.4-10.8)
[2022-12-29 04:18] LABS: Potassium 3.1 mmol/L (3.5-5.1)
[2022-12-29 04:22] LABS: BUN/Creatinine Ratio 51.7
[2022-12-29] MEDS: FUROSEMIDE 40 MG/4 ML VIAL IV SCH (09:38)
[2022-12-29] MEDS ORDERED: POTASSIUM CHLORIDE 40 MEQ, LIDOCAINE 1% (LOCAL ANESTH.) 4 ML in SODIUM CHL 0.9% 250 ML IV ONE (12:30)
[2022-12-29] MEDS: NOREPINEPHRINE 8 MG/250ML KIT 250 ML IV SCH (21:45)
[2022-12-29] MEDS: rifAXIMin 550 MG TAB PO SCH (22:12)
[2022-12-30] VITALS (93 sets, daily range): BP systolic 83–107; BP diastolic 37–58
[2022-12-30 03:42] LABS: Basophils # (auto) 0 10 ^3/uL (0-0.2); Eosinophils # (auto) 0.1 10 ^3/uL (0-0.8); Lymphocytes # (auto) 1.6 10 ^3/uL (0.4-5.4); Monocytes # (auto) 0.6 10 ^3/uL (0-1.3); Nucleated Red Blood Cells % 0.1 %
[2022-12-30 03:44] LABS: Basophils % (auto) 0.5 % (0.0-2.0); Eosinophils % (auto) 1.9 % (0.0-7.0); Hematocrit 20.8 % (36.0-46.0); Hemoglobin 7.3 g/dL (12.2-16.2); Lymphocytes % (auto) 32.2 % (10.0-50.0); Mean Corpuscular Hemoglobin 34.5 pg (28.0-32.0); Mean Corpuscular Hgb Conc. 34.9 g/dL (32.0-36.0); Mean Corpuscular Volume 98.8 fL (80.0-100.0); Monocytes % (auto) 12.3 % (0.0-12.0); Neutrophils # (auto) 2.6 10 ^3/uL (1.6-8.6); Neutrophils % (auto) 53.1 % (37.0-80.0); Red Cell Distribution Width 18.4 % (11.8-14.3); White Blood Cell 4.9 10^3/uL (4.4-10.8)
[2022-12-30] MEDS: LACTULOSE 20Gm/30ML SOLN NG SCH ×2 (03:53→09:08)
[2022-12-30 03:56] LABS: Albumin 2.1 g/dL (3.4-5.0); BUN/Creatinine Ratio 30.6; Calcium 7.9 mg/dL (8.5-10.1); Magnesium 1.9 mg/dL (1.6-2.6)
[2022-12-30 03:59] LABS: Bilirubin, Total 2.6 mg/dL (0.2-1.0); Total Protein 5.3 g/dL (6.4-8.2)
[2022-12-30] MEDS: FUROSEMIDE 40 MG/4 ML VIAL IV SCH (09:09)
[2022-12-30] MEDS: rifAXIMin 550 MG TAB PO SCH ×2 (09:09→21:15)
[2022-12-30] MEDS: NOREPINEPHRINE 8 MG/250ML KIT 250 ML IV SCH (12:24)
[2022-12-30] MEDS ORDERED: levoFLOXacin 500MG 100 ML IV ONE (15:00)
[2022-12-30] MEDS ORDERED: POTASSIUM CHL 20 Meq TABLET PO ONE (15:00)
[2022-12-30] MEDS: LACTULOSE 20Gm/30ML SOLN PO SCH ×2 (15:36→21:14)
[2022-12-30] MEDS: HYDROcodone-ACET 5/325MG TAB PO PRN (18:16)
[2022-12-31] VITALS (95 sets, daily range): BP systolic 84–112; BP diastolic 42–65
[2022-12-31] MEDS: LACTULOSE 20Gm/30ML SOLN PO SCH ×4 (03:24→21:56)
[2022-12-31 04:03] LABS: Basophils # (auto) 0 10 ^3/uL (0-0.2); Basophils % (auto) 0.8 % (0.0-2.0); Eosinophils # (auto) 0.1 10 ^3/uL (0-0.8); Eosinophils % (auto) 1.1 % (0.0-7.0); Hematocrit 22.4 % (36.0-46.0); Hemoglobin 7.8 g/dL (12.2-16.2); Lymphocytes # (auto) 1.9 10 ^3/uL (0.4-5.4); Lymphocytes % (auto) 40.3 % (10.0-50.0); Mean Corpuscular Hemoglobin 34.1 pg (28.0-32.0); Mean Corpuscular Hgb Conc. 34.8 g/dL (32.0-36.0); Mean Corpuscular Volume 98.1 fL (80.0-100.0); Monocytes # (auto) 0.6 10 ^3/uL (0-1.3); Monocytes % (auto) 11.7 % (0.0-12.0); Neutrophils # (auto) 2.2 10 ^3/uL (1.6-8.6); Neutrophils % (auto) 46.1 % (37.0-80.0); Nucleated Red Blood Cells % 0.1 %; Red Blood Cells 2.28 10^6/uL (4.0-5.20); Red Cell Distribution Width 17.9 % (11.8-14.3); White Blood Cell 4.8 10^3/uL (4.4-10.8)
[2022-12-31 04:19] LABS: BUN/Creatinine Ratio 22.2; Calcium 8.3 mg/dL (8.5-10.1); Magnesium 1.5 mg/dL (1.6-2.6); Potassium 3.2 mmol/L (3.5-5.1)
[2022-12-31] MEDS: HYDROcodone-ACET 5/325MG TAB PO PRN ×2 (04:44→11:38)
[2022-12-31] MEDS: NOREPINEPHRINE 8 MG/250ML KIT 250 ML IV SCH (06:47)
[2022-12-31] MEDS: levoFLOXacin 500MG 100 ML IV SCH (09:45)
[2022-12-31] MEDS: rifAXIMin 550 MG TAB PO SCH ×2 (09:45→21:56)
[2022-12-31] MEDS ORDERED: POTASSIUM CHL 20 Meq TABLET PO ONE (12:30)
[2022-12-31] MEDS ORDERED: MIDODRINE HCL 10 MG TAB PO ONE (12:30)
[2022-12-31] MEDS: MAGNESIUM SULFATE 1GM/100ML 100 ML IV SCH ×2 (12:41→16:52)
[2022-12-31] MEDS: MIDODRINE HCL 10 MG TAB PO SCH (16:52)
[2023-01-01] VITALS (60 sets, daily range): BP systolic 80–114; BP diastolic 23–68
[2023-01-01] MEDS: LACTULOSE 20Gm/30ML SOLN PO SCH ×4 (03:32→21:38)
[2023-01-01 04:01] LABS: Basophils # (auto) 0 10 ^3/uL (0-0.2); Basophils % (auto) 0.4 % (0.0-2.0); Eosinophils # (auto) 0.1 10 ^3/uL (0-0.8); Hemoglobin 7.1 g/dL (12.2-16.2); Lymphocytes # (auto) 1.5 10 ^3/uL (0.4-5.4); Monocytes # (auto) 0.5 10 ^3/uL (0-1.3); Neutrophils # (auto) 1.6 10 ^3/uL (1.6-8.6); Red Blood Cells 2.04 10^6/uL (4.0-5.20); White Blood Cell 3.6 10^3/uL (4.4-10.8)
[2023-01-01 04:04] LABS: Eosinophils % (auto) 1.7 % (0.0-7.0); Hematocrit 20.1 % (36.0-46.0); Lymphocytes % (auto) 41.2 % (10.0-50.0); Mean Corpuscular Hemoglobin 34.6 pg (28.0-32.0); Mean Corpuscular Hgb Conc. 35.2 g/dL (32.0-36.0); Mean Corpuscular Volume 98.4 fL (80.0-100.0); Monocytes % (auto) 13.3 % (0.0-12.0); Neutrophils % (auto) 43.4 % (37.0-80.0); Red Cell Distribution Width 18.8 % (11.8-14.3)
[2023-01-01 04:19] LABS: Magnesium 1.9 mg/dL (1.6-2.6); Potassium 3.5 mmol/L (3.5-5.1)
[2023-01-01] MEDS: MIDODRINE HCL 10 MG TAB PO SCH ×3 (05:22→17:42)
[2023-01-01] MEDS: rifAXIMin 550 MG TAB PO SCH ×2 (10:02→21:38)
[2023-01-01] MEDS: levoFLOXacin 500MG 100 ML IV SCH (10:16)
[2023-01-01] MEDS ORDERED: FERROUS SULFATE 325mg EC TAB PO ONE (12:15)
[2023-01-01] MEDS ORDERED: PANTOPRAZOLE 40 MG TAB PO ONE (12:15)
[2023-01-01] MEDS: FERROUS SULFATE 325mg EC TAB PO SCH (17:41)
[2023-01-01] MEDS ORDERED: ONDANSETRON HCL 4 MG/2 ML VIAL IV PRN (18:15)
[2023-01-02] MEDS: LACTULOSE 20Gm/30ML SOLN PO SCH ×3 (03:35→17:23)
[2023-01-02] MEDS: MIDODRINE HCL 10 MG TAB PO SCH ×3 (05:06→18:50)
[2023-01-02 05:21] VITALS: BP 110/48
[2023-01-02 06:12] LABS: Basophils # (auto) 0 10 ^3/uL (0-0.2); Basophils % (auto) 0.4 % (0.0-2.0); Eosinophils # (auto) 0 10 ^3/uL (0-0.8); Eosinophils % (auto) 1.2 % (0.0-7.0); Hemoglobin 7.3 g/dL (12.2-16.2); Lymphocytes # (auto) 1.1 10 ^3/uL (0.4-5.4); Mean Corpuscular Hemoglobin 35.1 pg (28.0-32.0); Monocytes # (auto) 0.5 10 ^3/uL (0-1.3); Neutrophils # (auto) 2.1 10 ^3/uL (1.6-8.6); White Blood Cell 3.8 10^3/uL (4.4-10.8)
[2023-01-02 06:15] LABS: Hematocrit 20.6 % (36.0-46.0); Lymphocytes % (auto) 29.5 % (10.0-50.0); Mean Corpuscular Hgb Conc. 35.4 g/dL (32.0-36.0); Mean Corpuscular Volume 99.3 fL (80.0-100.0); Monocytes % (auto) 13.1 % (0.0-12.0); Neutrophils % (auto) 55.8 % (37.0-80.0); Nucleated Red Blood Cells % 0.1 %; Red Blood Cells 2.07 10^6/uL (4.0-5.20); Red Cell Distribution Width 19.2 % (11.8-14.3)
[2023-01-02] MEDS: FERROUS SULFATE 325mg EC TAB PO SCH ×2 (08:19→18:50)
[2023-01-02] MEDS ORDERED: PANTOPRAZOLE 40 MG TAB PO SCH (10:00)
[2023-01-02 10:07] VITALS: BP 92/44
[2023-01-02] MEDS: rifAXIMin 550 MG TAB PO SCH (11:02)
[2023-01-02] MEDS: levoFLOXacin 500MG 100 ML IV SCH (11:03)
[2023-01-02 15:04] VITALS: BP 111/60
[2023-01-02] MEDS ORDERED: FER325T PO (16:02)
[2023-01-02] MEDS ORDERED: RIFA550T PO (16:02)
[2023-01-02] MEDS ORDERED: MID10T GT (16:52)
[2023-01-02 17:45] VITALS: BP 89/46
[2023-01-02 18:50] VITALS: BP 89/46
== END 2023-01-02 19:50 | disposition home or self-care (01) | DRG 207 ==
LOC: EDUNIT# 09:44 → EDBD 09:44 → ER 09:44 → TELE 16:29 → ICU WEST 12-27 18:30 → TELE-EAST 01-01 14:47
PROVIDERS: ADMIT Hospitalist; ATTEND Internal Medicine
PROC: 5A1955Z Respiratory Ventilation, Greater than 96 Consecutive Hours (ICD-10-PCS; principal; 2022-12-24)
PROC: 0BH17EZ Insertion of Endotracheal Airway into Trachea, Via Natural or Artificial Opening (ICD-10-PCS; 2022-12-24)
DX: J96.00 Acute respiratory failure, unspecified whether with hypoxia or hypercapnia (principal); J98.11 Atelectasis; R57.9 Shock, unspecified; K76.82 Hepatic encephalopathy; F10.129 Alcohol abuse with intoxication, unspecified; E11.9 Type 2 diabetes mellitus without complications; K70.30 Alcoholic cirrhosis of liver without ascites; Z20.822 Contact with and (suspected) exposure to COVID-19; I10 Essential (primary) hypertension; E87.6 Hypokalemia; D64.9 Anemia, unspecified; F02.80 Dementia in other diseases classified elsewhere, unspecified severity, without behavioral disturbance, psychotic disturbance, mood disturbance, and anxiety; G30.9 Alzheimer's disease, unspecified; Z79.899 Other long term (current) drug therapy; Z80.42 Family history of malignant neoplasm of prostate; Z83.3 Family history of diabetes mellitus; Z87.11 Personal history of peptic ulcer disease; Z98.84 Bariatric surgery status; Z87.440 Personal history of urinary (tract) infections; Z90.49 Acquired absence of other specified parts of digestive tract
CPT/HCPCS: 36415; 36600; 71045; 80048; 80053; 80307; 80320; 80329; 81001; 82140; 82805; 82962; 83605; 83735; 84484; 85025; 85610; 85730; 87040; 87070; 87081; 87205; 87426; 93005; 94002; 94003; 96360; 97110; 97116; 97163; 97530; G0378; J0330; J1956; J2001; J2250; J2405; J3480

== ENCOUNTER 2023-02-01 02:58 | Inpatient (IN) | payer OTHER, MEDICAID ==
[~2023-02-01] VITALS: Ht 167.6 cm; Wt 67.8 kg
[~2023-02-01 02:58] MED LIST changes: -BISA-65; +FER325T PO; +MID10T GT
[2023-02-01 03:45] LABS: Basophils # (auto) 0 10 ^3/uL (0-0.2); Basophils % (auto) 0.6 % (0.0-2.0); Eosinophils # (auto) 0.1 10 ^3/uL (0-0.8); Eosinophils % (auto) 1.6 % (0.0-7.0); Hematocrit 29.7 % (36.0-46.0); Lymphocytes # (auto) 1.8 10 ^3/uL (0.4-5.4); Lymphocytes % (auto) 43.3 % (10.0-50.0); Mean Corpuscular Hgb Conc. 33.7 g/dL (32.0-36.0); Monocytes # (auto) 0.4 10 ^3/uL (0-1.3); Neutrophils # (auto) 1.9 10 ^3/uL (1.6-8.6); Neutrophils % (auto) 45.5 % (37.0-80.0); Red Blood Cells 3.03 10^6/uL (4.0-5.20); Red Cell Distribution Width 15.5 % (11.8-14.3); White Blood Cell 4.1 10^3/uL (4.4-10.8)
[2023-02-01 03:54] LABS: Alanine Aminotransferase 26 U/L (13-56); Albumin 2.8 g/dL (3.4-5.0); Anion Gap 7 (5-15); Aspartate Aminotransferase 41 U/L (15-37); BUN/Creatinine Ratio 26.9; Blood Alcohol < 3.0 mg/dL (0-5); Blood Urea Nitrogen 14 mg/dL (7-18); Calcium 8.3 mg/dL (8.5-10.1); Carbon Dioxide 24 mmol/L (21-32); Chloride 112 mmol/L (98-107); GFR African American 155 mL/min; GFR Non-African American 128 mL/min; Glucose 106 mg/dL (74-106); Potassium 3.4 mmol/L (3.5-5.1); Sodium 143 mmol/L (136-145)
[2023-02-01 03:57] LABS: Alkaline Phosphatase 102 U/L (45-117); Bilirubin, Total 1.9 mg/dL (0.2-1.0); Total Protein 6.5 g/dL (6.4-8.2)
[2023-02-01] MEDS ORDERED: LACTULOSE 20Gm/30ML SOLN PO ONE (04:30)
[2023-02-01 04:45] LABS: INR 1.21 (0.9-1.15); Partial Thromboplastin Time 30.1 sec (24.6-33.4)
[2023-02-01 05:28] LABS: Urine Bacteria NONE SEEN /hpf (None Seen); Urine Blood Negative /uL (Negative); Urine Specific Gravity 1.009 (1.001-1.035); Urine WBC 2 /hpf (0 - 5)
[2023-02-01 05:54] LABS: Alcohol, Urine < 3.0 mg/dL (0-10); Amphetamine Screen, Urine NEGATIVE (NEGATIVE); Barbiturate Scree,Urine NEGATIVE (NEGATIVE); Benzodiazephine Screen, Urine NEGATIVE (NEGATIVE); Cannabinoid Screen, Urine POSITIVE (NEGATIVE); Cocaine Screen, Urine NEGATIVE (NEGATIVE); Opiate Scree,Urine NEGATIVE (NEGATIVE); Phencyclidine Screen, Urine NEGATIVE (NEGATIVE)
[2023-02-01] MEDS ORDERED: POTASSIUM EFFERVESENT TAB 25 MEQ PO ONE (11:00)
[2023-02-01] MEDS ORDERED: NITROGLYCERIN 0.4 MG SL TAB SL PRN (11:00)
[2023-02-01] MEDS ORDERED: cefTRIAXone 1GM/50ML D5W 50 ML IV ONE (11:00)
[2023-02-01] MEDS ORDERED: MORPHINE SULFATE INJ 2 MG/ml SYRG IV PRN (11:00)
[2023-02-01] MEDS ORDERED: AZITHROMYCIN 500MG/ 250ML 250 ML IV ONE (11:00)
[2023-02-01] MEDS ORDERED: PANTOPRAZOLE 40 MG/10 ML VIAL INJ IV ONE (11:15)
[2023-02-01] MEDS ORDERED: FUROSEMIDE 40 MG/4 ML VIAL IV ONE (11:15)
[2023-02-01] MEDS ORDERED: hydrALAZINE HCL 20 MG/ML VL IV PRN (11:30)
[2023-02-01] MEDS: LACTULOSE 20Gm/30ML SOLN PO SCH ×3 (11:38→23:16)
[2023-02-01] MEDS: FERROUS SULFATE 325mg EC TAB PO SCH (18:00)
[2023-02-01] MEDS ORDERED: AMITRIPTYLINE HCL 25 MG TAB PO SCH (22:00)
[2023-02-01 22:44] VITALS: BP 113/63
[2023-02-01] MEDS: rifAXIMin 550 MG TAB PO SCH (23:14)
[2023-02-01] MEDS: MIDODRINE HCL 10 MG TAB PO SCH (23:14)
[2023-02-02] VITALS (7 sets, daily range): BP systolic 82–112; BP diastolic 43–61
[2023-02-02 05:21] LABS: Basophils # (auto) 0 10 ^3/uL (0-0.2); Basophils % (auto) 0.6 % (0.0-2.0); Eosinophils # (auto) 0 10 ^3/uL (0-0.8); Eosinophils % (auto) 1.6 % (0.0-7.0); Hematocrit 25.2 % (36.0-46.0); Hemoglobin 8.8 g/dL (12.2-16.2); Lymphocytes # (auto) 1.4 10 ^3/uL (0.4-5.4); Lymphocytes % (auto) 49.7 % (10.0-50.0); Mean Corpuscular Hemoglobin 33.6 pg (28.0-32.0); Mean Corpuscular Hgb Conc. 34.9 g/dL (32.0-36.0); Mean Corpuscular Volume 96.3 fL (80.0-100.0); Monocytes # (auto) 0.3 10 ^3/uL (0-1.3); Monocytes % (auto) 11.5 % (0.0-12.0); Neutrophils % (auto) 36.6 % (37.0-80.0); Red Blood Cells 2.62 10^6/uL (4.0-5.20); Red Cell Distribution Width 15.2 % (11.8-14.3); White Blood Cell 2.8 10^3/uL (4.4-10.8)
[2023-02-02 05:46] LABS: Albumin 2.2 g/dL (3.4-5.0); Calcium 7.8 mg/dL (8.5-10.1); Potassium 3.3 mmol/L (3.5-5.1)
[2023-02-02 05:49] LABS: BUN/Creatinine Ratio 15.7 (10.0-20.0); Bilirubin, Total 1.6 mg/dL (0.2-1.0); Total Protein 5.2 g/dL (6.4-8.2)
[2023-02-02] MEDS: LACTULOSE 20Gm/30ML SOLN PO SCH ×3 (06:04→17:40)
[2023-02-02] MEDS: FERROUS SULFATE 325mg EC TAB PO SCH ×2 (09:15→17:40)
[2023-02-02] MEDS: POTASSIUM CHL 20 Meq TABLET PO SCH (09:15)
[2023-02-02] MEDS: cefTRIAXone 1GM/50ML D5W 50 ML IV SCH (09:17)
[2023-02-02] MEDS: PREGABALIN CAPSULE 75 MG CAP PO SCH (09:18)
[2023-02-02] MEDS: rifAXIMin 550 MG TAB PO SCH ×2 (09:18→22:00)
[2023-02-02] MEDS: MIDODRINE HCL 10 MG TAB PO SCH ×2 (09:19→21:59)
[2023-02-02] MEDS ORDERED: PANTOPRAZOLE 40 MG/10 ML VIAL INJ IV SCH (10:00)
[2023-02-02] MEDS ORDERED: AZITHROMYCIN 500MG/ 250ML 250 ML IV SCH (10:00)
[2023-02-02] MEDS ORDERED: FUROSEMIDE 20 MG/2 ML VIAL IV SCH (10:00)
[2023-02-02] MEDS ORDERED: ENOXAPARIN SOD 40 MG/0.4 ML SYRINGE SC SCH (10:00)
[2023-02-02] MEDS ORDERED: PATIENTS OWN MEDICATION (Lisinopril & Hydrochlorothiazi (Zestoretic 20-25 mg) 1 TAB) PO SCH (10:00)
[2023-02-02] MEDS ORDERED: MIDO5TAB3 PO (15:16)
[2023-02-02] MEDS ORDERED: ACETAMINOPHEN 500 MG TAB PO PRN (16:00)
[2023-02-03] MEDS: LACTULOSE 20Gm/30ML SOLN PO SCH ×5 (00:38→23:40)
[2023-02-03 04:44] VITALS: BP 90/44
[2023-02-03 06:48] LABS: Basophils # (auto) 0 10 ^3/uL (0-0.2); Basophils % (auto) 0.6 % (0.0-2.0); Eosinophils # (auto) 0.1 10 ^3/uL (0-0.8); Hematocrit 25.3 % (36.0-46.0); Hemoglobin 8.8 g/dL (12.2-16.2); Lymphocytes # (auto) 1.4 10 ^3/uL (0.4-5.4); Lymphocytes % (auto) 50.2 % (10.0-50.0); Mean Corpuscular Hemoglobin 33.5 pg (28.0-32.0); Mean Corpuscular Hgb Conc. 34.7 g/dL (32.0-36.0); Mean Corpuscular Volume 96.5 fL (80.0-100.0); Monocytes # (auto) 0.3 10 ^3/uL (0-1.3); Monocytes % (auto) 10.1 % (0.0-12.0); Neutrophils # (auto) 1.1 10 ^3/uL (1.6-8.6); Neutrophils % (auto) 37.1 % (37.0-80.0); Nucleated Red Blood Cells % 0.3 %; Red Blood Cells 2.63 10^6/uL (4.0-5.20); Red Cell Distribution Width 14.9 % (11.8-14.3); White Blood Cell 2.9 10^3/uL (4.4-10.8)
[2023-02-03 06:56] LABS: BUN/Creatinine Ratio 22.4 (10.0-20.0); Potassium 3.8 mmol/L (3.5-5.1)
[2023-02-03] MEDS: FERROUS SULFATE 325mg EC TAB PO SCH ×2 (08:57→17:52)
[2023-02-03 09:00] VITALS: BP 96/53
[2023-02-03] MEDS: cefTRIAXone 1GM/50ML D5W 50 ML IV SCH (09:04)
[2023-02-03] MEDS: POTASSIUM CHL 20 Meq TABLET PO SCH (09:04)
[2023-02-03] MEDS: rifAXIMin 550 MG TAB PO SCH ×2 (09:08→22:40)
[2023-02-03] MEDS: PANTOPRAZOLE 40 MG TAB PO SCH (09:08)
[2023-02-03] MEDS: MIDODRINE HCL 10 MG TAB PO SCH ×2 (09:22→22:40)
[2023-02-03] MEDS: FUROSEMIDE 20 MG TAB PO SCH (11:17)
[2023-02-03] MEDS: PREGABALIN CAPSULE 75 MG CAP PO SCH (11:17)
[2023-02-03] MEDS ORDERED: LACTULOSE 20Gm/30ML SOLN PO ONE (11:45)
[2023-02-03 13:00] VITALS: BP 105/93
[2023-02-03 16:58] VITALS: BP 103/58
[2023-02-03 22:00] VITALS: BP 105/64
[2023-02-04 05:00] VITALS: BP 132/54
[2023-02-04] MEDS: LACTULOSE 20Gm/30ML SOLN PO SCH ×2 (05:47→12:00)
[2023-02-04] MEDS: FERROUS SULFATE 325mg EC TAB PO SCH (08:00)
[2023-02-04 08:41] VITALS: BP 101/56
[2023-02-04] MEDS: cefTRIAXone 1GM/50ML D5W 50 ML IV SCH (09:00)
[2023-02-04] MEDS: MIDODRINE HCL 10 MG TAB PO SCH (10:14)
[2023-02-04] MEDS: rifAXIMin 550 MG TAB PO SCH (10:14)
[2023-02-04] MEDS: POTASSIUM CHL 20 Meq TABLET PO SCH (10:14)
[2023-02-04] MEDS: PREGABALIN CAPSULE 75 MG CAP PO SCH (10:15)
[2023-02-04] MEDS: FUROSEMIDE 20 MG TAB PO SCH (10:15)
[2023-02-04] MEDS: PANTOPRAZOLE 40 MG TAB PO SCH (10:15)
[2023-02-04] MEDS ORDERED: LACT10SO70 PO (12:46)
[2023-02-04 12:58] VITALS: BP 104/57
[2023-02-04 13:54] VITALS: BP 101/56
[2023-02-04 15:06] VITALS: BP 117/74
== END 2023-02-04 15:46 | disposition home or self-care (01) | DRG 442 ==
LOC: ER 02:58 → EDBD 02:58 → TELE 10:54 → TELE-WESTW 22:00 → WEST WING 02-02 19:21
PROVIDERS: ADMIT Registered Nurse; ATTEND Internal Medicine
DX: K76.82 Hepatic encephalopathy (principal); E44.0 Moderate protein-calorie malnutrition; I50.32 Chronic diastolic (congestive) heart failure; K70.30 Alcoholic cirrhosis of liver without ascites; D50.9 Iron deficiency anemia, unspecified; R09.89 Other specified symptoms and signs involving the circulatory and respiratory systems; Z20.822 Contact with and (suspected) exposure to COVID-19; F12.90 Cannabis use, unspecified, uncomplicated; F02.80 Dementia in other diseases classified elsewhere, unspecified severity, without behavioral disturbance, psychotic disturbance, mood disturbance, and anxiety; G30.9 Alzheimer's disease, unspecified; Z87.11 Personal history of peptic ulcer disease; Z86.19 Personal history of other infectious and parasitic diseases; Z90.49 Acquired absence of other specified parts of digestive tract; Z68.24 Body mass index [BMI] 24.0-24.9, adult; I95.89 Other hypotension
CPT/HCPCS: 36415; 70450; 71045; 80048; 80053; 80307; 80320; 81001; 82140; 83605; 83735; 83880; 84484; 85025; 85610; 85730; 87040; 87045; 87086; 87426; 87427; 93005; 96365; 96367; 96375; C9113; G0378; J0696

== ENCOUNTER → 2023-02-10 | Outpatient (CLI) | payer OTHER, MEDICAID ==
[~2023-02-10] MED LIST changes: +LACT10SO70 PO; -MID10T GT; +MIDO5TAB3 PO
[2023-02-10 09:04] LABS: Hematocrit 28.9 % (36.0-46.0); Hemoglobin 10.1 g/dL (12.2-16.2); Mean Corpuscular Hemoglobin 33.2 pg (28.0-32.0); Mean Corpuscular Volume 94.8 fL (80.0-100.0); Red Blood Cells 3.05 10^6/uL (4.0-5.20); Red Cell Distribution Width 15.3 % (11.8-14.3); White Blood Cell 3.1 10^3/uL (4.4-10.8)
[2023-02-10 09:15] LABS: Basophils % (manual) 0 (0.0-2.0); Blast Cells 0; Eosinophils % (manual) 0 (0-7); Metamyelocytes % 0; Myelocytes % 0; Promyelocytes % 0; Reactive Lymphocytes 0
[2023-02-10 09:24] LABS: INR 1.23 (0.9-1.15)
[2023-02-10 09:33] LABS: Potassium 3.8 mmol/L (3.5-5.1)
[2023-02-10 09:42] LABS: Albumin 2.4 g/dL (3.4-5.0); BUN/Creatinine Ratio 16.3 (10.0-20.0); Bilirubin, Total 1.5 mg/dL (0.2-1.0); Calcium 8.4 mg/dL (8.5-10.1); Total Protein 6.1 g/dL (6.4-8.2)
[2023-02-10 14:36] LABS: Band Neutrophils % (manual) 1; Lymphocytes % (manual) 77 (10.0-50.0); Monocytes % (manual) 11 (0-12)
== END | disposition home or self-care (01) ==
LOC: LAB 08:28
PROVIDERS: ATTEND Internal Medicine
DX: K70.30 Alcoholic cirrhosis of liver without ascites (principal); D64.9 Anemia, unspecified; D68.9 Coagulation defect, unspecified
CPT/HCPCS: 36415; 80053; 82105; 82140; 85007; 85027; 85610

== ENCOUNTER 2023-02-14 22:26 | Inpatient (IN) | payer OTHER, MEDICAID ==
[~2023-02-14] VITALS: Ht 165.1 cm; Wt 62.5 kg
[2023-02-14 23:10] LABS: Basophils # (auto) 0 10 ^3/uL (0-0.2); Basophils % (auto) 0.7 % (0.0-2.0); Eosinophils # (auto) 0.1 10 ^3/uL (0-0.8); Eosinophils % (auto) 1.6 % (0.0-7.0); Hematocrit 28.9 % (36.0-46.0); Hemoglobin 9.9 g/dL (12.2-16.2); Lymphocytes # (auto) 1.4 10 ^3/uL (0.4-5.4); Lymphocytes % (auto) 44.9 % (10.0-50.0); Mean Corpuscular Hemoglobin 32.5 pg (28.0-32.0); Mean Corpuscular Hgb Conc. 34.4 g/dL (32.0-36.0); Mean Corpuscular Volume 94.5 fL (80.0-100.0); Monocytes # (auto) 0.3 10 ^3/uL (0-1.3); Monocytes % (auto) 10.7 % (0.0-12.0); Neutrophils # (auto) 1.4 10 ^3/uL (1.6-8.6); Neutrophils % (auto) 42.1 % (37.0-80.0); Nucleated Red Blood Cells % 0.1 %; Red Blood Cells 3.06 10^6/uL (4.0-5.20); Red Cell Distribution Width 15.4 % (11.8-14.3); White Blood Cell 3.2 10^3/uL (4.4-10.8)
[2023-02-14 23:30] LABS: Albumin 2.6 g/dL (3.4-5.0); Anion Gap 6 (5-15); Blood Alcohol < 3.0 mg/dL (0-5); Blood Urea Nitrogen 9 mg/dL (7-18); Calcium 8.3 mg/dL (8.5-10.1); Carbon Dioxide 27 mmol/L (21-32); Chloride 112 mmol/L (98-107); Glucose 99 mg/dL (74-106); Magnesium 2.6 mg/dL (1.6-2.6); Potassium 3.7 mmol/L (3.5-5.1); Sodium 145 mmol/L (136-145)
[2023-02-14 23:34] LABS: Alanine Aminotransferase 37 U/L (13-56); Alkaline Phosphatase 142 U/L (45-117); Aspartate Aminotransferase 50 U/L (15-37); BUN/Creatinine Ratio 17.6 (10.0-20.0); Bilirubin, Total 1.4 mg/dL (0.2-1.0); GFR African American 158 mL/min; GFR Non-African American 131 mL/min; Total Protein 6.5 g/dL (6.4-8.2)
[2023-02-14 23:43] LABS: INR 1.2 (0.9-1.15); Partial Thromboplastin Time 28.9 sec (24.6-33.4)
[2023-02-15 01:48] LABS: Urine Bacteria NONE SEEN /hpf (None Seen); Urine Blood Negative /uL (Negative); Urine Specific Gravity 1.009 (1.001-1.035); Urine WBC 1 /hpf (0 - 5)
[2023-02-15 01:59] LABS: Alcohol, Urine < 3.0 mg/dL (0-10); Amphetamine Screen, Urine NEGATIVE (NEGATIVE); Barbiturate Scree,Urine NEGATIVE (NEGATIVE); Benzodiazephine Screen, Urine NEGATIVE (NEGATIVE); Cannabinoid Screen, Urine POSITIVE (NEGATIVE); Cocaine Screen, Urine NEGATIVE (NEGATIVE); Opiate Scree,Urine NEGATIVE (NEGATIVE); Phencyclidine Screen, Urine NEGATIVE (NEGATIVE)
[2023-02-15] MEDS ORDERED: LACTULOSE 20Gm/30ML SOLN PO SCH (06:45)
[2023-02-15] MEDS ORDERED: NITROGLYCERIN 0.4 MG SL TAB SL PRN (06:45)
[2023-02-15] MEDS ORDERED: MORPHINE SULFATE INJ 2 MG/ml SYRG IV PRN (06:45)
[2023-02-15] MEDS: MIDODRINE HCL 10 MG TAB PO SCH ×2 (14:28→23:16)
[2023-02-15] MEDS: FUROSEMIDE 40 MG TAB PO SCH ×2 (14:28→14:31)
[2023-02-15] MEDS: PANTOPRAZOLE 40 MG TAB PO SCH (14:29)
[2023-02-15] MEDS: rifAXIMin 550 MG TAB PO SCH ×2 (14:30→23:26)
[2023-02-15] MEDS: LACTULOSE 20Gm/30ML SOLN PO SCH ×2 (14:39→23:16)
[2023-02-15 23:32] VITALS: BP 103/62
[2023-02-16 05:45] VITALS: BP 102/50
[2023-02-16] MEDS: LACTULOSE 20Gm/30ML SOLN PO SCH ×3 (06:31→21:22)
[2023-02-16 06:50] LABS: Potassium 3.6 mmol/L (3.5-5.1)
[2023-02-16 07:01] LABS: Albumin 2.4 g/dL (3.4-5.0); BUN/Creatinine Ratio 18.5 (10.0-20.0); Bilirubin, Total 1.8 mg/dL (0.2-1.0); Calcium 8.3 mg/dL (8.5-10.1); Total Protein 5.9 g/dL (6.4-8.2)
[2023-02-16 07:08] LABS: Basophils # (auto) 0 10 ^3/uL (0-0.2); Basophils % (auto) 0.4 % (0.0-2.0); Eosinophils # (auto) 0.1 10 ^3/uL (0-0.8); Eosinophils % (auto) 2.3 % (0.0-7.0); Hematocrit 27.5 % (36.0-46.0); Hemoglobin 9.7 g/dL (12.2-16.2); Lymphocytes # (auto) 1.8 10 ^3/uL (0.4-5.4); Lymphocytes % (auto) 53.2 % (10.0-50.0); Mean Corpuscular Hemoglobin 32.9 pg (28.0-32.0); Mean Corpuscular Hgb Conc. 35.2 g/dL (32.0-36.0); Mean Corpuscular Volume 93.3 fL (80.0-100.0); Monocytes # (auto) 0.4 10 ^3/uL (0-1.3); Monocytes % (auto) 11.1 % (0.0-12.0); Neutrophils # (auto) 1.1 10 ^3/uL (1.6-8.6); Nucleated Red Blood Cells % 0.2 %; Red Blood Cells 2.95 10^6/uL (4.0-5.20); Red Cell Distribution Width 15.1 % (11.8-14.3); White Blood Cell 3.4 10^3/uL (4.4-10.8)
[2023-02-16 08:30] VITALS: BP 103/51
[2023-02-16 08:41] VITALS: BP 103/51
[2023-02-16] MEDS: PANTOPRAZOLE 40 MG TAB PO SCH (10:13)
[2023-02-16] MEDS: rifAXIMin 550 MG TAB PO SCH ×2 (10:13→21:22)
[2023-02-16] MEDS: MIDODRINE HCL 10 MG TAB PO SCH ×2 (10:13→21:22)
[2023-02-16] MEDS: FUROSEMIDE 40 MG TAB PO SCH (10:13)
[2023-02-16 12:48] VITALS: BP 114/60
[2023-02-16] MEDS ORDERED: FOLI1TAB6 PO (13:13)
[2023-02-16] MEDS ORDERED: ZINC220C8 PO (13:14)
[2023-02-16] MEDS ORDERED: HYDR-4902 PO (13:14)
[2023-02-16] MEDS ORDERED: ESCI10TA PO (13:16)
[2023-02-16] MEDS ORDERED: SPIR25TA8 PO (13:16)
[2023-02-16] MEDS ORDERED: DOCU100T7 PO (13:17)
[2023-02-16] MEDS ORDERED: CYPR4TAB50 PO (13:17)
[2023-02-16] MEDS ORDERED: BISA5TAB65 PO (13:18)
[2023-02-16] MEDS ORDERED: LACTULOSE 20Gm/30ML SOLN PO ONE (14:00)
[2023-02-16] MEDS: HYDROcodone-ACET 5/325MG TAB PO PRN (14:27)
[2023-02-16] MEDS: ONDANSETRON HCL 4 MG/2 ML VIAL IV PRN (15:47)
[2023-02-16 16:47] VITALS: BP 111/66
[2023-02-16 22:00] VITALS: BP 102/49
[2023-02-17 05:00] VITALS: BP 107/48
[2023-02-17] MEDS: HYDROcodone-ACET 5/325MG TAB PO PRN ×2 (05:12→13:04)
[2023-02-17] MEDS: LACTULOSE 20Gm/30ML SOLN PO SCH ×4 (05:38→22:50)
[2023-02-17 09:00] VITALS: BP 112/61
[2023-02-17] MEDS: MIDODRINE HCL 10 MG TAB PO SCH ×2 (09:25→22:50)
[2023-02-17] MEDS: FUROSEMIDE 40 MG TAB PO SCH (09:25)
[2023-02-17] MEDS: PANTOPRAZOLE 40 MG TAB PO SCH (09:26)
[2023-02-17] MEDS: rifAXIMin 550 MG TAB PO SCH ×2 (09:26→22:50)
[2023-02-17] MEDS ORDERED: LACT10SO70 PO (11:29)
[2023-02-17 12:54] VITALS: BP 134/65
[2023-02-17 16:57] VITALS: BP 103/60
[2023-02-17 20:00] VITALS: BP 123/63
[2023-02-17] MEDS: ONDANSETRON HCL 4 MG/2 ML VIAL IV PRN (21:16)
[2023-02-17 22:00] VITALS: BP 123/63
== END 2023-02-18 01:35 | disposition home or self-care (01) | DRG 442 ==
LOC: ER 22:26 → EDBD 22:26 → OVERFLOW 02-15 06:45 → EAST 02-15 21:07
PROVIDERS: ADMIT Nurse Practitioner; ATTEND Internal Medicine
DX: K76.82 Hepatic encephalopathy (principal); E44.0 Moderate protein-calorie malnutrition; D64.9 Anemia, unspecified; D72.819 Decreased white blood cell count, unspecified; E83.51 Hypocalcemia; K70.30 Alcoholic cirrhosis of liver without ascites; Z20.822 Contact with and (suspected) exposure to COVID-19; I95.9 Hypotension, unspecified; F02.80 Dementia in other diseases classified elsewhere, unspecified severity, without behavioral disturbance, psychotic disturbance, mood disturbance, and anxiety; G30.9 Alzheimer's disease, unspecified; I10 Essential (primary) hypertension; E87.8 Other disorders of electrolyte and fluid balance, not elsewhere classified; Z87.11 Personal history of peptic ulcer disease; Z90.49 Acquired absence of other specified parts of digestive tract
CPT/HCPCS: 36415; 70450; 71045; 80053; 80307; 80320; 81001; 82140; 83605; 83735; 84484; 85025; 85610; 85730; 87081; 87426; 93005; G0378; J2405

== ENCOUNTER 2023-02-23 07:33 | Inpatient (IN) | payer OTHER, MEDICAID ==
[~2023-02-23] VITALS: Ht 157.5 cm; Wt 67.8 kg
[~2023-02-23 07:33] MED LIST changes: -AMIT25TA12 PO; +BISA5TAB65 PO; -CYCL-839 PO; +CYPR4TAB50 PO; +DOCU100T7 PO; +ESCI10TA PO; -FERR27TA2 PO; +FOLI1TAB6 PO; +HYDR-4902 PO; -LISI-707 PO; -MORP15TA PO; -ONDA-188; +SPIR25TA8 PO; +ZINC220C8 PO
[2023-02-23] MEDS ORDERED: LACTULOSE 20Gm/30ML SOLN PO ONE (08:00)
[2023-02-23 08:15] LABS: Basophils # (auto) 0 10 ^3/uL (0-0.2); Basophils % (auto) 0.2 % (0.0-2.0); Eosinophils # (auto) 0.1 10 ^3/uL (0-0.8); Eosinophils % (auto) 2.7 % (0.0-7.0); Hematocrit 27.7 % (36.0-46.0); Hemoglobin 9.5 g/dL (12.2-16.2); Lymphocytes # (auto) 1.2 10 ^3/uL (0.4-5.4); Lymphocytes % (auto) 42.3 % (10.0-50.0); Mean Corpuscular Hemoglobin 32.8 pg (28.0-32.0); Mean Corpuscular Hgb Conc. 34.3 g/dL (32.0-36.0); Mean Corpuscular Volume 95.8 fL (80.0-100.0); Monocytes # (auto) 0.4 10 ^3/uL (0-1.3); Monocytes % (auto) 14.5 % (0.0-12.0); Neutrophils # (auto) 1.2 10 ^3/uL (1.6-8.6); Neutrophils % (auto) 40.3 % (37.0-80.0); Red Blood Cells 2.89 10^6/uL (4.0-5.20); Red Cell Distribution Width 15.8 % (11.8-14.3); White Blood Cell 2.9 10^3/uL (4.4-10.8)
[2023-02-23 08:28] LABS: Albumin 2.7 g/dL (3.4-5.0); Calcium 8.5 mg/dL (8.5-10.1); Potassium 3.3 mmol/L (3.5-5.1)
[2023-02-23 08:30] LABS: BUN/Creatinine Ratio 20.4 (10.0-20.0); Bilirubin, Total 1.5 mg/dL (0.2-1.0); Total Protein 6.3 g/dL (6.4-8.2)
[2023-02-23] MEDS ORDERED: POTASSIUM CHL 20MEQ/100ML 100 ML IV ONE (08:45)
[2023-02-23] MEDS ORDERED: SODIUM CHLORIDE 0.9% 1,000 ML IV ONE (08:45)
[2023-02-23] MEDS ORDERED: IODIXANOL 320MG/ML 100ML BTL IV ONE (09:03)
[2023-02-23] MEDS ORDERED: LORazepam 2MG/ML-1ML VIAL ONE (09:05)
[2023-02-23] MEDS ORDERED: LORazepam 2MG/ML-1ML VIAL IV ONE ×2 (09:15→17:30)
[2023-02-23 09:52] LABS: Magnesium 2.8 mg/dL (1.6-2.6)
[2023-02-23] MEDS: PANTOPRAZOLE 40 MG/10 ML VIAL INJ IV SCH (10:03)
[2023-02-23] MEDS: LACTATED RINGER'S 1,000 ML IV SCH ×3 (10:04→23:31)
[2023-02-23] MEDS ORDERED: IOHEXOL 350 MG/ML 100ML IJ ONE (12:51)
[2023-02-23 13:17] LABS: Urine Bacteria NONE SEEN /hpf (None Seen); Urine Blood Negative /uL (Negative); Urine WBC 5 /hpf (0 - 5)
[2023-02-23 13:50] LABS: Amphetamine Screen, Urine NEGATIVE (NEGATIVE); Barbiturate Scree,Urine NEGATIVE (NEGATIVE); Benzodiazephine Screen, Urine NEGATIVE (NEGATIVE); Cannabinoid Screen, Urine POSITIVE (NEGATIVE); Cocaine Screen, Urine NEGATIVE (NEGATIVE); Opiate Scree,Urine NEGATIVE (NEGATIVE)
[2023-02-23 14:18] LABS: Phencyclidine Screen, Urine NEGATIVE (NEGATIVE)
[2023-02-23] MEDS ORDERED: LACTULOSE 20Gm/30ML SOLN PO SCH (19:00)
[2023-02-23] MEDS ORDERED: LACTULOSE 20Gm/30ML SOLN GT SCH (21:30)
[2023-02-23 22:00] VITALS: BP 161/74
[2023-02-23] MEDS: LACTULOSE 20Gm/30ML SOLN NG SCH (23:31)
[2023-02-24 05:00] VITALS: BP 99/65
[2023-02-24] MEDS: LACTULOSE 20Gm/30ML SOLN NG SCH (05:40)
[2023-02-24 06:38] LABS: Albumin 2.3 g/dL (3.4-5.0); Calcium 8.1 mg/dL (8.5-10.1); Potassium 3.2 mmol/L (3.5-5.1)
[2023-02-24 06:41] LABS: BUN/Creatinine Ratio 16.3 (10.0-20.0); Bilirubin, Total 1.9 mg/dL (0.2-1.0); Total Protein 5.5 g/dL (6.4-8.2)
[2023-02-24 06:47] LABS: Basophils # (auto) 0 10 ^3/uL (0-0.2); Basophils % (auto) 0.6 % (0.0-2.0); Eosinophils # (auto) 0.1 10 ^3/uL (0-0.8); Eosinophils % (auto) 2.6 % (0.0-7.0); Hematocrit 26.3 % (36.0-46.0); Hemoglobin 8.9 g/dL (12.2-16.2); Lymphocytes # (auto) 1.3 10 ^3/uL (0.4-5.4); Lymphocytes % (auto) 43.4 % (10.0-50.0); Mean Corpuscular Hemoglobin 32.5 pg (28.0-32.0); Mean Corpuscular Hgb Conc. 33.9 g/dL (32.0-36.0); Monocytes # (auto) 0.4 10 ^3/uL (0-1.3); Monocytes % (auto) 12.6 % (0.0-12.0); Neutrophils # (auto) 1.2 10 ^3/uL (1.6-8.6); Neutrophils % (auto) 40.8 % (37.0-80.0); Nucleated Red Blood Cells % 0.1 %; Red Blood Cells 2.75 10^6/uL (4.0-5.20); Red Cell Distribution Width 15.7 % (11.8-14.3); White Blood Cell 3.1 10^3/uL (4.4-10.8)
[2023-02-24 09:00] VITALS: BP 110/56
[2023-02-24] MEDS ORDERED: ENOXAPARIN SOD 40 MG/0.4 ML SYRINGE SC SCH (10:00)
[2023-02-24] MEDS: PANTOPRAZOLE 40 MG/10 ML VIAL INJ IV SCH (10:37)
[2023-02-24] MEDS ORDERED: cefTRIAXone 1GM/50ML D5W 50 ML IV ONE (11:30)
[2023-02-24] MEDS ORDERED: POTASSIUM CHL 20 Meq TABLET PO ONE (11:30)
[2023-02-24] MEDS: LACTULOSE 20Gm/30ML SOLN PO SCH ×3 (12:40→23:36)
[2023-02-24 13:00] VITALS: BP 102/48
[2023-02-24 16:53] VITALS: BP 104/56
[2023-02-24] MEDS: rifAXIMin 550 MG TAB PO SCH (21:44)
[2023-02-24 22:01] VITALS: BP 110/61
[2023-02-25 02:41] LABS: Urine Amorphous Crystal FEW /hpf (None Seen); Urine Bacteria FEW /hpf (None Seen); Urine Blood 3+ /uL (Negative); Urine Mucus FEW (None Seen); Urine Specific Gravity 1.022 (1.001-1.035); Urine WBC 183 /hpf (0 - 5); Urine WBC Clumps PRESENT /hpf (None Seen)
[2023-02-25 05:00] VITALS: BP 101/51
[2023-02-25] MEDS: LACTULOSE 20Gm/30ML SOLN PO SCH ×3 (05:35→18:10)
[2023-02-25 09:00] VITALS: BP 105/50
[2023-02-25 10:49] LABS: Basophils # (auto) 0 10 ^3/uL (0-0.2); Basophils % (auto) 0.4 % (0.0-2.0); Eosinophils # (auto) 0.1 10 ^3/uL (0-0.8); Eosinophils % (auto) 2.1 % (0.0-7.0); Hemoglobin 8.9 g/dL (12.2-16.2); Lymphocytes # (auto) 1.3 10 ^3/uL (0.4-5.4); Lymphocytes % (auto) 35.3 % (10.0-50.0); Mean Corpuscular Hemoglobin 32.6 pg (28.0-32.0); Mean Corpuscular Hgb Conc. 34.2 g/dL (32.0-36.0); Mean Corpuscular Volume 95.5 fL (80.0-100.0); Monocytes # (auto) 0.5 10 ^3/uL (0-1.3); Monocytes % (auto) 14.1 % (0.0-12.0); Neutrophils # (auto) 1.7 10 ^3/uL (1.6-8.6); Neutrophils % (auto) 48.1 % (37.0-80.0); Red Blood Cells 2.72 10^6/uL (4.0-5.20); Red Cell Distribution Width 15.6 % (11.8-14.3); White Blood Cell 3.6 10^3/uL (4.4-10.8)
[2023-02-25 11:08] LABS: Hepatitis B Surface Antibody Negative (Negative)
[2023-02-25 11:09] LABS: Calcium 8.1 mg/dL (8.5-10.1); Potassium 3.6 mmol/L (3.5-5.1)
[2023-02-25 11:11] LABS: BUN/Creatinine Ratio 15.7 (10.0-20.0)
[2023-02-25] MEDS: rifAXIMin 550 MG TAB PO SCH ×2 (11:22→21:35)
[2023-02-25] MEDS: cefTRIAXone 1GM/50ML D5W 50 ML IV SCH (11:22)
[2023-02-25] MEDS: PANTOPRAZOLE 40 MG/10 ML VIAL INJ IV SCH (11:22)
[2023-02-25 11:47] LABS: Hepatitis A Total Antibody Positive (Negative)
[2023-02-25 13:00] VITALS: BP 105/59
[2023-02-25 14:12] LABS: Hepatitis C Antibody Reactive (Negative)
[2023-02-25] MEDS: HYDROcodone-ACET 5/325MG TAB PO PRN (16:40)
[2023-02-25 17:00] VITALS: BP 104/55
[2023-02-25 22:00] VITALS: BP 110/60
[2023-02-26] MEDS: LACTULOSE 20Gm/30ML SOLN PO SCH ×6 (00:09→23:34)
[2023-02-26] MEDS: HYDROcodone-ACET 5/325MG TAB PO PRN ×2 (05:30→16:51)
[2023-02-26 05:35] VITALS: BP 95/50
[2023-02-26 06:59] LABS: Basophils # (auto) 0 10 ^3/uL (0-0.2); Basophils % (auto) 0.6 % (0.0-2.0); Eosinophils # (auto) 0.1 10 ^3/uL (0-0.8); Eosinophils % (auto) 4.2 % (0.0-7.0); Hematocrit 25.5 % (36.0-46.0); Hemoglobin 8.7 g/dL (12.2-16.2); Lymphocytes # (auto) 1.4 10 ^3/uL (0.4-5.4); Lymphocytes % (auto) 49.6 % (10.0-50.0); Mean Corpuscular Hemoglobin 32.6 pg (28.0-32.0); Monocytes # (auto) 0.4 10 ^3/uL (0-1.3); Monocytes % (auto) 13.6 % (0.0-12.0); Neutrophils # (auto) 0.9 10 ^3/uL (1.6-8.6); Nucleated Red Blood Cells % 0.2 %; Red Blood Cells 2.66 10^6/uL (4.0-5.20); Red Cell Distribution Width 15.2 % (11.8-14.3); White Blood Cell 2.9 10^3/uL (4.4-10.8)
[2023-02-26 07:26] LABS: Albumin 2.3 g/dL (3.4-5.0); BUN/Creatinine Ratio 19.6 (10.0-20.0); Calcium 8.2 mg/dL (8.5-10.1); Potassium 3.6 mmol/L (3.5-5.1)
[2023-02-26 07:29] LABS: Bilirubin, Total 1.2 mg/dL (0.2-1.0); Total Protein 5.3 g/dL (6.4-8.2)
[2023-02-26 09:00] VITALS: BP 114/64
[2023-02-26] MEDS: cefTRIAXone 1GM/50ML D5W 50 ML IV SCH (09:20)
[2023-02-26] MEDS: rifAXIMin 550 MG TAB PO SCH ×2 (09:32→22:34)
[2023-02-26] MEDS: PANTOPRAZOLE 40 MG/10 ML VIAL INJ IV SCH (09:32)
[2023-02-26 13:00] VITALS: BP 109/58
[2023-02-26 16:25] VITALS: BP 106/61
[2023-02-26 20:00] VITALS: BP 105/53
[2023-02-26 22:00] VITALS: BP 105/53
[2023-02-27] MEDS: LACTULOSE 20Gm/30ML SOLN PO SCH ×6 (04:00→23:26)
[2023-02-27 05:00] VITALS: BP 106/48
[2023-02-27] MEDS: HYDROcodone-ACET 5/325MG TAB PO PRN ×2 (05:46→16:59)
[2023-02-27 08:56] VITALS: BP 113/66
[2023-02-27] MEDS: cefTRIAXone 1GM/50ML D5W 50 ML IV SCH (08:57)
[2023-02-27] MEDS: PANTOPRAZOLE 40 MG/10 ML VIAL INJ IV SCH (09:35)
[2023-02-27] MEDS: rifAXIMin 550 MG TAB PO SCH ×2 (09:36→22:06)
[2023-02-27 13:01] VITALS: BP 119/67
[2023-02-27] MEDS ORDERED: ERTAPENEM SOD INJ 1 GM in SODIUM CHL 0.9% 50 ML IV ONE (15:00)
[2023-02-27 16:49] VITALS: BP 107/61
[2023-02-27 20:00] VITALS: BP 111/59
[2023-02-27 22:00] VITALS: BP 111/59
[2023-02-28] MEDS ORDERED: MORPHINE SULFATE INJ 2 MG/ml SYRG IV PRN (02:00)
[2023-02-28] MEDS: LACTULOSE 20Gm/30ML SOLN PO SCH ×6 (04:04→23:54)
[2023-02-28 05:00] VITALS: BP_SYST 114; BP_SYST 133; BP_DIAS 65; BP_DIAS 75
[2023-02-28] MEDS: PANTOPRAZOLE 40 MG/10 ML VIAL INJ IV SCH (09:34)
[2023-02-28] MEDS: rifAXIMin 550 MG TAB PO SCH ×2 (09:34→22:01)
[2023-02-28] MEDS: ERTAPENEM SOD INJ 1 GM in SODIUM CHL 0.9% 50 ML IV SCH (09:53)
[2023-02-28 13:00] VITALS: BP 105/53
[2023-02-28] MEDS: HYDROcodone-ACET 5/325MG TAB PO PRN (13:09)
[2023-02-28] MEDS ORDERED: LACTULOSE 20Gm/30ML SOLN PO ONE (14:15)
[2023-02-28 17:24] VITALS: BP 106/64
[2023-02-28 20:00] VITALS: BP 124/66
[2023-02-28] MEDS: ONDANSETRON HCL 4 MG/2 ML VIAL IV PRN (20:14)
[2023-02-28 22:00] VITALS: BP 124/66
[2023-03-01] MEDS: LACTULOSE 20Gm/30ML SOLN PO SCH ×5 (03:57→19:43)
[2023-03-01] MEDS: HYDROcodone-ACET 5/325MG TAB PO PRN ×2 (04:26→10:25)
[2023-03-01 05:00] VITALS: BP 93/54
[2023-03-01 08:00] VITALS: BP 116/58
[2023-03-01 09:00] VITALS: BP_SYST 116; BP_SYST 125; BP_DIAS 58; BP_DIAS 68
[2023-03-01] MEDS: rifAXIMin 550 MG TAB PO SCH (09:26)
[2023-03-01] MEDS: ERTAPENEM SOD INJ 1 GM in SODIUM CHL 0.9% 50 ML IV SCH (10:12)
[2023-03-01] MEDS: PANTOPRAZOLE 40 MG/10 ML VIAL INJ IV SCH (10:12)
[2023-03-01 13:00] VITALS: BP 107/40
[2023-03-01] MEDS: ONDANSETRON HCL 4 MG/2 ML VIAL IV PRN (13:30)
[2023-03-01 17:00] VITALS: BP 112/62
[2023-03-01 18:09] VITALS: BP 112/62
== END 2023-03-01 21:00 | DRG 442 ==
LOC: EDBD 07:33 → ER 07:33 → OVERFLOW 10:48 → WEST WING 21:27
PROVIDERS: ADMIT Registered Nurse; ATTEND Internal Medicine
PROC: 05HF33Z Insertion of Infusion Device into Left Cephalic Vein, Percutaneous Approach (ICD-10-PCS; principal; 2023-03-01)
PROC: B54NZZA Ultrasonography of Left Upper Extremity Veins, Guidance (ICD-10-PCS; 2023-03-01)
DX: K76.82 Hepatic encephalopathy (principal); D61.818 Other pancytopenia; E44.0 Moderate protein-calorie malnutrition; N39.0 Urinary tract infection, site not specified; Z16.19 Resistance to other specified beta lactam antibiotics; I10 Essential (primary) hypertension; E87.6 Hypokalemia; B19.20 Unspecified viral hepatitis C without hepatic coma; Z20.822 Contact with and (suspected) exposure to COVID-19; G30.9 Alzheimer's disease, unspecified; F02.80 Dementia in other diseases classified elsewhere, unspecified severity, without behavioral disturbance, psychotic disturbance, mood disturbance, and anxiety; K74.60 Unspecified cirrhosis of liver; Z68.29 Body mass index [BMI] 29.0-29.9, adult; Z87.11 Personal history of peptic ulcer disease; Z90.49 Acquired absence of other specified parts of digestive tract
CPT/HCPCS: 36415; 70450; 71045; 71275; 80048; 80053; 80061; 80307; 80320; 81001; 82140; 82962; 83036; 83735; 83880; 84443; 84484; 85025; 85379; 86704; 86706; 86708; 86803; 87081; 87086; 87088; 87186; 87340; 87426; 93005; 93970; 96365; 96366; 96375; 96376; 97110; 97116; 97163; 97530; 99291; C9113; G0378; J0696; J1335; J2405; J3480; Q9967

== ENCOUNTER → 2023-03-22 | Outpatient (CLI) | payer OTHER, MEDICAID ==
[2023-03-22 09:01] LABS: Basophils # (auto) 0 10 ^3/uL (0-0.2); Basophils % (auto) 0.5 % (0.0-2.0); Eosinophils # (auto) 0.1 10 ^3/uL (0-0.8); Eosinophils % (auto) 4.6 % (0.0-7.0); Hemoglobin 8.6 g/dL (12.2-16.2); Lymphocytes # (auto) 1.2 10 ^3/uL (0.4-5.4); Lymphocytes % (auto) 43.3 % (10.0-50.0); Mean Corpuscular Hemoglobin 30.1 pg (28.0-32.0); Mean Corpuscular Hgb Conc. 32.9 g/dL (32.0-36.0); Mean Corpuscular Volume 91.6 fL (80.0-100.0); Monocytes # (auto) 0.3 10 ^3/uL (0-1.3); Monocytes % (auto) 11.6 % (0.0-12.0); Neutrophils # (auto) 1.1 10 ^3/uL (1.6-8.6); Nucleated Red Blood Cells % 0.2 %; Red Blood Cells 2.84 10^6/uL (4.0-5.20); Red Cell Distribution Width 15.2 % (11.8-14.3); White Blood Cell 2.7 10^3/uL (4.4-10.8)
[2023-03-22 10:22] LABS: Potassium 3.9 mmol/L (3.5-5.1)
[2023-03-22 10:53] LABS: Albumin 2.8 g/dL (3.4-5.0); BUN/Creatinine Ratio 18.4 (10.0-20.0); Bilirubin, Total 1.2 mg/dL (0.2-1.0); Calcium 8.8 mg/dL (8.5-10.1)
== END | disposition home or self-care (01) ==
LOC: LAB 08:44
PROVIDERS: ATTEND Internal Medicine
DX: K76.82 Hepatic encephalopathy (principal); K74.60 Unspecified cirrhosis of liver
CPT/HCPCS: 36415; 80053; 82140; 85025

== ENCOUNTER 2023-05-11 09:34 | Day surgery (SDC) | payer OTHER, MEDICAID ==
[2023-05-07 09:20] LABS: Basophils # (auto) 0 10 ^3/uL (0-0.2); Basophils % (auto) 0.6 % (0.0-2.0); Eosinophils # (auto) 0.1 10 ^3/uL (0-0.8); Eosinophils % (auto) 1.7 % (0.0-7.0); Lymphocytes # (auto) 1.5 10 ^3/uL (0.4-5.4); Lymphocytes % (auto) 46.9 % (10.0-50.0); Mean Corpuscular Hemoglobin 28.3 pg (28.0-32.0); Mean Corpuscular Hgb Conc. 33.3 g/dL (32.0-36.0); Monocytes # (auto) 0.4 10 ^3/uL (0-1.3); Monocytes % (auto) 12.3 % (0.0-12.0); Neutrophils # (auto) 1.3 10 ^3/uL (1.6-8.6); Neutrophils % (auto) 38.5 % (37.0-80.0); Red Blood Cells 3.88 10^6/uL (4.0-5.20); Red Cell Distribution Width 18.6 % (11.8-14.3); White Blood Cell 3.3 10^3/uL (4.4-10.8)
[2023-05-07 09:43] LABS: INR 1.3 (0.9-1.15)
[2023-05-07 09:46] LABS: Albumin 3.2 g/dL (3.4-5.0); Calcium 8.8 mg/dL (8.5-10.1); Potassium 3.4 mmol/L (3.5-5.1)
[2023-05-07 09:50] LABS: BUN/Creatinine Ratio 12.3 (10.0-20.0); Total Protein 6.4 g/dL (6.4-8.2)
[~2023-05-11] VITALS: Ht 160 cm; Wt 65.8 kg
[~2023-05-11 09:34] MED LIST changes: -BISA-60 PO; -BISA5TAB65 PO; +FOLI-119 PO; -FOLI1TAB6 PO; -LACT10PA2 PO; +MECL1TAB42 PO; -MIDO5TAB3 PO; +MIDO5TAB4 PO; -NITR-52 PO; +PANT40TA2 PO; -PREG-109; -ZINC220C8 PO
[2023-05-11] MEDS ORDERED: LIDOCAINE VISCOUS 2% 15ML UD ONE (09:41)
[2023-05-11] MEDS: diphenhdrAMINE HCL 50 MG/1 ML VL ONE ×2 (10:44→10:47)
[2023-05-11] MEDS: MIDAZOLAM HCL 5 MG/ML-1ML VIAL ONE ×3 (10:44→10:50)
[2023-05-11] MEDS: fentaNYL CITRATE 100 MCG/2 ML VL ONE ×3 (10:44→10:50)
[2023-05-11 11:33] VITALS: BP 104/58
== END 2023-05-11 11:45 | disposition home or self-care (01) ==
LOC: GI 09:34
PROVIDERS: ATTEND Internal Medicine Gastroenterology
DX: R10.9 Unspecified abdominal pain (principal); G89.29 Other chronic pain; Z98.84 Bariatric surgery status; K25.9 Gastric ulcer, unspecified as acute or chronic, without hemorrhage or perforation; K29.50 Unspecified chronic gastritis without bleeding; Z79.891 Long term (current) use of opiate analgesic; Z90.49 Acquired absence of other specified parts of digestive tract; Z98.890 Other specified postprocedural states
CPT/HCPCS: 36415; 43239; 80053; 85025; 85610; 85730; J1200; J2250; J3010; J7030

== ENCOUNTER → 2023-05-28 | Outpatient (CLI) | payer OTHER, MEDICAID ==
[2023-05-28 11:01] LABS: Basophils # (auto) 0 10 ^3/uL (0-0.2); Basophils % (auto) 0.5 % (0.0-2.0); Eosinophils # (auto) 0.1 10 ^3/uL (0-0.8); Eosinophils % (auto) 2.2 % (0.0-7.0); Hematocrit 33.6 % (36.0-46.0); Hemoglobin 11.1 g/dL (12.2-16.2); Lymphocytes # (auto) 1.5 10 ^3/uL (0.4-5.4); Mean Corpuscular Hgb Conc. 33.1 g/dL (32.0-36.0); Mean Corpuscular Volume 84.7 fL (80.0-100.0); Monocytes # (auto) 0.4 10 ^3/uL (0-1.3); Monocytes % (auto) 11.6 % (0.0-12.0); Neutrophils # (auto) 1.3 10 ^3/uL (1.6-8.6); Neutrophils % (auto) 38.7 % (37.0-80.0); Red Blood Cells 3.96 10^6/uL (4.0-5.20); White Blood Cell 3.2 10^3/uL (4.4-10.8)
[2023-05-28 11:14] LABS: Red Cell Distribution Width 22.4 % (11.8-14.3)
[2023-05-28 11:34] LABS: Albumin 3.1 g/dL (3.4-5.0); Calcium 8.7 mg/dL (8.5-10.1); Potassium 3.8 mmol/L (3.5-5.1)
[2023-05-28 11:38] LABS: BUN/Creatinine Ratio 13.4 (10.0-20.0)
[2023-05-28 11:39] LABS: Bilirubin, Total 1.3 mg/dL (0.2-1.0); Total Protein 6.3 g/dL (6.4-8.2)
== END | disposition home or self-care (01) ==
LOC: LAB 10:40
PROVIDERS: ATTEND Internal Medicine
DX: D72.819 Decreased white blood cell count, unspecified (principal); K76.82 Hepatic encephalopathy; K70.31 Alcoholic cirrhosis of liver with ascites; R60.0 Localized edema
CPT/HCPCS: 36415; 80053; 82140; 84478; 85025

== ENCOUNTER → 2023-10-12 | Outpatient (CLI) | payer OTHER, MEDICAID ==
[2023-10-12 08:25] LABS: Basophils # (auto) 0 10 ^3/uL (0-0.2); Basophils % (auto) 0.5 % (0.0-2.0); Eosinophils # (auto) 0.1 10 ^3/uL (0-0.8); Eosinophils % (auto) 2.7 % (0.0-7.0); Hematocrit 37.2 % (36.0-46.0); Hemoglobin 12.8 g/dL (12.2-16.2); Lymphocytes # (auto) 1.5 10 ^3/uL (0.4-5.4); Lymphocytes % (auto) 47.9 % (10.0-50.0); Mean Corpuscular Hemoglobin 32.2 pg (28.0-32.0); Mean Corpuscular Hgb Conc. 34.3 g/dL (32.0-36.0); Mean Corpuscular Volume 93.9 fL (80.0-100.0); Monocytes # (auto) 0.3 10 ^3/uL (0-1.3); Monocytes % (auto) 9.9 % (0.0-12.0); Neutrophils # (auto) 1.2 10 ^3/uL (1.6-8.6); Red Blood Cells 3.97 10^6/uL (4.0-5.20); Red Cell Distribution Width 15.8 % (11.8-14.3); White Blood Cell 3.2 10^3/uL (4.4-10.8)
[2023-10-12 08:50] LABS: Alanine Aminotransferase 45 U/L (7-40); Albumin 3.8 g/dL (3.2-4.8); Alkaline Phosphatase 92 U/L (46-116); Anion Gap 7 (5-15); Aspartate Aminotransferase 57 U/L (13-40); BUN/Creatinine Ratio 11.8 (10.0-20.0); Bilirubin, Total 1.2 mg/dL (0.2-1.0); Blood Urea Nitrogen 8 mg/dL (9-23); Calcium 9.4 mg/dL (8.5-10.1); Carbon Dioxide 30 mmol/L (20-30); Chloride 104 mmol/L (98-107); Cholesterol 138 mg/dL (< 200); Glucose 126 mg/dL (74-106); HDL Cholesterol 56 mg/dL (40-59); LDL Cholesterol 67 mg/dL (< 100); Potassium 3.4 mmol/L (3.5-5.1); Sodium 141 mmol/L (136-145); Total Protein 6.6 g/dL (5.7-8.2); Triglycerides 29 mg/dL (< 150)
[2023-10-12 08:52] LABS: Urine Bacteria FEW /hpf (None Seen); Urine Blood Negative /uL (Negative); Urine Clarity Clear (Clear); Urine Color Yellow (Yellow); Urine Protein, UAD Negative (Negative); Urine Specific Gravity 1.013 (1.001-1.035); Urine Urobilinogen Normal (Negative); Urine WBC 5 /hpf (0 - 5); Urine pH 6.5 (5.0-8.0)
== END | disposition home or self-care (01) ==
LOC: LAB 07:50
PROVIDERS: ATTEND Internal Medicine
DX: Z12.11 Encounter for screening for malignant neoplasm of colon (principal); Z00.00 Encounter for general adult medical examination without abnormal findings; D50.9 Iron deficiency anemia, unspecified; R60.0 Localized edema; Z79.899 Other long term (current) drug therapy
CPT/HCPCS: 36415; 80053; 80061; 81001; 85025

== ENCOUNTER → 2023-10-15 | Outpatient (CLI) | payer OTHER, MEDICAID ==
[2023-10-15 14:25] LABS: Anion Gap 8 (5-15); Calcium 9.4 mg/dL (8.5-10.1); Carbon Dioxide 30 mmol/L (20-30); Chloride 106 mmol/L (98-107); Potassium 3.6 mmol/L (3.5-5.1); Sodium 144 mmol/L (136-145)
[2023-10-15 14:30] LABS: BUN/Creatinine Ratio 13.9 (10.0-20.0); Blood Urea Nitrogen 11 mg/dL (9-23); Glucose 80 mg/dL (74-106)
== END | disposition home or self-care (01) ==
LOC: LAB 13:49
PROVIDERS: ATTEND Internal Medicine
DX: E87.6 Hypokalemia (principal)
CPT/HCPCS: 36415; 80048; 82270

== ENCOUNTER 2023-11-25 10:46 | Inpatient (IN) | payer OTHER, MEDICAID ==
[~2023-11-25] VITALS: Ht 160 cm; Wt 68.3 kg
[~2023-11-25 10:46] MED LIST changes: -CEPH500C PO; -CYCL-611 PO; -DICY20TA2 PO; -HYDR-3682 PO; -LACT10SO60 PO; -LEV25T PO; -ONDA-155 PO; -POTA-180 PO
[2023-11-25 11:55] LABS: Basophils # (auto) 0 10 ^3/uL (0-0.2); Basophils % (auto) 0.8 % (0.0-2.0); Eosinophils # (auto) 0.1 10 ^3/uL (0-0.8); Eosinophils % (auto) 1.4 % (0.0-7.0); Hematocrit 40.1 % (36.0-46.0); Hemoglobin 13.6 g/dL (12.2-16.2); Lymphocytes # (auto) 2.1 10 ^3/uL (0.4-5.4); Lymphocytes % (auto) 49.4 % (10.0-50.0); Mean Corpuscular Hemoglobin 32.1 pg (28.0-32.0); Mean Corpuscular Hgb Conc. 33.9 g/dL (32.0-36.0); Mean Corpuscular Volume 94.7 fL (80.0-100.0); Monocytes # (auto) 0.4 10 ^3/uL (0-1.3); Monocytes % (auto) 9.1 % (0.0-12.0); Neutrophils # (auto) 1.7 10 ^3/uL (1.6-8.6); Neutrophils % (auto) 39.3 % (37.0-80.0); Nucleated Red Blood Cells % 0.2 %; Red Blood Cells 4.23 10^6/uL (4.0-5.20); Red Cell Distribution Width 15.7 % (11.8-14.3); White Blood Cell 4.3 10^3/uL (4.4-10.8)
[2023-11-25 12:03] LABS: Urine Bacteria FEW /hpf (None Seen); Urine Blood Negative /uL (Negative); Urine Clarity Clear (Clear); Urine Color Yellow (Yellow); Urine Protein, UAD Negative (Negative); Urine Specific Gravity 1.012 (1.001-1.035); Urine Urobilinogen Normal (Negative); Urine WBC 1 /hpf (0 - 5); Urine pH 5.5 (5.0-8.0)
[2023-11-25 12:19] LABS: Alanine Aminotransferase 62 U/L (7-40); Albumin 4.2 g/dL (3.2-4.8); Alkaline Phosphatase 110 U/L (46-116); Anion Gap 6 (5-15); Aspartate Aminotransferase 65 U/L (13-40); BUN/Creatinine Ratio 16.3 (10.0-20.0); Blood Urea Nitrogen 13 mg/dL (9-23); Calcium 9.6 mg/dL (8.5-10.1); Carbon Dioxide 30 mmol/L (20-30); Chloride 105 mmol/L (98-107); Glucose 98 mg/dL (74-106); Potassium 3.6 mmol/L (3.5-5.1); Sodium 141 mmol/L (136-145)
[2023-11-25 12:20] LABS: Bilirubin, Total 1.4 mg/dL (0.2-1.0); Total Protein 6.9 g/dL (5.7-8.2)
[2023-11-25 12:33] LABS: Amphetamine Screen, Urine Neg (NEGATIVE); Barbiturate Scree,Urine Neg (NEGATIVE); Benzodiazephine Screen, Urine Neg (NEGATIVE); Cocaine Screen, Urine Neg (NEGATIVE); Opiate Scree,Urine Neg (NEGATIVE)
[2023-11-25 12:34] LABS: Cannabinoid Screen, Urine Pos (NEGATIVE); Phencyclidine Screen, Urine Neg (NEGATIVE)
[2023-11-25] MEDS ORDERED: LACTULOSE 20Gm/30ML SOLN PO ONE (13:00)
[2023-11-25 13:47] VITALS: PULSE 77; RESP 16
[2023-11-25] MEDS ORDERED: MECLIZINE HCL 25 MG TAB PO PRN (15:45)
[2023-11-25] MEDS ORDERED: MORPHINE SULFATE INJ 2 MG/ml SYRG IV PRN (15:45)
[2023-11-25] MEDS ORDERED: ONDANSETRON HCL 4 MG/2 ML VIAL IV PRN (15:45)
[2023-11-25] MEDS ORDERED: NITROGLYCERIN 0.4 MG SL TAB SL PRN (15:45)
[2023-11-25 18:15] VITALS: PULSE 80; RESP 11; O2SAT 98
[2023-11-25] MEDS: FERROUS SULFATE 325mg EC TAB PO SCH (18:18)
[2023-11-25] MEDS: LACTULOSE 20Gm/30ML SOLN PO SCH ×2 (18:19→22:37)
[2023-11-25] MEDS: DOCUSATE SOD 100 MG CAP PO PRN (18:24)
[2023-11-25 20:19] VITALS: PULSE 91; RESP 18; O2SAT 96
[2023-11-25] MEDS: SODIUM CHLOR 0.9% PF (SALINE LOCK) 10ML VIAL/SYR IV SCH (22:00)
[2023-11-25] MEDS: rifAXIMin 550 MG TAB PO SCH (22:37)
[2023-11-25] MEDS: ASCORBIC ACID 500 MG TAB PO SCH (22:37)
[2023-11-26] VITALS (8 sets, daily range): BP systolic 95–122; BP diastolic 55–71; PULSE 73–85; RESP 14–18; TEMP 97.3–98.3; O2SAT 95–100
[2023-11-26] MEDS ORDERED: ONDA-155 PO (01:58)
[2023-11-26] MEDS ORDERED: LACT10SO60 PO (01:58)
[2023-11-26] MEDS ORDERED: HYDR-3682 PO (01:58)
[2023-11-26] MEDS ORDERED: CYCL-611 PO (01:58)
[2023-11-26] MEDS ORDERED: POTA-180 PO (01:58)
[2023-11-26] MEDS ORDERED: LEV25T PO (01:58)
[2023-11-26] MEDS ORDERED: DICY20TA2 PO (01:58)
[2023-11-26] MEDS: HYDROcodone-ACET 5/325MG TAB PO PRN (05:38)
[2023-11-26] MEDS: SODIUM CHLOR 0.9% PF (SALINE LOCK) 10ML VIAL/SYR IV SCH ×3 (05:44→23:25)
[2023-11-26] MEDS: LACTULOSE 20Gm/30ML SOLN PO SCH ×4 (05:44→23:12)
[2023-11-26 06:59] LABS: Hematocrit 36.5 % (36.0-46.0); Mean Corpuscular Hemoglobin 31.5 pg (28.0-32.0); Mean Corpuscular Hgb Conc. 32.9 g/dL (32.0-36.0); Mean Corpuscular Volume 95.6 fL (80.0-100.0); Red Blood Cells 3.82 10^6/uL (4.0-5.20); Red Cell Distribution Width 15.8 % (11.8-14.3)
[2023-11-26] MEDS ORDERED: cefTRIAXone 1GM/50ML D5W 50 ML IV ONE (07:15)
[2023-11-26 07:33] LABS: Alanine Aminotransferase 58 U/L (7-40); Alkaline Phosphatase 93 U/L (46-116); Anion Gap 10 (5-15); Calcium 8.9 mg/dL (8.7-10.4); Carbon Dioxide 22 mmol/L (20-30); Chloride 109 mmol/L (98-107); Potassium 3.9 mmol/L (3.5-5.1); Sodium 141 mmol/L (136-145)
[2023-11-26 07:34] LABS: Aspartate Aminotransferase 72 U/L (13-40); BUN/Creatinine Ratio 10.3 (10.0-20.0); Blood Urea Nitrogen 8 mg/dL (9-23); Glucose 90 mg/dL (74-106)
[2023-11-26 07:36] LABS: Albumin 3.6 g/dL (3.2-4.8); Total Protein 6.2 g/dL (5.7-8.2)
[2023-11-26 07:56] LABS: Band Neutrophils % (manual) 0; Basophils % (manual) 0 (0.0-2.0); Blast Cells 0; Metamyelocytes % 0; Myelocytes % 0; Promyelocytes % 0; Reactive Lymphocytes 0
[2023-11-26 08:32] LABS: Eosinophils % (manual) 2 (0-7); Lymphocytes % (manual) 62 (10.0-50.0); Monocytes % (manual) 8 (0-12); Platelet Estimate Decreased
[2023-11-26] MEDS: CHOLECALCIFEROL (VITD3) 2,000 UNIT CAP/TAB PO SCH (09:02)
[2023-11-26] MEDS: ZINC SULFATE 220mg CAP or TAB PO SCH (09:02)
[2023-11-26] MEDS: PANTOPRAZOLE 40 MG TAB PO SCH (09:02)
[2023-11-26] MEDS: SPIRONOLACTONE 25 MG TAB PO SCH (09:02)
[2023-11-26] MEDS: DOCUSATE SOD 100 MG CAP PO PRN (09:02)
[2023-11-26] MEDS: FERROUS SULFATE 325mg EC TAB PO SCH ×2 (09:03→17:11)
[2023-11-26] MEDS: ASCORBIC ACID 500 MG TAB PO SCH ×2 (09:03→23:12)
[2023-11-26] MEDS: FUROSEMIDE 40 MG TAB PO SCH (09:03)
[2023-11-26] MEDS: ESCITALOPRAM OXALATE 10 MG PO SCH (09:04)
[2023-11-26] MEDS: FOLIC ACID 0.8 MG PO SCH (09:04)
[2023-11-26] MEDS: rifAXIMin 550 MG TAB PO SCH ×2 (09:29→23:12)
[2023-11-26] MEDS ORDERED: CYCLOBENZAPRINE HCL 10 MG TAB PO PRN ×2 (21:15→23:30)
[2023-11-27 05:00] VITALS: BP 92/56; PULSE 67; RESP 17; TEMP 97.6; O2SAT 94
[2023-11-27] MEDS: LACTULOSE 20Gm/30ML SOLN PO SCH ×2 (05:23→12:57)
[2023-11-27] MEDS: SODIUM CHLOR 0.9% PF (SALINE LOCK) 10ML VIAL/SYR IV SCH ×2 (05:29→14:26)
[2023-11-27 06:28] LABS: Alanine Aminotransferase 57 U/L (7-40); Albumin 3.4 g/dL (3.2-4.8); Alkaline Phosphatase 95 U/L (46-116); Anion Gap 6 (5-15); Aspartate Aminotransferase 63 U/L (13-40); BUN/Creatinine Ratio 20.3 (10.0-20.0); Blood Urea Nitrogen 14 mg/dL (9-23); Calcium 8.7 mg/dL (8.7-10.4); Carbon Dioxide 29 mmol/L (20-30); Chloride 108 mmol/L (98-107); Glucose 98 mg/dL (74-106); Potassium 4.2 mmol/L (3.5-5.1); Sodium 143 mmol/L (136-145)
[2023-11-27 06:29] LABS: Total Protein 5.6 g/dL (5.7-8.2)
[2023-11-27 06:36] LABS: Basophils # (auto) 0 10 ^3/uL (0-0.2); Basophils % (auto) 0.6 % (0.0-2.0); Eosinophils # (auto) 0.1 10 ^3/uL (0-0.8); Eosinophils % (auto) 3.7 % (0.0-7.0); Hematocrit 35.3 % (36.0-46.0); Hemoglobin 11.9 g/dL (12.2-16.2); Lymphocytes # (auto) 1.9 10 ^3/uL (0.4-5.4); Lymphocytes % (auto) 51.8 % (10.0-50.0); Mean Corpuscular Hemoglobin 32.1 pg (28.0-32.0); Mean Corpuscular Hgb Conc. 33.9 g/dL (32.0-36.0); Mean Corpuscular Volume 94.9 fL (80.0-100.0); Monocytes # (auto) 0.5 10 ^3/uL (0-1.3); Monocytes % (auto) 13.5 % (0.0-12.0); Neutrophils # (auto) 1.1 10 ^3/uL (1.6-8.6); Neutrophils % (auto) 30.4 % (37.0-80.0); Red Blood Cells 3.72 10^6/uL (4.0-5.20); Red Cell Distribution Width 15.6 % (11.8-14.3); White Blood Cell 3.6 10^3/uL (4.4-10.8)
[2023-11-27 08:00] VITALS: PULSE 75; RESP 17; O2SAT 98
[2023-11-27 09:00] VITALS: BP 116/92; PULSE 75; RESP 17; TEMP 98.2; O2SAT 98
[2023-11-27] MEDS ORDERED: cefTRIAXone 1GM/50ML D5W 50 ML IV SCH (09:00)
[2023-11-27] MEDS: FOLIC ACID 0.8 MG PO SCH (10:00)
[2023-11-27] MEDS: SPIRONOLACTONE 25 MG TAB PO SCH (10:00)
[2023-11-27] MEDS: ESCITALOPRAM OXALATE 10 MG PO SCH (10:00)
[2023-11-27] MEDS: rifAXIMin 550 MG TAB PO SCH (10:12)
[2023-11-27] MEDS: ASCORBIC ACID 500 MG TAB PO SCH (10:12)
[2023-11-27] MEDS: FERROUS SULFATE 325mg EC TAB PO SCH (10:12)
[2023-11-27] MEDS: PANTOPRAZOLE 40 MG TAB PO SCH (10:13)
[2023-11-27] MEDS: ZINC SULFATE 220mg CAP or TAB PO SCH (10:13)
[2023-11-27] MEDS: CHOLECALCIFEROL (VITD3) 2,000 UNIT CAP/TAB PO SCH (10:14)
[2023-11-27] MEDS: FUROSEMIDE 40 MG TAB PO SCH (10:14)
[2023-11-27] MEDS: DOCUSATE SOD 100 MG CAP PO PRN (10:46)
[2023-11-27] MEDS: HYDROcodone-ACET 5/325MG TAB PO PRN (11:26)
[2023-11-27 13:00] VITALS: BP 102/63; PULSE 72; RESP 15; TEMP 98.8; O2SAT 98
[2023-11-27] MEDS ORDERED: CEPH500C PO (16:27)
[2023-11-27 17:00] VITALS: BP 106/57; PULSE 71; RESP 17; TEMP 98.9; O2SAT 97
[2023-11-27 17:08] VITALS: BP 116/92; TEMP 37.1
== END 2023-11-27 18:15 | disposition home or self-care (01) | DRG 872 ==
LOC: ER 10:46 → TELE 15:43 → TELE-EAST 23:34 → TELE-WESTW 11-27 06:39
PROVIDERS: ADMIT Nurse Practitioner Family; ATTEND Internal Medicine
DX: A41.9 Sepsis, unspecified organism (principal); D61.818 Other pancytopenia; K76.6 Portal hypertension; N39.0 Urinary tract infection, site not specified; K74.60 Unspecified cirrhosis of liver; K76.82 Hepatic encephalopathy; E03.9 Hypothyroidism, unspecified; F32.A Depression, unspecified; K64.8 Other hemorrhoids; Z98.84 Bariatric surgery status
CPT/HCPCS: 36415; 70450; 71045; 80053; 80307; 81001; 82140; 83605; 83735; 84484; 85007; 85025; 85027; 87086; G0378; J2405

== ENCOUNTER → 2023-11-25 | Outpatient (CLI) | payer OTHER, MEDICAID ==
[~2023-11-25] MED LIST changes: +CEPH500C PO; +CYCL-611 PO; +DICY20TA2 PO; +HYDR-3682 PO; +LACT10SO60 PO; +LEV25T PO; +ONDA-155 PO; +POTA-180 PO
== END | disposition home or self-care (01) ==
LOC: LAB 08:58
PROVIDERS: ATTEND Internal Medicine
DX: K70.30 Alcoholic cirrhosis of liver without ascites (principal); D69.6 Thrombocytopenia, unspecified
CPT/HCPCS: 82140

== ENCOUNTER → 2023-12-16 | Outpatient (CLI) | payer OTHER, MEDICAID ==
[~2023-12-16] MED LIST changes: +CEPH500C PO; +CYCL-611 PO; -CYPR4TAB50 PO; -DICY10CA PO; +DICY20TA2 PO; -ESCI10TA PO; +HYDR-3682 PO; +LACT10SO60 PO; -LACT10SO70 PO; +LEV25T PO; -MIDO5TAB4 PO; +ONDA-155 PO; +POTA-180 PO; -POTA10TA51 PO
[2023-12-16 09:01] LABS: Basophils # (auto) 0 10 ^3/uL (0-0.2); Basophils % (auto) 0.5 % (0.0-2.0); Eosinophils # (auto) 0.1 10 ^3/uL (0-0.8); Eosinophils % (auto) 2.2 % (0.0-7.0); Hematocrit 39.4 % (36.0-46.0); Hemoglobin 13.1 g/dL (12.2-16.2); Lymphocytes # (auto) 1.5 10 ^3/uL (0.4-5.4); Lymphocytes % (auto) 42.5 % (10.0-50.0); Mean Corpuscular Hemoglobin 31.4 pg (28.0-32.0); Mean Corpuscular Hgb Conc. 33.3 g/dL (32.0-36.0); Mean Corpuscular Volume 94.5 fL (80.0-100.0); Monocytes # (auto) 0.4 10 ^3/uL (0-1.3); Monocytes % (auto) 10.5 % (0.0-12.0); Neutrophils # (auto) 1.5 10 ^3/uL (1.6-8.6); Neutrophils % (auto) 44.3 % (37.0-80.0); Nucleated Red Blood Cells % 0.1 %; Red Blood Cells 4.17 10^6/uL (4.0-5.20); Red Cell Distribution Width 15.9 % (11.8-14.3); White Blood Cell 3.5 10^3/uL (4.4-10.8)
== END | disposition home or self-care (01) ==
LOC: LAB 08:41
PROVIDERS: ATTEND Internal Medicine
DX: K76.82 Hepatic encephalopathy (principal)
CPT/HCPCS: 36415; 82140; 85025

== ENCOUNTER → 2023-12-21 | Outpatient (CLI) | payer OTHER, MEDICAID | END | disposition home or self-care (01) | LOC: LAB 15:00 | PROVIDERS: ATTEND Internal Medicine | DX: R79.89 Other specified abnormal findings of blood chemistry (principal) | CPT/HCPCS: 82140 ==

== ENCOUNTER → 2024-01-03 | Outpatient (CLI) | payer OTHER, MEDICAID ==
[2024-01-03 13:01] LABS: Urine Bacteria NONE SEEN /hpf (None Seen); Urine Blood Negative /uL (Negative); Urine Clarity Clear (Clear); Urine Color Yellow (Yellow); Urine Hyaline Cast FEW /lpf (0 - 2); Urine Mucus FEW (None Seen); Urine Protein, UAD Negative (Negative); Urine Urobilinogen Normal (Negative); Urine WBC 1 /hpf (0 - 5); Urine pH 5.5 (5.0-8.0)
== END | disposition home or self-care (01) ==
LOC: LAB 09:02
PROVIDERS: ATTEND Internal Medicine
DX: K70.30 Alcoholic cirrhosis of liver without ascites (principal)
CPT/HCPCS: 81001; 82140

== ENCOUNTER → 2024-01-06 | Outpatient (CLI) | payer OTHER, MEDICAID ==
[2024-01-06 09:05] LABS: Urine Bacteria NONE SEEN /hpf (None Seen); Urine Blood Negative /uL (Negative); Urine Clarity Clear (Clear); Urine Hyaline Cast FEW /lpf (0 - 2); Urine Protein, UAD Negative (Negative); Urine Specific Gravity 1.008 (1.001-1.035); Urine Urobilinogen Normal (Negative); Urine WBC 1 /hpf (0 - 5)
[2024-01-06 09:18] LABS: Anion Gap 6 (5-15); Carbon Dioxide 30 mmol/L (20-30); Chloride 106 mmol/L (98-107); Potassium 4.1 mmol/L (3.5-5.1); Sodium 142 mmol/L (136-145)
[2024-01-06 09:19] LABS: Calcium 9.5 mg/dL (8.5-10.1)
[2024-01-06 09:22] LABS: Urine Color Yellow (Yellow)
[2024-01-06 09:24] LABS: BUN/Creatinine Ratio 10.5 (10.0-20.0); Blood Urea Nitrogen 9 mg/dL (9-23); Glucose 146 mg/dL (74-106)
[2024-01-06 09:38] LABS: Magnesium 1.9 mg/dL (1.6-2.6)
== END | disposition home or self-care (01) ==
LOC: LAB 08:29
PROVIDERS: ATTEND Internal Medicine
DX: D61.818 Other pancytopenia (principal); K74.60 Unspecified cirrhosis of liver; Z79.899 Other long term (current) drug therapy
CPT/HCPCS: 36415; 80048; 81001; 82140; 83735

== ENCOUNTER → 2024-03-16 | Outpatient (CLI) | payer OTHER, MEDICAID ==
[~2024-03-16] MED LIST changes: +ESCI1TAB36 PO; +ONDA-180; +ZINC100T2 PO
== END | disposition home or self-care (01) ==
LOC: LAB 15:11
PROVIDERS: ATTEND Internal Medicine
DX: K74.60 Unspecified cirrhosis of liver (principal)
CPT/HCPCS: 82140

== ENCOUNTER 2024-03-20 13:06 | Inpatient (IN) | payer OTHER, MEDICAID ==
[~2024-03-20] VITALS: Ht 160 cm; Wt 70.0 kg
[~2024-03-20 13:06] MED LIST changes: -ESCI1TAB36 PO; -ONDA-180; -ZINC100T2 PO
[2024-03-20 14:15] LABS: Basophils # (auto) 0 10 ^3/uL (0-0.2); Basophils % (auto) 0.4 % (0.0-2.0); Eosinophils # (auto) 0.1 10 ^3/uL (0-0.8); Eosinophils % (auto) 1.9 % (0.0-7.0); Hematocrit 40.5 % (36.0-46.0); Hemoglobin 13.7 g/dL (12.2-16.2); Lymphocytes # (auto) 2.3 10 ^3/uL (0.4-5.4); Lymphocytes % (auto) 42.9 % (10.0-50.0); Mean Corpuscular Hemoglobin 31.7 pg (28.0-32.0); Mean Corpuscular Hgb Conc. 33.8 g/dL (32.0-36.0); Mean Corpuscular Volume 93.8 fL (80.0-100.0); Monocytes # (auto) 0.5 10 ^3/uL (0-1.3); Monocytes % (auto) 8.3 % (0.0-12.0); Neutrophils # (auto) 2.5 10 ^3/uL (1.6-8.6); Neutrophils % (auto) 46.5 % (37.0-80.0); Nucleated Red Blood Cells % 0.1 %; Red Blood Cells 4.31 10^6/uL (4.0-5.20); Red Cell Distribution Width 15.5 % (11.8-14.3); White Blood Cell 5.4 10^3/uL (4.4-10.8)
[2024-03-20 14:34] LABS: Alanine Aminotransferase 58 U/L (7-40); Albumin 4.4 g/dL (3.2-4.8); Alkaline Phosphatase 119 U/L (46-116); Anion Gap 6 (5-15); Aspartate Aminotransferase 60 U/L (13-40); Blood Urea Nitrogen 13 mg/dL (9-23); Calcium 10.3 mg/dL (8.7-10.4); Carbon Dioxide 28 mmol/L (20-30); Chloride 107 mmol/L (98-107); Glucose 123 mg/dL (74-106); Potassium 4.1 mmol/L (3.5-5.1); Sodium 141 mmol/L (136-145)
[2024-03-20] MEDS: FERROUS SULFATE 325mg EC TAB PO SCH (18:41)
[2024-03-20] MEDS: HYDROcodone-ACET 5/325MG TAB PO PRN (18:42)
[2024-03-20] MEDS: SODIUM CHLORIDE 0.9% 1,000 ML IV SCH (19:19)
[2024-03-20] MEDS: LACTULOSE 20Gm/30ML SOLN PO ONE (19:24)
[2024-03-20] MEDS: LACTULOSE 20Gm/30ML SOLN PO SCH (19:27)
[2024-03-20 22:49] VITALS: RESP 18; O2SAT 92
[2024-03-20] MEDS: CYCLOBENZAPRINE HCL 10 MG TAB PO SCH (23:12)
[2024-03-20] MEDS: rifAXIMin 550 MG TAB PO SCH (23:12)
[2024-03-20] MEDS: ASCORBIC ACID 500 MG TAB PO SCH (23:13)
[2024-03-20] MEDS: hydrOXYzine 25 MG TAB or CAP PO PRN (23:21)
[2024-03-21] VITALS (8 sets, daily range): BP systolic 87–110; BP diastolic 46–58; PULSE 71–79; RESP 16–18; TEMP 97.9–98.8; O2SAT 92–97
[2024-03-21] MEDS ORDERED: CHOL20007 PO (00:31)
[2024-03-21] MEDS ORDERED: ZINC100T2 PO (00:31)
[2024-03-21] MEDS ORDERED: ESCI1TAB36 PO (00:31)
[2024-03-21] MEDS ORDERED: ONDA-180 (00:31)
[2024-03-21] MEDS ORDERED: SPIR25TA8 PO (00:31)
[2024-03-21] MEDS: LEVOTHYROXINE SODIUM 25 MCG TAB PO SCH (06:10)
[2024-03-21 06:15] LABS: Basophils # (auto) 0 10 ^3/uL (0-0.2); Basophils % (auto) 0.4 % (0.0-2.0); Eosinophils # (auto) 0.2 10 ^3/uL (0-0.8); Eosinophils % (auto) 3.9 % (0.0-7.0); Hematocrit 34.1 % (36.0-46.0); Hemoglobin 11.7 g/dL (12.2-16.2); Lymphocytes # (auto) 2.5 10 ^3/uL (0.4-5.4); Mean Corpuscular Hemoglobin 31.8 pg (28.0-32.0); Mean Corpuscular Hgb Conc. 34.2 g/dL (32.0-36.0); Mean Corpuscular Volume 92.8 fL (80.0-100.0); Monocytes # (auto) 0.6 10 ^3/uL (0-1.3); Neutrophils # (auto) 1.2 10 ^3/uL (1.6-8.6); Neutrophils % (auto) 26.7 % (37.0-80.0); Nucleated Red Blood Cells % 0.1 %; Red Blood Cells 3.68 10^6/uL (4.0-5.20); Red Cell Distribution Width 15.6 % (11.8-14.3); White Blood Cell 4.6 10^3/uL (4.4-10.8)
[2024-03-21 06:38] LABS: Alanine Aminotransferase 51 U/L (7-40); Albumin 3.5 g/dL (3.2-4.8); Alkaline Phosphatase 99 U/L (46-116); Anion Gap 9 (5-15); Aspartate Aminotransferase 61 U/L (13-40); BUN/Creatinine Ratio 15.8 (10.0-20.0); Blood Urea Nitrogen 12 mg/dL (9-23); Calcium 9.3 mg/dL (8.5-10.1); Carbon Dioxide 24 mmol/L (20-30); Chloride 109 mmol/L (98-107); Glucose 90 mg/dL (74-106); Potassium 3.6 mmol/L (3.5-5.1); Sodium 142 mmol/L (136-145)
[2024-03-21 06:39] LABS: Bilirubin, Total 0.7 mg/dL (0.2-1.0); Total Protein 5.9 g/dL (5.7-8.2)
[2024-03-21] MEDS: FUROSEMIDE 40 MG TAB PO SCH (08:31)
[2024-03-21] MEDS: ZINC SULFATE 220mg CAP or TAB PO SCH (08:32)
[2024-03-21] MEDS: FOLIC ACID 1 MG TAB PO SCH (08:33)
[2024-03-21] MEDS: SPIRONOLACTONE 25 MG TAB PO SCH (08:33)
[2024-03-21] MEDS: PANTOPRAZOLE 40 MG TAB PO SCH (08:33)
[2024-03-21] MEDS: ENOXAPARIN SOD 40 MG/0.4 ML SYRINGE SC SCH (08:34)
[2024-03-21] MEDS: CHOLECALCIFEROL (VITD3) 1,000UNIT=25mCg TAB PO SCH (12:54)
[2024-03-21 18:40] LABS: Urine Bacteria None Seen /hpf (None Seen)
[2024-03-21 19:22] LABS: Urine Blood Negative /uL (Negative); Urine Clarity Clear (Clear); Urine Color Yellow (Yellow); Urine Mucus FEW (None Seen); Urine Protein, UAD Negative (Negative); Urine Urobilinogen Normal (Negative); Urine WBC 1 /hpf (0 - 5)
[2024-03-21] MEDS: ONDANSETRON ODT 4 MG TAB PO PRN (23:49)
[2024-03-22 01:00] VITALS: BP 90/48; PULSE 68; RESP 17; TEMP 97.7; O2SAT 95
[2024-03-22 05:00] VITALS: BP 85/46; PULSE 61; RESP 18; TEMP 97.7; O2SAT 94
[2024-03-22 07:29] LABS: Alanine Aminotransferase 54 U/L (7-40); Albumin 3.4 g/dL (3.2-4.8); Alkaline Phosphatase 100 U/L (46-116); Anion Gap 6 (5-15); Aspartate Aminotransferase 59 U/L (13-40); BUN/Creatinine Ratio 16.4 (10.0-20.0); Blood Urea Nitrogen 11 mg/dL (9-23); Calcium 9.3 mg/dL (8.5-10.1); Carbon Dioxide 26 mmol/L (20-30); Chloride 109 mmol/L (98-107); Glucose 84 mg/dL (74-106); Sodium 141 mmol/L (136-145)
[2024-03-22 07:30] LABS: Bilirubin, Total 0.9 mg/dL (0.2-1.0); Total Protein 5.9 g/dL (5.7-8.2)
[2024-03-22 08:00] VITALS: PULSE 69; RESP 17; O2SAT 96
[2024-03-22 09:00] VITALS: BP 95/54; PULSE 69; RESP 17; TEMP 98; O2SAT 96
[2024-03-22] MEDS ORDERED: RIFA550T PO (12:04)
[2024-03-22 13:00] VITALS: BP 102/55; PULSE 74; RESP 18; TEMP 98.3; O2SAT 97
[2024-03-22 15:35] VITALS: BP 90/58; PULSE 69; TEMP 98; O2SAT 95
== END 2024-03-22 16:08 | disposition home or self-care (01) | DRG 442 ==
LOC: ER 13:06 → OVERFLOW 16:47 → CENTRAL 23:05
PROVIDERS: ADMIT Nurse Practitioner Acute Care; ATTEND Nurse Practitioner Acute Care
DX: K76.82 Hepatic encephalopathy (principal); E72.20 Disorder of urea cycle metabolism, unspecified; K76.6 Portal hypertension; K21.9 Gastro-esophageal reflux disease without esophagitis; E03.9 Hypothyroidism, unspecified; D63.8 Anemia in other chronic diseases classified elsewhere; D69.6 Thrombocytopenia, unspecified; K74.60 Unspecified cirrhosis of liver; Z90.49 Acquired absence of other specified parts of digestive tract; Z79.899 Other long term (current) drug therapy
CPT/HCPCS: 36415; 80053; 81001; 82140; 84443; 84484; 85025; G0378; Q0162

== ENCOUNTER 2024-04-24 13:13 | Inpatient (IN) | payer OTHER, MEDICAID ==
[~2024-04-24] VITALS: Ht 160 cm; Wt 62.2 kg
[2024-04-24 15:19] LABS: Basophils # (auto) 0 10 ^3/uL (0-0.2); Basophils % (auto) 0.5 % (0.0-2.0); Eosinophils # (auto) 0.1 10 ^3/uL (0-0.8); Hematocrit 36.4 % (36.0-46.0); Hemoglobin 12.5 g/dL (12.2-16.2); Lymphocytes # (auto) 2.1 10 ^3/uL (0.4-5.4); Mean Corpuscular Hemoglobin 32.3 pg (28.0-32.0); Mean Corpuscular Hgb Conc. 34.5 g/dL (32.0-36.0); Mean Corpuscular Volume 93.5 fL (80.0-100.0); Monocytes # (auto) 0.4 10 ^3/uL (0-1.3); Monocytes % (auto) 8.6 % (0.0-12.0); Neutrophils # (auto) 1.8 10 ^3/uL (1.6-8.6); Neutrophils % (auto) 40.9 % (37.0-80.0); Nucleated Red Blood Cells % 0.1 %; Red Blood Cells 3.89 10^6/uL (4.0-5.20); Red Cell Distribution Width 14.9 % (11.8-14.3); White Blood Cell 4.5 10^3/uL (4.4-10.8)
[2024-04-24 15:21] LABS: Alanine Aminotransferase 41 U/L (7-40); Albumin 3.8 g/dL (3.2-4.8); Alkaline Phosphatase 108 U/L (46-116); Anion Gap 7 (5-15); Aspartate Aminotransferase 44 U/L (13-40); BUN/Creatinine Ratio 18.5 (10.0-20.0); Blood Urea Nitrogen 15 mg/dL (9-23); Calcium 9.6 mg/dL (8.7-10.4); Carbon Dioxide 30 mmol/L (20-30); Chloride 108 mmol/L (98-107); Glucose 94 mg/dL (74-106); Sodium 145 mmol/L (136-145)
[2024-04-24 15:22] LABS: Total Protein 6.4 g/dL (5.7-8.2)
[2024-04-24] MEDS ORDERED: MORPHINE SULFATE INJ 2 MG/ml SYRG IV PRN (16:30)
[2024-04-24] MEDS ORDERED: NITROGLYCERIN 0.4 MG SL TAB SL PRN (16:30)
[2024-04-24] MEDS ORDERED: DOCUSATE SOD 100 MG CAP PO PRN ×2 (16:30→16:45)
[2024-04-24] MEDS: LACTULOSE 20Gm/30ML SOLN PO SCH (16:49)
[2024-04-24] MEDS: FUROSEMIDE 40 MG/4 ML VIAL IV ONE (16:58)
[2024-04-24] MEDS: MORPHINE SULFATE INJ 2 MG/ml SYRG IV PRN (17:04)
[2024-04-24] MEDS: ONDANSETRON HCL 4 MG/2 ML VIAL IV PRN (17:04)
[2024-04-24] MEDS: FERROUS SULFATE 325mg EC TAB PO SCH (19:33)
[2024-04-24] MEDS: rifAXIMin 550 MG TAB PO SCH (23:48)
[2024-04-24] MEDS: SPIRONOLACTONE 25 MG TAB PO SCH (23:48)
[2024-04-24] MEDS: ASCORBIC ACID 500 MG TAB PO SCH (23:49)
[2024-04-25 06:59] LABS: Basophils # (auto) 0 10 ^3/uL (0-0.2); Basophils % (auto) 0.2 % (0.0-2.0); Eosinophils # (auto) 0.1 10 ^3/uL (0-0.8); Eosinophils % (auto) 2.9 % (0.0-7.0); Hematocrit 38.3 % (36.0-46.0); Lymphocytes # (auto) 1.9 10 ^3/uL (0.4-5.4); Lymphocytes % (auto) 50.2 % (10.0-50.0); Mean Corpuscular Hemoglobin 31.7 pg (28.0-32.0); Mean Corpuscular Hgb Conc. 33.9 g/dL (32.0-36.0); Mean Corpuscular Volume 93.4 fL (80.0-100.0); Monocytes # (auto) 0.5 10 ^3/uL (0-1.3); Monocytes % (auto) 12.6 % (0.0-12.0); Neutrophils # (auto) 1.3 10 ^3/uL (1.6-8.6); Neutrophils % (auto) 34.1 % (37.0-80.0); Nucleated Red Blood Cells % 0.2 %; White Blood Cell 3.7 10^3/uL (4.4-10.8)
[2024-04-25 07:27] LABS: Alanine Aminotransferase 49 U/L (7-40); Albumin 4.1 g/dL (3.2-4.8); Alkaline Phosphatase 107 U/L (46-116); Anion Gap 9 (5-15); Aspartate Aminotransferase 60 U/L (13-40); Blood Urea Nitrogen 13 mg/dL (9-23); Carbon Dioxide 29 mmol/L (20-30); Chloride 110 mmol/L (98-107); Glucose 83 mg/dL (74-106); Potassium 3.4 mmol/L (3.5-5.1); Sodium 148 mmol/L (136-145)
[2024-04-25] MEDS: ZINC 100 MG PO SCH (10:00)
[2024-04-25] MEDS ORDERED: CHOLECALCIFEROL (VITD3) 1,000UNIT=25mCg TAB PO SCH (10:00)
[2024-04-25] MEDS: FOLIC ACID 0.8 MG PO SCH (10:00)
[2024-04-25] MEDS: Escitalopram Oxalate 10MG TABLETS PO SCH (10:00)
[2024-04-25 10:25] VITALS: PULSE 86; RESP 18; O2SAT 96
[2024-04-25] MEDS: POTASSIUM CHL 20 Meq TABLET PO ONE (10:42)
[2024-04-25] MEDS: PANTOPRAZOLE 40 MG TAB PO SCH (10:43)
[2024-04-25] MEDS: LEVOTHYROXINE SODIUM 25 MCG TAB PO SCH (10:43)
[2024-04-25 12:21] VITALS: BP 103/52; PULSE 71; RESP 20; TEMP 97.5; O2SAT 97
[2024-04-25 14:03] LABS: Alanine Aminotransferase 40 U/L (7-40); Albumin 3.5 g/dL (3.2-4.8); Alkaline Phosphatase 98 U/L (46-116); Anion Gap 3 (5-15); Aspartate Aminotransferase 48 U/L (13-40); BUN/Creatinine Ratio 15.9 (10.0-20.0); Bilirubin, Total 0.9 mg/dL (0.2-1.0); Blood Urea Nitrogen 10 mg/dL (9-23); Calcium 9.3 mg/dL (8.5-10.1); Carbon Dioxide 29 mmol/L (20-30); Chloride 111 mmol/L (98-107); Glucose 86 mg/dL (74-106); Potassium 3.7 mmol/L (3.5-5.1); Sodium 143 mmol/L (136-145); Total Protein 5.9 g/dL (5.7-8.2)
[2024-04-25 15:26] VITALS: TEMP 36.4
[2024-04-25] MEDS ORDERED: LACTULOSE 20Gm/30ML SOLN PO SCH (22:00)
[2024-04-26] MEDS ORDERED: POTASSIUM CHL 20 Meq TABLET PO SCH (10:00)
== END 2024-04-25 16:20 | disposition home or self-care (01) | DRG 434 ==
LOC: ER 13:13 → OVERFLOW 16:25 → EAST 04-25 08:46
PROVIDERS: ADMIT Internal Medicine; ATTEND Internal Medicine
DX: K70.30 Alcoholic cirrhosis of liver without ascites (principal); G89.29 Other chronic pain; Z90.49 Acquired absence of other specified parts of digestive tract; Z98.84 Bariatric surgery status
CPT/HCPCS: 36415; 80053; 82140; 85025; G0378; J2405

== ENCOUNTER → 2024-04-24 | Outpatient (CLI) | payer OTHER, MEDICAID ==
[~2024-04-24] MED LIST changes: -CEPH500C PO; -DICY20TA2 PO; +ESCI1TAB36 PO; -ONDA-155 PO; +ONDA-180; +ZINC100T2 PO; -ZINC220C10 PO
[2024-04-24 09:57] LABS: Alanine Aminotransferase 37 U/L (7-40); Albumin 3.9 g/dL (3.2-4.8); Alkaline Phosphatase 108 U/L (46-116); Anion Gap 6 (5-15); Aspartate Aminotransferase 41 U/L (13-40); BUN/Creatinine Ratio 14.6 (10.0-20.0); Blood Urea Nitrogen 12 mg/dL (9-23); Calcium 9.6 mg/dL (8.5-10.1); Carbon Dioxide 29 mmol/L (20-30); Chloride 109 mmol/L (98-107); Glucose 130 mg/dL (74-106); Potassium 3.7 mmol/L (3.5-5.1); Sodium 144 mmol/L (136-145)
[2024-04-24 09:58] LABS: Bilirubin, Total 0.7 mg/dL (0.2-1.0); Total Protein 6.5 g/dL (5.7-8.2)
== END | disposition home or self-care (01) ==
LOC: LAB 08:57
PROVIDERS: ATTEND Internal Medicine
DX: K74.60 Unspecified cirrhosis of liver (principal)
CPT/HCPCS: 36415; 80053; 82140

== ENCOUNTER → 2024-05-15 | Outpatient (CLI) | payer OTHER, MEDICAID ==
[2024-05-15 09:53] LABS: Bilirubin, Direct 0.3 mg/dL (<0.3); Bilirubin, Total 0.9 mg/dL (0.2-1.0); Total Protein 6.6 g/dL (5.7-8.2)
== END | disposition home or self-care (01) ==
LOC: LAB 08:47
PROVIDERS: ATTEND Internal Medicine
DX: K74.60 Unspecified cirrhosis of liver (principal); K76.82 Hepatic encephalopathy
CPT/HCPCS: 36415; 80076; 82140

== ENCOUNTER 2024-05-22 11:21 | Inpatient (IN) | payer OTHER, MEDICAID ==
[~2024-05-22] VITALS: Ht 160 cm; Wt 69.6 kg
[2024-05-22] MEDS: LACTULOSE 20Gm/30ML SOLN PO ONE (12:11)
[2024-05-22 12:12] LABS: Basophils # (auto) 0 10 ^3/uL (0-0.2); Basophils % (auto) 0.6 % (0.0-2.0); Eosinophils # (auto) 0.1 10 ^3/uL (0-0.8); Eosinophils % (auto) 3.1 % (0.0-7.0); Hematocrit 36.9 % (36.0-46.0); Hemoglobin 12.6 g/dL (12.2-16.2); Mean Corpuscular Hgb Conc. 34.2 g/dL (32.0-36.0); Mean Corpuscular Volume 93.6 fL (80.0-100.0); Monocytes # (auto) 0.5 10 ^3/uL (0-1.3); Monocytes % (auto) 11.8 % (0.0-12.0); Neutrophils # (auto) 1.3 10 ^3/uL (1.6-8.6); Neutrophils % (auto) 32.5 % (37.0-80.0); Nucleated Red Blood Cells % 0.2 %; Red Blood Cells 3.94 10^6/uL (4.0-5.20); Red Cell Distribution Width 15.1 % (11.8-14.3); White Blood Cell 3.9 10^3/uL (4.4-10.8)
[2024-05-22 12:37] LABS: Alanine Aminotransferase 57 U/L (7-40); Albumin 3.9 g/dL (3.2-4.8); Alkaline Phosphatase 100 U/L (46-116); Anion Gap 8 (5-15); Aspartate Aminotransferase 56 U/L (13-40); BUN/Creatinine Ratio 16.7 (10.0-20.0); Bilirubin, Total 0.9 mg/dL (0.2-1.0); Blood Urea Nitrogen 12 mg/dL (9-23); Calcium 9.7 mg/dL (8.7-10.4); Carbon Dioxide 22 mmol/L (20-30); Chloride 110 mmol/L (98-107); Glucose 121 mg/dL (74-106); Potassium 4.2 mmol/L (3.5-5.1); Sodium 140 mmol/L (136-145); Total Protein 6.6 g/dL (5.7-8.2)
[2024-05-22] MEDS ORDERED: LACTULOSE 20Gm/30ML SOLN PO SCH (13:30)
[2024-05-22] MEDS ORDERED: MORPHINE SULFATE INJ 2 MG/ml SYRG IV PRN (13:30)
[2024-05-22] MEDS ORDERED: NITROGLYCERIN 0.4 MG SL TAB SL PRN (13:30)
[2024-05-22] MEDS ORDERED: DOCUSATE SOD 100 MG CAP PO PRN (13:30)
[2024-05-22] MEDS: LACTULOSE 20Gm/30ML SOLN PO SCH (15:16)
[2024-05-22] MEDS: MORPHINE SULFATE INJ 2 MG/ml SYRG IV PRN (15:30)
[2024-05-22 18:59] LABS: Urine Bacteria None Seen /hpf (None Seen)
[2024-05-22 19:38] LABS: Urine Blood Negative /uL (Negative); Urine Clarity Clear (Clear); Urine Color Yellow (Yellow); Urine Mucus FEW (None Seen); Urine Protein, UAD Negative (Negative); Urine Specific Gravity 1.026 (1.001-1.035); Urine Urobilinogen 2 mg/dL (Negative); Urine WBC 9 /hpf (0 - 5)
[2024-05-22 21:17] VITALS: PULSE 69; RESP 18; O2SAT 95
[2024-05-22] MEDS: diphenhdrAMINE HCL 25 MG CAP PO ONE (22:12)
[2024-05-22] MEDS: ONDANSETRON HCL 4 MG/2 ML VIAL IV PRN (22:14)
[2024-05-22 22:44] VITALS: BP 122/48; PULSE 69; RESP 18; TEMP 98; O2SAT 95
[2024-05-23 01:00] VITALS: BP 90/45; PULSE 79; RESP 17; TEMP 98.1; O2SAT 92
[2024-05-23 05:00] VITALS: BP 97/57; PULSE 73; RESP 18; TEMP 98.1; O2SAT 92
[2024-05-23 06:25] LABS: Basophils # (auto) 0 10 ^3/uL (0-0.2); Basophils % (auto) 0.4 % (0.0-2.0); Eosinophils # (auto) 0.1 10 ^3/uL (0-0.8); Eosinophils % (auto) 3.4 % (0.0-7.0); Hematocrit 33.1 % (36.0-46.0); Hemoglobin 11.6 g/dL (12.2-16.2); Lymphocytes # (auto) 1.7 10 ^3/uL (0.4-5.4); Lymphocytes % (auto) 53.5 % (10.0-50.0); Mean Corpuscular Hemoglobin 32.7 pg (28.0-32.0); Mean Corpuscular Hgb Conc. 35.1 g/dL (32.0-36.0); Mean Corpuscular Volume 93.4 fL (80.0-100.0); Monocytes # (auto) 0.4 10 ^3/uL (0-1.3); Monocytes % (auto) 13.5 % (0.0-12.0); Neutrophils % (auto) 29.2 % (37.0-80.0); Red Blood Cells 3.54 10^6/uL (4.0-5.20); Red Cell Distribution Width 14.7 % (11.8-14.3); White Blood Cell 3.3 10^3/uL (4.4-10.8)
[2024-05-23 06:44] LABS: Alanine Aminotransferase 67 U/L (7-40); Albumin 3.3 g/dL (3.2-4.8); Alkaline Phosphatase 91 U/L (46-116); Anion Gap 12 (5-15); Aspartate Aminotransferase 72 U/L (13-40); BUN/Creatinine Ratio 15.9 (10.0-20.0); Bilirubin, Total 0.7 mg/dL (0.2-1.0); Blood Urea Nitrogen 13 mg/dL (9-23); Calcium 9.1 mg/dL (8.7-10.4); Carbon Dioxide 20 mmol/L (20-30); Chloride 114 mmol/L (98-107); Glucose 100 mg/dL (74-106); Potassium 3.9 mmol/L (3.5-5.1); Total Protein 5.5 g/dL (5.7-8.2)
[2024-05-23 06:47] LABS: Sodium 146 mmol/L (136-145)
[2024-05-23 08:00] VITALS: PULSE 69; RESP 18; O2SAT 95
[2024-05-23 09:00] VITALS: BP 105/65; PULSE 69; RESP 18; TEMP 97.5; O2SAT 95
[2024-05-23 12:52] VITALS: BP 112/62; PULSE 69; RESP 18; TEMP 97.8; O2SAT 90
[2024-05-23 14:59] VITALS: BP 105/63; PULSE 69; RESP 18; TEMP 97.5; O2SAT 95
== END 2024-05-23 15:48 | disposition home or self-care (01) | DRG 434 ==
LOC: ER 11:21 → OVERFLOW 13:24 → EAST 21:17
PROVIDERS: ADMIT Internal Medicine; ATTEND Internal Medicine
DX: K70.30 Alcoholic cirrhosis of liver without ascites (principal); K76.82 Hepatic encephalopathy; E03.9 Hypothyroidism, unspecified; G89.29 Other chronic pain; Z98.84 Bariatric surgery status; Z90.49 Acquired absence of other specified parts of digestive tract; Z86.19 Personal history of other infectious and parasitic diseases
CPT/HCPCS: 36415; 80053; 81001; 82140; 85025; 87081; G0378; J2405

== ENCOUNTER → 2024-05-22 | Outpatient (CLI) | payer OTHER, MEDICAID | END | disposition home or self-care (01) | LOC: LAB 09:27 | PROVIDERS: ATTEND Internal Medicine | DX: K76.82 Hepatic encephalopathy (principal) | CPT/HCPCS: 82140 ==

== ENCOUNTER → 2024-05-29 | Outpatient (CLI) | payer OTHER, MEDICAID | END | disposition home or self-care (01) | LOC: LAB 08:44 | PROVIDERS: ATTEND Internal Medicine | DX: K76.82 Hepatic encephalopathy (principal) | CPT/HCPCS: 82140 ==

== ENCOUNTER → 2024-06-19 | Outpatient (CLI) | payer OTHER, MEDICAID ==
[2024-06-19 11:34] LABS: Basophils # (auto) 0 10 ^3/uL (0-0.2); Basophils % (auto) 0.3 % (0.0-2.0); Eosinophils # (auto) 0.1 10 ^3/uL (0-0.8); Hemoglobin 13.4 g/dL (12.2-16.2); Lymphocytes # (auto) 1.6 10 ^3/uL (0.4-5.4); Lymphocytes % (auto) 45.4 % (10.0-50.0); Mean Corpuscular Hemoglobin 32.1 pg (28.0-32.0); Mean Corpuscular Hgb Conc. 34.4 g/dL (32.0-36.0); Mean Corpuscular Volume 93.4 fL (80.0-100.0); Monocytes # (auto) 0.4 10 ^3/uL (0-1.3); Monocytes % (auto) 9.7 % (0.0-12.0); Neutrophils # (auto) 1.5 10 ^3/uL (1.6-8.6); Neutrophils % (auto) 41.6 % (37.0-80.0); Nucleated Red Blood Cells % 0.1 %; Red Blood Cells 4.18 10^6/uL (4.0-5.20); Red Cell Distribution Width 15.1 % (11.8-14.3); White Blood Cell 3.6 10^3/uL (4.4-10.8)
[2024-06-19 11:45] LABS: INR 1.13 (0.9-1.15); Prothrombin Time 11.9 sec (9.3-11.8)
[2024-06-19 12:24] LABS: Alanine Aminotransferase 41 U/L (7-40); Albumin 4.1 g/dL (3.2-4.8); Alkaline Phosphatase 98 U/L (46-116); Anion Gap 7 (5-15); Aspartate Aminotransferase 40 U/L (13-40); BUN/Creatinine Ratio 15.5 (10.0-20.0); Blood Urea Nitrogen 11 mg/dL (9-23); Calcium 9.6 mg/dL (8.7-10.4); Carbon Dioxide 26 mmol/L (20-30); Chloride 107 mmol/L (98-107); Glucose 111 mg/dL (74-106); Potassium 4.4 mmol/L (3.5-5.1); Sodium 140 mmol/L (136-145)
[2024-06-19 12:25] LABS: Total Protein 6.8 g/dL (5.7-8.2)
== END | disposition home or self-care (01) ==
LOC: LAB 11:09
PROVIDERS: ATTEND Internal Medicine
DX: K70.30 Alcoholic cirrhosis of liver without ascites (principal); K76.82 Hepatic encephalopathy
CPT/HCPCS: 36415; 80053; 82105; 82140; 85025; 85610

== ENCOUNTER 2024-07-17 17:52 | Emergency (ER) | payer OTHER, MEDICAID ==
[~2024-07-17] VITALS: Ht 160 cm; Wt 71.1 kg
[2024-07-17 18:10] VITALS: BP 144/74; PULSE 94; RESP 18; O2SAT 96
[2024-07-17] MEDS ORDERED: SODIUM CHLORIDE 0.9% 1,000 ML IV ONE (20:30)
[2024-07-17] MEDS ORDERED: ONDANSETRON HCL 4 MG/2 ML VIAL IV ONE (20:30)
[2024-07-17] MEDS ORDERED: FAMOTIDINE (10MG/ML) 2ML VL IV ONE (20:30)
[2024-07-17 21:18] LABS: Basophils # (auto) 0 10 ^3/uL (0-0.2); Basophils % (auto) 0.5 % (0.0-2.0); Eosinophils # (auto) 0.1 10 ^3/uL (0-0.8); Hematocrit 38.6 % (36.0-46.0); Hemoglobin 13.3 g/dL (12.2-16.2); Lymphocytes # (auto) 1.9 10 ^3/uL (0.4-5.4); Lymphocytes % (auto) 40.6 % (10.0-50.0); Mean Corpuscular Hemoglobin 32.1 pg (28.0-32.0); Mean Corpuscular Hgb Conc. 34.4 g/dL (32.0-36.0); Mean Corpuscular Volume 93.3 fL (80.0-100.0); Monocytes # (auto) 0.6 10 ^3/uL (0-1.3); Monocytes % (auto) 12.2 % (0.0-12.0); Neutrophils # (auto) 2.1 10 ^3/uL (1.6-8.6); Neutrophils % (auto) 44.7 % (37.0-80.0); Platelet Count (auto) 135 10^3/uL (140-450); Red Blood Cells 4.14 10^6/uL (4.0-5.20); Red Cell Distribution Width 15.3 % (11.8-14.3); White Blood Cell 4.8 10^3/uL (4.4-10.8)
[2024-07-17 21:44] LABS: Alanine Aminotransferase 55 U/L (7-40); Alkaline Phosphatase 107 U/L (46-116); Anion Gap 5 (5-15); Aspartate Aminotransferase 56 U/L (13-40); Blood Urea Nitrogen 12 mg/dL (9-23); Calcium 9.8 mg/dL (8.7-10.4); Carbon Dioxide 28 mmol/L (20-30); Chloride 106 mmol/L (98-107); Glucose 80 mg/dL (74-106); Potassium 3.9 mmol/L (3.5-5.1); Sodium 139 mmol/L (136-145)
[2024-07-17 21:45] LABS: Albumin 4.3 g/dL (3.2-4.8); Total Protein 7.4 g/dL (5.7-8.2)
== END 2024-07-18 05:07 | disposition left against medical advice (07) ==
LOC: ER 17:52
DX: K76.82 Hepatic encephalopathy (principal); K74.60 Unspecified cirrhosis of liver; R41.0 Disorientation, unspecified; R53.1 Weakness; Z79.899 Other long term (current) drug therapy; Z90.49 Acquired absence of other specified parts of digestive tract; Z98.890 Other specified postprocedural states
CPT/HCPCS: 36415; 70450; 71046; 80053; 82140; 83880; 84484; 85025

== ENCOUNTER → 2024-07-31 | Outpatient (CLI) | payer OTHER, MEDICAID ==
[2024-07-31 08:30] LABS: Basophils # (auto) 0 10 ^3/uL (0-0.2); Basophils % (auto) 0.4 % (0.0-2.0); Eosinophils # (auto) 0.1 10 ^3/uL (0-0.8); Eosinophils % (auto) 2.2 % (0.0-7.0); Hematocrit 39.1 % (36.0-46.0); Hemoglobin 13.6 g/dL (12.2-16.2); Lymphocytes # (auto) 1.6 10 ^3/uL (0.4-5.4); Lymphocytes % (auto) 42.5 % (10.0-50.0); Mean Corpuscular Hemoglobin 32.2 pg (28.0-32.0); Mean Corpuscular Hgb Conc. 34.7 g/dL (32.0-36.0); Mean Corpuscular Volume 92.8 fL (80.0-100.0); Monocytes # (auto) 0.5 10 ^3/uL (0-1.3); Monocytes % (auto) 12.3 % (0.0-12.0); Neutrophils # (auto) 1.6 10 ^3/uL (1.6-8.6); Neutrophils % (auto) 42.6 % (37.0-80.0); Nucleated Red Blood Cells % 0.4 %; Platelet Count (auto) 126 10^3/uL (140-450); Red Blood Cells 4.21 10^6/uL (4.0-5.20); Red Cell Distribution Width 15.3 % (11.8-14.3); White Blood Cell 3.8 10^3/uL (4.4-10.8)
== END | disposition home or self-care (01) ==
LOC: LAB 07:30
PROVIDERS: ATTEND Internal Medicine
DX: K76.82 Hepatic encephalopathy (principal)
CPT/HCPCS: 36415; 82140; 85025

== ENCOUNTER → 2024-08-02 | Outpatient (CLI) | payer OTHER, MEDICAID | END | disposition home or self-care (01) | LOC: LAB 13:41 | PROVIDERS: ATTEND Internal Medicine | DX: K76.82 Hepatic encephalopathy (principal); K70.30 Alcoholic cirrhosis of liver without ascites | CPT/HCPCS: 82140 ==

== ENCOUNTER → 2024-08-10 | Outpatient (CLI) | payer OTHER, MEDICAID ==
[2024-08-10 13:39] LABS: Anion Gap 6 (5-15); Carbon Dioxide 27 mmol/L (20-31); Chloride 106 mmol/L (98-107); Potassium 4.2 mmol/L (3.5-5.1); Sodium 139 mmol/L (136-145)
[2024-08-10 13:40] LABS: Calcium 9.7 mg/dL (8.7-10.4)
[2024-08-10 13:44] LABS: Glucose 102 mg/dL (74-106)
[2024-08-10 13:45] LABS: BUN/Creatinine Ratio 13.3 (10.0-20.0); Blood Urea Nitrogen 10 mg/dL (9-23); Magnesium 2.4 mg/dL (1.6-2.6)
== END | disposition home or self-care (01) ==
LOC: LAB 11:14
PROVIDERS: ATTEND Internal Medicine
DX: K76.82 Hepatic encephalopathy (principal); K70.30 Alcoholic cirrhosis of liver without ascites; Z79.899 Other long term (current) drug therapy
CPT/HCPCS: 36415; 80048; 82140; 83735

== ENCOUNTER → 2024-09-14 | Outpatient (CLI) | payer OTHER, MEDICAID ==
[2024-09-14 15:48] LABS: Basophils # (auto) 0 10 ^3/uL (0-0.2); Basophils % (auto) 0.3 % (0.0-2.0); Eosinophils # (auto) 0.1 10 ^3/uL (0-0.8); Eosinophils % (auto) 2.7 % (0.0-7.0); Hematocrit 38.6 % (36.0-46.0); Hemoglobin 13.3 g/dL (12.2-16.2); Lymphocytes # (auto) 2.1 10 ^3/uL (0.4-5.4); Lymphocytes % (auto) 46.5 % (10.0-50.0); Mean Corpuscular Hgb Conc. 34.5 g/dL (32.0-36.0); Mean Corpuscular Volume 92.9 fL (80.0-100.0); Monocytes # (auto) 0.5 10 ^3/uL (0-1.3); Monocytes % (auto) 11.2 % (0.0-12.0); Neutrophils # (auto) 1.8 10 ^3/uL (1.6-8.6); Neutrophils % (auto) 39.3 % (37.0-80.0); Nucleated Red Blood Cells % 0.2 %; Platelet Count (auto) 145 10^3/uL (140-450); Red Blood Cells 4.16 10^6/uL (4.0-5.20); Red Cell Distribution Width 15.5 % (11.8-14.3); White Blood Cell 4.5 10^3/uL (4.4-10.8)
== END | disposition home or self-care (01) ==
LOC: LAB 14:48
PROVIDERS: ATTEND Internal Medicine
DX: K74.60 Unspecified cirrhosis of liver (principal)
CPT/HCPCS: 36415; 82140; 82306; 82607; 85025

== ENCOUNTER → 2024-10-16 | Outpatient (CLI) | payer OTHER, MEDICAID ==
[2024-10-16 11:44] LABS: Basophils # (auto) 0 10 ^3/uL (0-0.2); Basophils % (auto) 0.3 % (0.0-2.0); Eosinophils # (auto) 0.1 10 ^3/uL (0-0.8); Eosinophils % (auto) 1.6 % (0.0-7.0); Hematocrit 37.9 % (36.0-46.0); Hemoglobin 12.9 g/dL (12.2-16.2); Lymphocytes # (auto) 1.9 10 ^3/uL (0.4-5.4); Lymphocytes % (auto) 34.8 % (10.0-50.0); Mean Corpuscular Hemoglobin 31.6 pg (28.0-32.0); Mean Corpuscular Hgb Conc. 34.1 g/dL (32.0-36.0); Mean Corpuscular Volume 92.8 fL (80.0-100.0); Monocytes # (auto) 0.5 10 ^3/uL (0-1.3); Monocytes % (auto) 10.2 % (0.0-12.0); Neutrophils # (auto) 2.8 10 ^3/uL (1.6-8.6); Neutrophils % (auto) 53.1 % (37.0-80.0); Platelet Count (auto) 148 10^3/uL (140-450); Red Blood Cells 4.08 10^6/uL (4.0-5.20); Red Cell Distribution Width 14.7 % (11.8-14.3); White Blood Cell 5.4 10^3/uL (4.4-10.8)
== END | disposition home or self-care (01) ==
LOC: LAB 11:25
PROVIDERS: ATTEND Internal Medicine
DX: E87.6 Hypokalemia (principal); E78.1 Pure hyperglyceridemia; Z79.899 Other long term (current) drug therapy
CPT/HCPCS: 36415; 82306; 82607; 85025

== ENCOUNTER → 2024-12-11 | Outpatient (CLI) | payer OTHER, MEDICAID ==
[2024-12-11 09:11] LABS: Alanine Aminotransferase 33 U/L (7-40); Albumin 4.4 g/dL (3.2-4.8); Alkaline Phosphatase 91 U/L (46-116); Anion Gap 7 (5-15); Aspartate Aminotransferase 35 U/L (13-40); BUN/Creatinine Ratio 18.8 (10.0-20.0); Bilirubin, Total 0.6 mg/dL (0.2-1.0); Blood Urea Nitrogen 13 mg/dL (9-23); Calcium 9.8 mg/dL (8.7-10.4); Carbon Dioxide 28 mmol/L (20-31); Chloride 106 mmol/L (98-107); Potassium 3.7 mmol/L (3.5-5.1); Sodium 141 mmol/L (136-145); Total Protein 6.9 g/dL (5.7-8.2)
[2024-12-11 09:16] LABS: Glucose 120 mg/dL (74-106)
== END | disposition home or self-care (01) ==
LOC: LAB 07:46
PROVIDERS: ATTEND Internal Medicine
DX: K76.82 Hepatic encephalopathy (principal)
CPT/HCPCS: 36415; 80053; 82140

== ENCOUNTER → 2024-12-19 | Outpatient (CLI) | payer OTHER, MEDICAID | END | disposition home or self-care (01) | LOC: LAB 09:35 | PROVIDERS: ATTEND Internal Medicine | DX: K74.60 Unspecified cirrhosis of liver (principal) | CPT/HCPCS: 82140 ==

== ENCOUNTER → 2025-01-15 | Outpatient (CLI) | payer OTHER, MEDICAID | END | disposition home or self-care (01) | LOC: LAB 10:21 | PROVIDERS: ATTEND Internal Medicine | DX: K76.82 Hepatic encephalopathy (principal); K76.6 Portal hypertension | CPT/HCPCS: 82140 ==

== ENCOUNTER 2025-02-05 18:48 | Inpatient (IN) | payer OTHER, MEDICAID ==
[~2025-02-05] VITALS: Ht 160 cm; Wt 62.0 kg
--- NOTE | 2025-02-05 19:04 | ED.PDOC ---
HPI (NEURO) HPI Comments 64 y.o female presents to the ED with worsening dizziness over the past 3 days, associated with chronic nausea and vomiting which are partially alleviated with Zofran. The patient reports a long standing history of vertigo, for which she has been prescribed Dramamine by her PCP, providing mild symptomatic relief. Patient also endorses cramping in multiple muscle groups. The patient also reports chronic abdominal pain, with a liver biopsy scheduled tomorrow. Past medical history is extensive and includes: Hepatic encephalopathy, liver cirrhosis, sciatica, colitis, PUD, GI bleeding, anemia, 2 blood transfusions, melanoma Chief Complaint: Dizziness Time Seen by MD: 18:52 Primary Care Provider: Elizabeth Reviewed Notes: Nurses Notes, Medications, Allergies Information Source: Patient Mode of Arrival: Ambulatory Severity: Moderate Dizziness/Weakness Severity: Unable to do activities Timing: Came on: Gradually Onset: At rest Circumstances: Spontaneous History of: Other Modifying factors: Nothing Associated Signs and Symptoms: Nausea, Vomiting Past Medical History PAST MEDICAL HISTORY: Liver Surgical History: Cholecystectomy, 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 History Family History Family History: Reviewed,noncontributory to illness Social History Smoker: Non-Smoker Alcohol: Denies ETOH Use Drugs: Denies Drug Use Lives In: Home Constitutional: denies: chills, diaphoresis, fatigue, fever, malaise, sweats, weakness, others EENTM: denies: blurred vision, double vision, ear bleeding, ear discharge, ear drainage, ear pain, ear ringing, eye pain, eye redness, hearing loss, mouth pain, mouth swelling, nasal discharge, nose bleeding, nose congestion, nose pain, photophobia, tearing, throat pain, throat swelling, voice changes, others Respiratory: denies: cough, hemoptysis, orthopnea, SOB at rest, shortness of breath, SOB with excertion, stridor, wheezing, others Cardiovascular: denies: chest pain, dizzy spells, diaphoresis, Dyspnea on exertion, edema, irregular heart beat, left arm pain, lightheadedness, palpitations, PND, syncope, others Gastrointestinal: reports: nausea, vomiting; denies: abdomen distended, abdominal pain, blood streaked bowels, constipated, diarrhea, dysphagia, difficulty swallowing, hematemesis, melena, poor appetite, poor fluid intake, rectal bleeding, rectal pain, others Genitourinary: denies: abnormal vagina bleeding, burning, dyspareunia, dysuria, flank pain, frequency, hematuria, incontinence, pain, , vagina discharge, urgency, others Neurological: reports: dizziness; denies: fainting, headache, left sided numbness, left sided weakness, numbness, paresthesia, pre-existing deficit, right sided numbness, right sided weakness, seizure, speech problems, tingling, tremors, weakness, others Musculoskeletal: reports: muscle stiffness; denies: back pain, gout, joint pain, joint swelling, muscle pain, neck pain, others Integumetry: denies: bruises, change in color, change in hair/nails, dryness, laceration, lesions, lumps, rash, wounds, others Allergic/Immunocompromised: denies: Difficulty Healing, Frequent Infections, Hives, Itching, others Hematologic/Lymphatic: denies: anemia, blood clots, easy bleeding, easy bruising, swollen glands, others Endocrine: denies: excessive hunger, excessive sweating, excessive thirst, excessive urination, flushing, intolerance to cold, intolerance to heat, unexplained weight gain, unexplained weight loss, others Psychiatric: denies: anxiety, bipolar disorder, depression, hopeless, panic disorder, schizophrenia, sleepless, suicidal, others All Other Systems: Reviewed and Negative Physical Exam General Appearance: No Apparent Distress, Normal HEENT: Normal ENT Inspection, Pharynx Normal, TMs Normal Neck: Full Range of Motion, Non-Tender, Normal, Normal Inspection Respiratory: Chest Non-Tender, Lungs Clear, No Accessory Muscle Use, No Respiratory Distress, Normal Breath Sounds Cardiovascular: No Edema, No JVD, No Murmur, No Gallop, Normal Peripheral Pulses, Regular Rate/Rhythm Breast Exam: Deferred Gastrointestinal: No Organomegaly, Non Tender, No Pulsatile Mass, Normal Bowel Sounds, Soft Genitalia: Deferred Pelvic: Deferred Rectal: Deferred Extremities: No calf tenderness, Normal capillary refill, Normal inspection, Normal range of motion, Non-tender, No pedal edema Musculoskeletal : Apperance: Normal Neurologic: Alert, director of staff development II-XII nml as Tested, Normal Affect, Normal Mood, Other (Unsteady gait. Negative facial droop. Negative pronator drift, 5/5 strength in bilateral upper and lower extremities.) Cerebellar Function: Normal Reflexes: Normal Skin: Dry, Normal Color, Warm Lymphatic: No Adenopathy Was a procedure done? Was a procedure done?: No Differential Diagnosis (SZ) General Weakness: Dehydration, Electrolyte imbalance, Meniere's disease, Myasthenia gravis, Vertigo: central, Vertigo: peripheral, Vestibular neuronitis X-Ray, Labs, Meds, VS Vital Signs Date Time Temp Pulse Resp B/P (MAP) Pulse Ox O2 Delivery O2 Flow Rate FiO2 02/05/25 23:19 98.3 76 16 118/73 (88) 96 98.3 02/05/25 22:15 84 16 96 Room Air 02/05/25 22:00 98.2 84 16 131/74 (93) 96 98.2 02/05/25 19:04 83 02/05/25 19:00 98.0 84 16 121/84 (96) 97 98.0 Lab Test 02/05/25 22:28 02/05/25 22:21 02/05/25 20:49 02/05/25 19:31 Range/Units Urine Color Light-yellow Yellow Urine Clarity Clear Clear Urine pH 5.5 5.0-9.0 Urine Specific [place] 1.013 1.001-1.035 Urine Protein Negative Negative Urine Ketones Negative Negative Urine Blood Negative Negative /uL Urine Nitrite Negative Negative Urine Bilirubin Negative Negative Urine Urobilinogen Normal Negative mg/dL Urine Leukocyte Esterase Negative Negative /uL Urine RBC <1 0 - 4 /hpf Urine Microscopic WBC 3 0-5 /HPF Urine Squamous Epithelial Cells Few <5 /hpf Urine Bacteria None seen None Seen /hpf Urine Glucose Normal Normal mg/dL Urine Opiates Screen Neg NEGATIVE Urine Fentanyl Screen Neg NEGATIVE Urine Barbiturates Screen Neg NEGATIVE Urine Phencyclidine Screen Neg NEGATIVE Urine Amphetamines Screen Neg NEGATIVE Urine Benzodiazepines Screen Neg NEGATIVE Urine Cocaine Screen Neg NEGATIVE Urine Cannabinoids Screen Pos NEGATIVE Ammonia 81 H 11-32 umol/L Troponin I High Sensitivity < 3 L < 3 L </=34 ng/L White Blood Count 4.7 4.4-10.8 10^3/uL Red Blood Count 4.35 4.0-5.20 10^6/uL Hemoglobin 13.4 12.2-16.2 g/dL Hematocrit 39.6 36.0-46.0 % Mean Corpuscular Volume 91.0 80.0-100.0 fL Mean Corpuscular Hemoglobin 30.9 28.0-32.0 pg Mean Corpuscular Hemoglobin Concent 33.9 32.0-36.0 g/dL Red Cell Distribution Width 15.3 H 11.8-14.3 % Platelet Count 155 140-450 10^3/uL Mean Platelet Volume 8.9 6.9-10.8 fL Neutrophils (%) (Auto) 40.4 37.0-80.0 % Lymphocytes (%) (Auto) 45.1 10.0-50.0 % Monocytes (%) (Auto) 12.1 H 0.0-12.0 % Eosinophils (%) (Auto) 2.1 0.0-7.0 % Basophils (%) (Auto) 0.3 0.0-2.0 % Neutrophils # (Auto) 1.9 1.6-8.6 10 ^3/uL Lymphocytes # (Auto) 2.1 0.4-5.4 10 ^3/uL Monocytes # (Auto) 0.6 0-1.3 10 ^3/uL Eosinophils # (Auto) 0.1 0-0.8 10 ^3/uL Basophils # (Auto) 0 0-0.2 10 ^3/uL Nucleated Red Blood Cells 0.1 % Sodium Level 145 136-145 mmol/L Potassium Level 3.2 L 3.5-5.1 mmol/L Chloride Level 107 98-107 mmol/L Carbon Dioxide Level 30 20-31 mmol/L Anion Gap 8 5-15 Blood Urea Nitrogen 11 9-23 mg/dL Creatinine 0.78 0.550-1.02 mg/dL Glomerular Filtration Rate Calc 86 >90 mL/min BUN/Creatinine Ratio 14.1 10.0-20.0 Serum Glucose 111 H 74-106 mg/dL Calcium Level 10.1 8.7-10.4 mg/dL Total Bilirubin 0.7 0.2-1.0 mg/dL Aspartate Amino Transferase (AST) 40 13-40 U/L Alanine Aminotransferase (ALT) 30 7-40 U/L Alkaline Phosphatase 100 46-116 U/L Total Protein 7.5 5.7-8.2 g/dL Albumin 4.6 3.2-4.8 g/dL Test 02/05/25 18:57 Range/Units POC Glucose 101 70-106 mg/dl Current Medications Medications (Trade) Dose Ordered Sig/Yamila Route Start Time Stop Time Status Last Admin Sodium Chloride 1,000 ml @ 1,000 mls/hr Q1H ONCE IV 02/05/25 19:15 02/05/25 20:14 DC 02/05/25 22:06 Meclizine HCl (Antivert Tablet) 25 mg ONCE ONCE PO 02/05/25 19:15 02/05/25 19:16 DC 02/05/25 22:12 X-Ray, Labs, Meds, VS Comment CT Head IMPRESSION: No acute intracranial abnormality identified. 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 MDM: Patient with history as above presented with dizziness. History obtained from patient. Patient was nontoxic, stable, afebrile, ambulatory, no acute distress. Exam as above. Labs reviewed. CBC did not show leukocytosis. No anemia noted. CMP mild hypokalemia at 3.2, otherwise no significant electrolyte abnormalities. Ammonia elevated at 81. Troponin x2 were negative. Urinalysis was negative for acute infection. Urine drug screen was positive for cannabinoids. Independently reviewed imaging. CT head did not show acute intracranial abnormality. Reviewed external records. All findings were discussed with the patient. Differential diagnosis considered. Overall presentation is consistent with nonspecific vertigo. Low suspicion for subarachnoid hemorrhage, subdural hemorrhage. Patient was treated with IV fluids and meclizine without improvement in symptoms. Patient will be admitted to the hospital for further evaluation due to continuous dizziness is one. Patient has unsteady gait. May need MRI for to rule out cerebellar stroke. Neurology consult will be placed. Disposition: Admit This medical document was created using the [employer] dictation system. Although this document has been carefully reviewed, there may still be some phonetic and typographical errors, which are due to imperfections of the software program, and do not reflect any compromise in the patient's medical care. Time of 1ST Reevaluation: 19:08 Reevaluation 1ST: Unchanged Time of 2ND Reevaluation: 00:13 Reevaluation 2ND: Unchanged Patient Education/Counseling: Diagnosis, Treatment, Prognosis, Need For Follow Up Family Education/Counseling: No Family Present Departure 1 Departure Time of Disposition: 00:13 Impression: Primary Impression: Dizziness Disposition: 09 ADMITTED INPATIENT Condition: Fair Critical Care Note Critical Care Time?: No Stability Stability form required: No Heart Score Heart Score: Heart Score Response (Comments) Value History N/A 0 EKG N/A 0 Age N/A 0 Risk Factors N/A 0 Troponin N/A 0 Total 0 I personally scribed for ELIDA ZAPIEN MD ([email or web address]) on 02/05/25 at 19:13. Electronically submitted by Ana Hinkle ([facility]). I personally scribed for ELIDA ZAPIEN MD ([email or web address]) on 02/05/25 at 19:14. Electronically submitted by Ana Hinkle ([facility]). I personally scribed for ELIDA ZAPIEN MD ([email or web address]) on 02/05/25 at 21:14. Electronically submitted by Ana Hinkle ([facility] GAMALIEL DANIEL Feb 05, 2025 19:04 ELIDA ZAPIEN MD Feb 05, 2025 19:13
--- NOTE | 2025-02-05 19:23 | ECG ---
[facility] Test Date: 2025-02-05 Test Time: 19:04:58 Pat Name: NILESH ASHLEY Department: ER Room: 0284 Gender: F Records Analyst: GP : [id number] Requested By: GAMALIEL DANIEL Order Number: [id number] Reading MD: Braxton Madison Measurements Intervals [place] Rate: 83 P: 75 NH: 158 QRS: 73 QRSD: 99 T: 64 QT: 418 QTc: 492 Interpretive Statements Sinus rhythm Borderline prolonged QT interval Electronically Signed On 02-08-2025 13:59:16 PDT by Braxton Madison Please click the below link to view image of tracing.
[2025-02-05 19:48] LABS: Basophils # (auto) 0 10 ^3/uL (0-0.2); Basophils % (auto) 0.3 % (0.0-2.0); Eosinophils # (auto) 0.1 10 ^3/uL (0-0.8); Eosinophils % (auto) 2.1 % (0.0-7.0); Hematocrit 39.6 % (36.0-46.0); Hemoglobin 13.4 g/dL (12.2-16.2); Lymphocytes # (auto) 2.1 10 ^3/uL (0.4-5.4); Lymphocytes % (auto) 45.1 % (10.0-50.0); Mean Corpuscular Hemoglobin 30.9 pg (28.0-32.0); Mean Corpuscular Hgb Conc. 33.9 g/dL (32.0-36.0); Monocytes # (auto) 0.6 10 ^3/uL (0-1.3); Monocytes % (auto) 12.1 % (0.0-12.0); Neutrophils # (auto) 1.9 10 ^3/uL (1.6-8.6); Neutrophils % (auto) 40.4 % (37.0-80.0); Nucleated Red Blood Cells % 0.1 %; Platelet Count (auto) 155 10^3/uL (140-450); Red Blood Cells 4.35 10^6/uL (4.0-5.20); Red Cell Distribution Width 15.3 % (11.8-14.3); White Blood Cell 4.7 10^3/uL (4.4-10.8)
[2025-02-05 19:57] LABS: Alanine Aminotransferase 30 U/L (7-40); Albumin 4.6 g/dL (3.2-4.8); Alkaline Phosphatase 100 U/L (46-116); Anion Gap 8 (5-15); Aspartate Aminotransferase 40 U/L (13-40); BUN/Creatinine Ratio 14.1 (10.0-20.0); Bilirubin, Total 0.7 mg/dL (0.2-1.0); Blood Urea Nitrogen 11 mg/dL (9-23); Calcium 10.1 mg/dL (8.7-10.4); Carbon Dioxide 30 mmol/L (20-31); Chloride 107 mmol/L (98-107); Total Protein 7.5 g/dL (5.7-8.2)
[2025-02-05 19:58] LABS: Glucose 111 mg/dL (74-106); Potassium 3.2 mmol/L (3.5-5.1); Sodium 145 mmol/L (136-145)
--- NOTE | 2025-02-05 20:04 | DVH ---
CT HEAD WITHOUT CONTRAST INDICATION: Dizziness COMPARISON: CT HEAD WITHOUT CONTRAST on DOS: 07/17/24, CT HEAD WITHOUT CONTRAST on DOS: 11/25/23, CT HEA D WITHOUT CONTRAST on DOS: 02/23/23, CT HEAD WITHOUT CONTRAST on DOS: 02/14/23, CT HEAD WITHOUT CONTRAST on DOS: 02/01/23 TECHNIQUE: CT of the head without intravenous contrast. RADIATION DOSE: CTDIvol: mGy, DLP: mGy*cm FINDINGS: There is no evidence of intracranial hemorrhage, acute infarct, extra-axial collection, mass effect, midline shift, herniation or hydrocephalus. There is a small old infarct in the left superior cereb ellum which has been present on prior studies dating back at least February 2023. The ventricles, sulci and cisterns are normal. The moreno-white differentiation is normal. Visualized paranasal sinuses and m astoid air cells are clear. Soft tissues and osseous structures are unremarkable. IMPRESSION: No acute intracranial abnormality identified. 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
[2025-02-05] MEDS: SODIUM CHLORIDE 0.9% 1,000 ML IV ONE (22:06)
[2025-02-05] MEDS: MECLIZINE HCL 25 MG TAB PO ONE (22:12)
[2025-02-05 22:58] LABS: Urine Bacteria None Seen /hpf (None Seen)
[2025-02-05 23:10] LABS: Urine Blood Negative /uL (Negative); Urine Clarity Clear (Clear); Urine Color Light-Yellow (Yellow); Urine Protein, UAD Negative (Negative); Urine Specific Gravity 1.013 (1.001-1.035); Urine Squamous Epithelial Cell FEW /hpf (<5); Urine Urobilinogen Normal (Negative); Urine WBC 3 /HPF (0-5); Urine pH 5.5 (5.0-9.0)
[2025-02-05 23:21] LABS: Cannabinoid Screen, Urine Pos (NEGATIVE); Opiate Scree,Urine Neg (NEGATIVE)
[2025-02-05 23:22] LABS: Amphetamine Screen, Urine Neg (NEGATIVE); Barbiturate Scree,Urine Neg (NEGATIVE); Benzodiazephine Screen, Urine Neg (NEGATIVE); Cocaine Screen, Urine Neg (NEGATIVE); Phencyclidine Screen, Urine Neg (NEGATIVE)
[2025-02-06 00:40] VITALS: PULSE 76; RESP 16; O2SAT 96
[2025-02-06 01:30] VITALS: BP 120/63; PULSE 98; RESP 18; TEMP 97.6
--- NOTE | 2025-02-06 04:35 | DVHHP2 ---
History of Present Illness Reason for Visit: DIZZINESS History of Present Illness 64-year-old female presents for evaluation of dizziness. Patient reports a three day history of worsening dizziness with associated nausea and vomiting. Patient reports a history of vertigo denies headache or blurred vision. No unilateral weakness. No cardiac or respiratory complaints. Past Medical History Hypothyroid and liver disease Past Surgical History cholecystectomy Family History Noncontributory Smoke: No ALCOHOL: none Drugs: None Lives: with Family Review of Systems Review of Systems Review of systems are currently negative otherwise addressed in HPI. Allergies: Coded Allergies: NO KNOWN ALLERGIES (Unverified , 09/11/17) Medications Current Medications Medications Dose Ordered Sig/Yamila Route Start Time Stop Time Status Last Admin Dose Admin Rifaximin 550 mg BID PO 02/06/25 10:00 Lactulose 30 ml DAILY PO 02/06/25 10:00 Levothyroxine Sodium 25 mcg QAM@0600 PO 02/06/25 06:00 Spironolactone 25 mg DAILY PO 02/06/25 10:00 Furosemide 40 mg DAILY PO 02/06/25 10:00 Ondansetron HCl 4 mg Q4HP PRN IV 02/06/25 00:15 Meclizine HCl 25 mg Q6HPRN PRN PO 02/06/25 00:45 Exam Vital Signs Vital Signs Date Time Temp Pulse Resp B/P (MAP) Pulse Ox O2 Delivery O2 Flow Rate FiO2 02/06/25 01:30 97.6 98 18 120/63 (82) 97.6 02/06/25 01:30 Room Air* 0 21 02/06/25 00:40 96 Exam Gen: 64-year-old female in mild distress Skin: Warm, dry, normal color and texture, no rash. HEENT: Normocephalic atraumatic, mucous membranes moist and pink. Neck: Cervical and supraclavicular nodes normal without enlargement, trachea is midline, thyroid gland is normal without masses. Pulmonary: Clear to auscultation and percussion bilaterally. Cardiac: Regular rate and rhythm. No murmur Abdomen: Soft, nontender, nondistended, bowel sounds present all 4 quadrants, no guarding, no rigidity, no organomegaly. Extremities: No cyanosis, clubbing, no edema Neuro: Cranial nerves II through XII grossly intact, normal affect and speech, no focal motor deficits. Labs/Xrays ORDERING PHYSICIAN: GAMALIEL DANIEL PAC PROCEDURE(s): HWOCT - HEAD WITHOUT CONTRAST REASON: Dizziness ORDER NUMBER(s): [id number], ACCESSION NUMBER(s): [id number] CT HEAD WITHOUT CONTRAST INDICATION: Dizziness COMPARISON: CT HEAD WITHOUT CONTRAST on DOS: 07/17/24, CT HEAD WITHOUT CONTRAST on DOS: 11/25/23, CT HEAD WITHOUT CONTRAST on DOS: 02/23/23, CT HEAD WITHOUT CONTRAST on DOS: 02/14/23, CT HEAD WITHOUT CONTRAST on DOS: 02/01/23 TECHNIQUE: CT of the head without intravenous contrast. RADIATION DOSE: CTDIvol: mGy, DLP: mGy*cm FINDINGS: There is no evidence of intracranial hemorrhage, acute infarct, extra-axial collection, mass effect, midline shift, herniation or hydrocephalus. There is a small old infarct in the left superior cerebellum which has been present on prior studies dating back at least February 2023. The ventricles, sulci and cisterns are normal. The moreno-white differentiation is normal. Visualized parana macey sinuses and mastoid air cells are clear. Soft tissues and osseous structures are unremarkable. IMPRESSION: No acute intracranial abnormality identified. 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 Labs Test 02/05/25 22:28 02/05/25 22:21 02/05/25 20:49 02/05/25 19:31 Range/Units Urine Color Light-yellow Yellow Urine Clarity Clear Clear Urine pH 5.5 5.0-9.0 Urine Specific [place] 1.013 1.001-1.035 Urine Protein Negative Negative Urine Ketones Negative Negative Urine Blood Negative Negative /uL Urine Nitrite Negative Negative Urine Bilirubin Negative Negative Urine Urobilinogen Normal Negative mg/dL Urine Leukocyte Esterase Negative Negative /uL Urine RBC <1 0 - 4 /hpf Urine Microscopic WBC 3 0-5 /HPF Urine Squamous Epithelial Cells Few <5 /hpf Urine Bacteria None seen None Seen /hpf Urine Glucose Normal Normal mg/dL Urine Opiates Screen Neg NEGATIVE Urine Fentanyl Screen Neg NEGATIVE Urine Barbiturates Screen Neg NEGATIVE Urine Phencyclidine Screen Neg NEGATIVE Urine Amphetamines Screen Neg NEGATIVE Urine Benzodiazepines Screen Neg NEGATIVE Urine Cocaine Screen Neg NEGATIVE Urine Cannabinoids Screen Pos NEGATIVE Ammonia 81 H 11-32 umol/L Troponin I High Sensitivity < 3 L </=34 ng/L Thyroid Stimulating Hormone (TSH) 0.88 0.55-4.78 uIU/mL White Blood Count 4.7 4.4-10.8 10^3/uL Red Blood Count 4.35 4.0-5.20 10^6/uL Hemoglobin 13.4 12.2-16.2 g/dL Hematocrit 39.6 36.0-46.0 % Mean Corpuscular Volume 91.0 80.0-100.0 fL Mean Corpuscular Hemoglobin 30.9 28.0-32.0 pg Mean Corpuscular Hemoglobin Concent 33.9 32.0-36.0 g/dL Red Cell Distribution Width 15.3 H 11.8-14.3 % Platelet Count 155 140-450 10^3/uL Mean Platelet Volume 8.9 6.9-10.8 fL Neutrophils (%) (Auto) 40.4 37.0-80.0 % Lymphocytes (%) (Auto) 45.1 10.0-50.0 % Monocytes (%) (Auto) 12.1 H 0.0-12.0 % Eosinophils (%) (Auto) 2.1 0.0-7.0 % Basophils (%) (Auto) 0.3 0.0-2.0 % Neutrophils # (Auto) 1.9 1.6-8.6 10 ^3/uL Lymphocytes # (Auto) 2.1 0.4-5.4 10 ^3/uL Monocytes # (Auto) 0.6 0-1.3 10 ^3/uL Eosinophils # (Auto) 0.1 0-0.8 10 ^3/uL Basophils # (Auto) 0 0-0.2 10 ^3/uL Nucleated Red Blood Cells 0.1 % Sodium Level 145 136-145 mmol/L Potassium Level 3.2 L 3.5-5.1 mmol/L Chloride Level 107 98-107 mmol/L Carbon Dioxide Level 30 20-31 mmol/L Anion Gap 8 5-15 Blood Urea Nitrogen 11 9-23 mg/dL Creatinine 0.78 0.550-1.02 mg/dL Glomerular Filtration Rate Calc 86 >90 mL/min BUN/Creatinine Ratio 14.1 10.0-20.0 Serum Glucose 111 H 74-106 mg/dL Calcium Level 10.1 8.7-10.4 mg/dL Total Bilirubin 0.7 0.2-1.0 mg/dL Aspartate Amino Transferase (AST) 40 13-40 U/L Alanine Aminotransferase (ALT) 30 7-40 U/L Alkaline Phosphatase 100 46-116 U/L Total Protein 7.5 5.7-8.2 g/dL Albumin 4.6 3.2-4.8 g/dL Test 02/05/25 18:57 Range/Units POC Glucose 101 70-106 mg/dl Assessment/Plan Assessment/Plan Assessment Vertigo Liver disease Hyperammonemia Plan [facility] Nephrology consultation MRI of the brain pending Meclizine Resume home medications Continue treatment per orders. Plan discussed with: Patient My Orders Orders - FAN VIERA Procedure Category Date Status Time Brain Head Wo Contrast MRI 02/06/25 Logged 00:15 Rifaximin (Xifaxan) PHA 02/06/25 In Process 10:00 Lactulose Oral PHA 02/06/25 In Process 10:00 Levothyroxine Tablet PHA 02/06/25 In Process (Synthroid Tablet) 06:00 Spironolactone PHA 02/06/25 In Process (Aldactone) 10:00 Furosemide Tablet PHA 02/06/25 In Process (Lasix Tablet) 10:00 Basic Metabolic Panel LAB 02/07/25 Verified 04:00 Admit ADMIT 02/06/25 Transmitted 00:15 Ondansetron Hcl PHA 02/06/25 In Process (Zofran) 00:15 Condition: Stable ERICH 02/06/25 In Process 00:15 Bedrest With Bathroom ERICH 02/06/25 In Process Privileg 00:15 Hepatic Diet DIET 02/06/25 Transmitted (50gmpro,2gmna) Breakfast Meclizine Tablet PHA 02/06/25 In Process (Antivert Tablet) 00:45 Date of Service: Feb 06, 2025 Billing Provider: FAN VIERA Common Visit Codes: 92907-[id number] INP/OBS CARE (HIGH) FAN VIERA Feb 06, 2025 04:35
[2025-02-06 04:54] VITALS: BP 101/49; PULSE 72; RESP 18; TEMP 97.7; O2SAT 95
[2025-02-06] MEDS: LEVOTHYROXINE SODIUM 25 MCG TAB PO SCH (05:43)
[2025-02-06 08:28] LABS: Basophils # (auto) 0 10 ^3/uL (0-0.2); Basophils % (auto) 0.4 % (0.0-2.0); Eosinophils # (auto) 0.1 10 ^3/uL (0-0.8); Eosinophils % (auto) 3.3 % (0.0-7.0); Hematocrit 36.5 % (36.0-46.0); Hemoglobin 12.3 g/dL (12.2-16.2); Lymphocytes # (auto) 1.7 10 ^3/uL (0.4-5.4); Lymphocytes % (auto) 51.9 % (10.0-50.0); Mean Corpuscular Hemoglobin 30.8 pg (28.0-32.0); Mean Corpuscular Hgb Conc. 33.8 g/dL (32.0-36.0); Mean Corpuscular Volume 91.1 fL (80.0-100.0); Monocytes # (auto) 0.4 10 ^3/uL (0-1.3); Monocytes % (auto) 12.9 % (0.0-12.0); Neutrophils # (auto) 1.1 10 ^3/uL (1.6-8.6); Neutrophils % (auto) 31.5 % (37.0-80.0); Nucleated Red Blood Cells % 0.1 %; Platelet Count (auto) 117 10^3/uL (140-450); Red Blood Cells 4.01 10^6/uL (4.0-5.20); White Blood Cell 3.4 10^3/uL (4.4-10.8)
[2025-02-06 08:36] LABS: INR 1.08 (0.9-1.15); Partial Thromboplastin Time 30.7 SEC (24.5-34.5); Prothrombin Time 11.4 sec (9.3-11.8)
[2025-02-06 08:41] LABS: Alanine Aminotransferase 24 U/L (7-40); Albumin 3.7 g/dL (3.2-4.8); Alkaline Phosphatase 81 U/L (46-116); Anion Gap 9 (5-15); Aspartate Aminotransferase 31 U/L (13-40); BUN/Creatinine Ratio 13.3 (10.0-20.0); Calcium 9.2 mg/dL (8.7-10.4); Carbon Dioxide 30 mmol/L (20-31); Total Protein 6.1 g/dL (5.7-8.2)
[2025-02-06 08:42] LABS: Bilirubin, Total 0.8 mg/dL (0.2-1.0); Blood Urea Nitrogen 8 mg/dL (9-23); Chloride 107 mmol/L (98-107); Glucose 108 mg/dL (74-106); Potassium 3.1 mmol/L (3.5-5.1); Sodium 146 mmol/L (136-145)
--- NOTE | 2025-02-06 09:02 | DVHINCON2 ---
Date of service: Feb 06, [address] Ace Reason for Consultation Dizziness History of Present Illness Ms. Lr is a 64 years and right-handed female with a history of hepatitis C, alcoholism, chronic low back pain, chronic hip pain, depression, peptic ulcer, she came to the hospital on 02/05/2025 with a chief complaint of dizziness. At this time, she is alert, fully oriented, she tells me that she has hepatitis-C and liver cirrhosis, she came to the hospital to have her ammonia checked out because she developed dizziness, confusion, shaking in the hands, which was signs of flaring of her liver cirrhosis according to her family doctor, but she was relates having a history of dizziness as described below I saw on 07/21/2022 for altered mental status Dizziness/vertigo Onset: Teenager Possible cause the condition: Unknown Duration: Up to 1 minute Frequency: Many times daily Symptoms: Brief spells of intense dizziness/spinning sensation/roller coaster sensation triggered by lying down, getting up, raising head, bending over, turning head quick, turning over to the left side in bed Previous evaluation: She was seen by her family doctors, but she does not remember seeing ENT specialist or neurologist Current treatment: None Previous treatment: Antivert helped She talked about confusion/additional attention at home before she came to the hospital, which is not convincing enough to be encephalopathy/hepatic encephalopathy She talked about shaking in the hands, per my observation was mild [id number] shaking posturing, not consistent with myoclonus Urinalysis, 02/05/2025: Unremarkable UDS, 02/05/2025: Cannabinoids Hepatitis C antibody, 06/30/2022: Positive WBC/HB/PLT/MCV, 02/06/2025: 3.4/12.3/117/91.1 PT/INR/PTT, 02/06/2025: 11.4/1.28/30.7 CMP, 02/05/2025: Unremarkable TBI/AST/ALT/AP, 07/19/2022: 4.1/59/28/101 Ammonia, 02/06/2020 5:81 TG/CHO L/LDL/HDL, 07/2022: 63/79/47/26, 09/2023: 29/138/67/56 Vitamin B12, 10/2020 4:935 TSH, 02/05/2025: 0.88 CT head, 07/19/2022: No acute intracranial abnormality. Small hypodensity in the left cerebellum, likely representing remote infarct CT head, 02/05/2025: No acute intracranial abnormality identified. Small old left superior cerebellar infarct MRI head, 07/22/2022: There is chronic small left cerebellar infarct. There is no acute infarct. There is no hemorrhage, mass or hydrocephalus MRI head, 02/06/2025: No acute infarct, intracranial hemorrhage, mass effect, or hydrocephalus (Old left cerebellar infarct) Past Medical History Hepatitis C, chronic low back pain, chronic hip pain, depression, peptic ulcer requiring blood transfusion, melanoma Past Surgical History Tonsillectomy, cholecystectomy, Family History: Cardiovascular disease Diabetes mellitus G8 BROTHER, Onset:Unknown G8 SISTER, Onset:Unknown FH: cancer FH: lymphoma, malignant G8 FATHER FH: melanoma G8 MOTHER Malignant melanoma G8 BROTHER Malignant neoplasm of breast G8 MOTHER Prostate carcinoma G8 FATHER, Onset:Unknown Family History Hypertension, diabetes, cancer of different types, depression Social History She was a tobacco smoker, she smokes marijuana, she was a heavy alcohol drinker, no history of drug abuse Allergies: Coded Allergies: NO KNOWN ALLERGIES (Unverified , 09/11/17) Home Meds Active Scripts Rifaximin (Xifaxan) 550 Mg Tab, 550 MG PO BID for 30 Days, #60 TAB Prov:CASSIUS DEAN NP 03/22/24 Ferrous Sulfate (Ferrous Sulfate) 325 Mg Tab, 325 MG PO BIDWM for 30 Days, #60 TAB Prov:KURTIS DALE DO 01/02/23 Ascorbic Acid (VITAMIN C TABLET) 500 Mg Tb, 1 TAB PO BID, #60 TAB Prov:JEFFERY WILSON MD 11/03/22 Furosemide (Lasix) 40 Mg Tab, 40 MG PO DAILY, #90 TAB Prov:JEFFERY WILSON MD 10/15/22 Reported Medications Zinc (Zinc) 100 Mg Tab, 100 MG PO DAILY, TAB 03/21/24 Spironolactone (Spironolactone) 25 Mg Tab, 25 MG PO TID, TAB 03/21/24 Cholecalciferol (VITAMIN D3) 2,000 Unit Tab, 5000 UNIT PO DAILY, TAB 03/21/24 Ondansetron HCl (Ondansetron Hydrochloride) 8 Mg Tab, BID 03/21/24 Escitalopram Oxalate (ESCITALOPRAM OXALATE) 10 Mg Tab, 1 TAB PO DAILY 03/21/24 Cyclobenzaprine HCl (Cyclobenzaprine Hydrochlo) 10 Mg Tab, 1 TAB PO TID 11/26/23 Levothyroxine Sodium (Levothyroxine Sodium) 25 Mcg Tab, 1 TAB PO DAILY 11/26/23 Hydroxyzine Hcl (Hydroxyzine Hcl) 25 Mg Tab, 1 TAB PO DAILYPRN PRN for FOR ITCHING 11/26/23 Potassium Chloride (Potassium Chloride ER) 20 Meq Tab, 1 TAB PO BID 11/26/23 Lactulose (Constulose) 10 Gm/15 Ml Rosalie, PO 11/26/23 Meclizine HCl (Meclizine 25) 25 Mg Tab, 25 MG PO BID, TAB 05/07/23 Pantoprazole Sodium Sesquihydr (Protonix) 40 Mg Tab, 40 MG PO DAILY, #30 TAB 05/07/23 Docusate Sodium (Stool Softener) 100 Mg Tab, 100 MG PO QHSP PRN for FOR CONSTIPATION, TAB 02/16/23 Hydrocodone-Acetaminophen (Hydrocodone Bitartrate/AC 5-325 mg) 1 Tab Tab, 1 TAB PO [id number] PRN for PAIN SCALE 7 THRU 10, TAB 02/16/23 Folic Acid (Folic Acid) 1 Mg Tab, 0.8 MG PO DAILY for 30 Days, MG 02/16/23 Current Medications Current Medications Medications (Trade) Dose Ordered Sig/Yamila Route PRN Reason Start Time Stop Time Status Last Admin Rifaximin (Xifaxan) 550 mg BID PO 02/06/25 10:00 Lactulose 30 ml DAILY PO 02/06/25 10:00 Levothyroxine Sodium (Synthroid Tablet) 25 mcg QAM@0600 PO 02/06/25 06:00 02/06/25 05:43 Spironolactone (Aldactone) 25 mg DAILY PO 02/06/25 10:00 Furosemide (Lasix Tablet) 40 mg DAILY PO 02/06/25 10:00 Ondansetron HCl (Zofran) 4 mg Q4HP PRN IV NAUSEA / VOMITING 02/06/25 00:15 Meclizine HCl (Antivert Tablet) 25 mg Q6HPRN PRN PO DIZZINESS 3/25/25 00:45 Review of Systems As above, the other system negative Vital Signs Vital Signs Date Time Temp Pulse Resp B/P (MAP) Pulse Ox O2 Delivery O2 Flow Rate FiO2 02/06/25 04:54 97.7 72 18 101/49 (66) 95 97.7 02/06/25 01:30 Room Air* 0 21 Physical Exam GENERAL EXAM: General: the patient is well developed and nourished. No acute distress. HEENT: Normocephalic, neck is supple, no carotid bruits. No mass. RESPIRATORY: Normal respiratory effort with symmetrical lung expansion. Lungs clear to auscultation. CARDIOVASCULAR: Regular rate and rhythm with no murmurs. S1, S2. ABDOMEN: Soft, nontender, normal bowel sound NEUROLOGICAL: MENTAL STATUS: Alert and oriented SPEECH, LANGUAGE, HIGHER CORTICAL FUNCTION: no aphasia or dysathria. CRANIAL NERVES: #2: Intact visual cuadra to confrontation. The optic discs were sharp #3,4,6: Pupils are equal, round and reactive. EOMs full and conjugate. No nystagmus. #5: Facial sensation intact in all three divisions bilaterally. Mandibular strength intact. #7: Facial muscles symmetrical and strength intact. #8: Hearing grossly normal to voice. #9,10: Uvula and soft palate rise in the midline. Swallow and voice are normal. #11: Trapezius and sternomastoid strength intact bilaterally. #12: Tongue midline. No fasciculations or atrophy. SENSATION: Sensation to touch and pinprick is unremarkable MOTOR: Normal tone in the upper and lower extremity. Normal muscle bulk. No fasciculations. Mild odvc-gn-kfek shaking in the hands, not consistent with myoclonus or asterixis. Muscle strength of the major groups in the upper extremities is 5/5. Muscle strength of the major groups in the lower extremities is 5/5. REFLEXES: Deep tendon reflexes are symmetrical, including 1/4 in the ankles. No pathological reflexes. CEREBELLAR/COORDINATION: Finger to nose are normal bilaterally. GAIT/STATION: deferred Labs/Diagnostic Data Labs Test 02/06/25 07:55 02/05/25 22:28 02/05/25 20:49 02/05/25 18:57 Range/Units White Blood Count 3.4 #L 4.4-10.8 10^3/uL Red Blood Count 4.01 4.0-5.20 10^6/uL Hemoglobin 12.3 12.2-16.2 g/dL Hematocrit 36.5 36.0-46.0 % Mean Corpuscular Volume 91.1 80.0-100.0 fL Mean Corpuscular Hemoglobin 30.8 28.0-32.0 pg Mean Corpuscular Hemoglobin Concent 33.8 32.0-36.0 g/dL Red Cell Distribution Width 15.0 H 11.8-14.3 % Platelet Count 117 L 140-450 10^3/uL Mean Platelet Volume 9.0 6.9-10.8 fL Neutrophils (%) (Auto) 31.5 L 37.0-80.0 % Lymphocytes (%) (Auto) 51.9 H 10.0-50.0 % Monocytes (%) (Auto) 12.9 H 0.0-12.0 % Eosinophils (%) (Auto) 3.3 0.0-7.0 % Basophils (%) (Auto) 0.4 0.0-2.0 % Neutrophils # (Auto) 1.1 L 1.6-8.6 10 ^3/uL Lymphocytes # (Auto) 1.7 0.4-5.4 10 ^3/uL Monocytes # (Auto) 0.4 0-1.3 10 ^3/uL Eosinophils # (Auto) 0.1 0-0.8 10 ^3/uL Basophils # (Auto) 0 0-0.2 10 ^3/uL Nucleated Red Blood Cells 0.1 % Prothrombin Time 11.4 9.3-11.8 sec Prothrombin Time INR 1.08 0.9-1.15 Activated Partial Thromboplast Time 30.7 24.5-34.5 SEC Sodium Level 146 H 136-145 mmol/L Potassium Level 3.1 L 3.5-5.1 mmol/L Chloride Level 107 98-107 mmol/L Carbon Dioxide Level 30 20-31 mmol/L Anion Gap 9 5-15 Blood Urea Nitrogen 8 L 9-23 mg/dL Creatinine 0.60 0.550-1.02 mg/dL Glomerular Filtration Rate Calc 101 >90 mL/min BUN/Creatinine Ratio 13.3 10.0-20.0 Serum Glucose 108 H 74-106 mg/dL Calcium Level 9.2 8.7-10.4 mg/dL Magnesium Level 2.0 1.6-2.6 mg/dL Total Bilirubin 0.8 0.2-1.0 mg/dL Aspartate Amino Transferase (AST) 31 13-40 U/L Alanine Aminotransferase (ALT) 24 7-40 U/L Alkaline Phosphatase 81 46-116 U/L Total Protein 6.1 5.7-8.2 g/dL Albumin 3.7 3.2-4.8 g/dL Urine Color Light-yellow Yellow Urine Clarity Clear Clear Urine pH 5.5 5.0-9.0 Urine Specific [place] 1.013 1.001-1.035 Urine Protein Negative Negative Urine Ketones Negative Negative Urine Blood Negative Negative /uL Urine Nitrite Negative Negative Urine Bilirubin Negative Negative Urine Urobilinogen Normal Negative mg/dL Urine Leukocyte Esterase Negative Negative /uL Urine RBC <1 0 - 4 /hpf Urine Microscopic WBC 3 0-5 /HPF Urine Squamous Epithelial Cells Few <5 /hpf Urine Bacteria None seen None Seen /hpf Urine Glucose Normal Normal mg/dL Urine Opiates Screen Neg NEGATIVE Urine Fentanyl Screen Neg NEGATIVE Urine Barbiturates Screen Neg NEGATIVE Urine Phencyclidine Screen Neg NEGATIVE Urine Amphetamines Screen Neg NEGATIVE Urine Benzodiazepines Screen Neg NEGATIVE Urine Cocaine Screen Neg NEGATIVE Urine Cannabinoids Screen Pos NEGATIVE Troponin I High Sensitivity < 3 L </=34 ng/L Thyroid Stimulating Hormone (TSH) 0.88 0.55-4.78 uIU/mL POC Glucose 101 70-106 mg/dl Assessment Vertigo, likely benign paroxysmal positional vertigo Reports confusion/disorientation, rule out hepatic encephalopathy though not convincing in the Shaking in the hands Elevated ammonia Cerebellar stroke per MRI/CT Plan/Recommendation Monitoring Supportive treatment Follow-up labs, including ammonia level Lipitor profile EEG Echocardiogram Carotid Doppler ? Aspirin 81 mg daily She may not need statin agent (no LDL, no statin in his external reconciled medication list) Further address benign paroxysmal vertigo as outpatient More recommendation per clinical course This medical document was created using an electronic medical record system with [employer] dictation system. Although this document has been carefully reviewed, there may still be some phonetic and typographical errors. These areas are purely typographical due to imperfections of the software programs, and do not reflect any compromise in the patient's medical care. Plan discussed with: Patient, Other ASAF HEREDIA MD Feb 06, 2025 09:02
--- NOTE | 2025-02-06 09:09 | DVH ---
EXAMINATION: MRI BRAIN HEAD WO CONTRAST INDICATION: dizziness COMPARISON: CT scan of the head performed on 02/05/2025 TECHNIQUE: Multiplanar, multisequence magnetic resonance imaging of the brain was performed without the use of i ntravenous contrast. FINDINGS: No evidence of acute infarct. Old left cerebellar infarct. No intracranial hemorrhage. No mass effect . Generalized volume loss. There is periventricular/deep white matter T2/FLAIR hyperintensity is nonspecific, but most commonly associated with chronic microvascular disease. The ventricles and sulci are normal in size for age. Clear basal cisterns. Flow voids in the major intracranial vessels are maintained. No abnormality of the orbits. Paranasal sinuses and mastoid air cells are clear. No abnormality of the visualized osseous structures and extracranial soft tissues. IMPRESSION: 1. No acute infarct, intracranial hemorrhage, mass effect, or hydrocephalus.
[2025-02-06] MEDS: SPIRONOLACTONE 25 MG TAB PO SCH (09:53)
[2025-02-06] MEDS: MECLIZINE HCL 25 MG TAB PO PRN (09:53)
[2025-02-06] MEDS: FUROSEMIDE 40 MG TAB PO SCH (09:54)
[2025-02-06] MEDS: LACTULOSE 20Gm/30ML SOLN PO SCH (09:55)
[2025-02-06] MEDS: rifAXIMin 550 MG TAB PO SCH (10:00)
[2025-02-06 11:17] LABS: Triglycerides 42 mg/dL (< 150)
[2025-02-06 11:18] LABS: LDL Cholesterol 77 mg/dL (< 100)
[2025-02-06 11:19] LABS: HDL Cholesterol 53 mg/dL (40-59)
[2025-02-06 11:20] LABS: Cholesterol 149 mg/dL (< 200)
[2025-02-06] MEDS: POTASSIUM EFFERVESENT TAB 25 MEQ PO ONE (11:30)
[2025-02-06] MEDS: HYDROcodone-ACET 7.5/325MG TAB PO PRN (12:16)
[2025-02-06 12:46] VITALS: BP 122/59; PULSE 70; RESP 18; TEMP 97.8; O2SAT 99
--- NOTE | 2025-02-06 12:51 | DVHPNRES ---
Progress Note Date Seen: Feb 06, 2025 Resident Creating Document: ANANT MURRAY RESIDENT Medical Necessity Reason Pt with a Central, PICC or Fol: No Subjective Review of Systems Melissa Lr is a 64-year-old female with history of liver cirrhosis, chronic hepatitis-C, hepatic encephalopathy , chronic low back pain, chronic hip pain, depression, peptic ulcer presents to the ED with the chief complaints worsening of dizziness for 3 days. patient reported this is not fasting and she always get flaring above her liver cirrhosis whenever she is having these symptoms, thinks she again having hepatic encephalopathy. Patient reported she has been and brief spells of dizziness, spinning sensation mostly triggered by lying down, getting up and turning head quickly. on my assessment patient denies fever, nausea, vomiting, diarrhea, mechanical fall and other associated symptoms PMH: Liver cirrhosis, chronic hepatitis-C, chronic low back pain, hip pain, depression, peptic ulcer PSH: Tonsillectomy, cholecystectomy, Family history: Noncontributory Allergies: No known allergies Personal history: She was a tobacco smoker, she smokes marijuana, she was a heavy alcohol drinker, no history of drug abuse Patient seen and examined at the bedside. Overnight events reviewed, reported new new complaints. Head CT showed no evidence of acute intracranial abnormalities but small old left superior cerebellar infarct, ordered MRI which showed no acute changes. Neurology remediation consultant evaluated the patient advised supportive management. Patient reports: No new complaints Objective vital signs Vital Sign Date Time Temp Pulse Resp B/P (MAP) Pulse Ox O2 Delivery O2 Flow Rate FiO2 02/06/25 12:10 97.8 70 18 122/59 (80) 97.8 02/06/25 04:54 95 02/06/25 01:30 Room Air* 0 21 Total Intake and Output 02/05/25 02/05/25 02/06/25 15:00 23:00 07:00 Intake Total 1000 ml Balance 1000 ml medications Current Medications Medications Dose Ordered Sig/Yamila Route Start Time Stop Time Status Last Admin Dose Admin Rifaximin 550 mg BID PO 02/06/25 10:00 Lactulose 30 ml DAILY PO 02/06/25 10:00 02/06/25 09:55 30 ML Levothyroxine Sodium 25 mcg QAM@0600 PO 02/06/25 06:00 02/06/25 05:43 25 MCG Spironolactone 25 mg DAILY PO 02/06/25 10:00 02/06/25 09:53 25 MG Furosemide 40 mg DAILY PO 02/06/25 10:00 02/06/25 09:54 40 MG Ondansetron HCl 4 mg Q4HP PRN IV 02/06/25 00:15 Meclizine HCl 25 mg Q6HPRN PRN PO 02/06/25 00:45 02/06/25 09:53 25 MG Acetaminophen/ Hydrocodone Bitart 1 tab Q6HP PRN PO 02/06/25 12:00 02/06/25 12:16 1 TAB Examination Pt is lying on bed General Appearance: Alert, Oriented X3, Cooperative, Not in acute distress HEENT: Atraumatic, Mucous membranes moist/pink Respiratory: Clear to auscultation, Normal air movement, No added sounds Cardiovascular: Regular rate, Normal S1, Normal S2, No murmurs Abdominal: Active bowel sounds, Soft, no distention, no tenderness Extremities: No edema, Normal pulses, No tenderness/swelling Skin: No Significant rash, except past surgical scars Neuro: Normal speech, sensorimotor deficits none. Mild vzll-rn-xlcu shaking in the hands Psych/Mental Status: Mental status NL, Mood NL Nurse was there as sharperone during examination laboratory and microbiology Laboratory Tests 02/06/25 07:55 Test 02/06/25 07:55 Range/Units Serum Glucose 108 H 74-106 mg/dL Labs and/or images reviewed: Labs reviewed by me, Image(s) reviewed by me Problem List/Assessment/Plan Problem List/Assessment/Plan # Rule out acute CVA # H/o cerebellar stroke per CT # Vertigo, likely benign paroxysmal positional vertigo vs CVA # rule out hepatic encephalopathy - Head CT showed no evidence of acute intracranial abnormalities but small old left superior cerebellar infarct - MRI which showed no acute changes. - Neurology remediation consultant evaluated the patient advised supportive management. - carotid Doppler pending # H/o Liver cirrhosis # Hep C # Hyperammonemia - monitor lab for now - lactulose and rifaximin # Hypokalemia - Repleting - Monitor lab # hypothyroidism - resumed home meds Protonix SCDs Hepatic diet Goals of care discussed with the patient for more than 29 minutes: Full code status Case discussed with Dr. Goel, patient and nurse Plan discussed with: Patient My Orders My Orders Orders - ANANT MURRAY Procedure Category Date Status Time Hydrocodone-Acet PHA 02/06/25 In Process 7.5/325mg Tab ([place] 12:00 Orthostatic Vital ORDERS 02/06/25 Transmitted Signs 11:50 Pantoprazole PHA 02/06/25 Verified (Protonix) 13:00 Sequential ERICH 02/06/25 Verified Compression Device 12:48 ANANT MURRAY RESIDENT Feb 06, 2025 12:51
[2025-02-06] MEDS: PANTOPRAZOLE 40 MG/10 ML VIAL INJ IV SCH (13:00)
--- NOTE | 2025-02-06 14:08 | DVH ---
Carotid Duplex Date: 02/06/2025 11:50 AM Clinical History: cva Comparison: None Technique: Duplex Doppler evaluation of the extracranial carotid and vertebral arteries including color Doppler and spectral/pulsed waveform analysis was performed. Findings: Velocities and ratios within normal limits. IMPRESSION: No hemodynamically significant stenosis noted in the right carotid system. No hemodynamically significant stenosis noted in the left carotid system. Reference: Radiology 2003; [id number]
[2025-02-06 16:40] VITALS: BP 105/55; PULSE 72; RESP 17; TEMP 98.2; O2SAT 96
[2025-02-06] MEDS: LACTULOSE 20Gm/30ML SOLN PO ONE (20:17)
[2025-02-06] MEDS: POTASSIUM CHL 20 Meq TABLET PO ONE (20:18)
[2025-02-07 04:27] LABS: Basophils # (auto) 0 10 ^3/uL (0-0.2); Basophils % (auto) 0.5 % (0.0-2.0); Eosinophils # (auto) 0.1 10 ^3/uL (0-0.8); Eosinophils % (auto) 2.5 % (0.0-7.0); Hematocrit 34.1 % (36.0-46.0); Hemoglobin 11.8 g/dL (12.2-16.2); Lymphocytes # (auto) 2.1 10 ^3/uL (0.4-5.4); Lymphocytes % (auto) 54.5 % (10.0-50.0); Mean Corpuscular Hemoglobin 31.8 pg (28.0-32.0); Mean Corpuscular Hgb Conc. 34.8 g/dL (32.0-36.0); Mean Corpuscular Volume 91.3 fL (80.0-100.0); Monocytes # (auto) 0.5 10 ^3/uL (0-1.3); Monocytes % (auto) 11.8 % (0.0-12.0); Neutrophils # (auto) 1.2 10 ^3/uL (1.6-8.6); Neutrophils % (auto) 30.7 % (37.0-80.0); Platelet Count (auto) 122 10^3/uL (140-450); Red Blood Cells 3.73 10^6/uL (4.0-5.20); Red Cell Distribution Width 15.6 % (11.8-14.3); White Blood Cell 3.9 10^3/uL (4.4-10.8)
[2025-02-07 04:53] LABS: Alanine Aminotransferase 24 U/L (7-40); Albumin 3.6 g/dL (3.2-4.8); Alkaline Phosphatase 76 U/L (46-116); Anion Gap 7 (5-15); Aspartate Aminotransferase 29 U/L (13-40); BUN/Creatinine Ratio 15.3 (10.0-20.0); Bilirubin, Total 0.7 mg/dL (0.2-1.0); Blood Urea Nitrogen 9 mg/dL (9-23); Calcium 9.3 mg/dL (8.7-10.4); Carbon Dioxide 29 mmol/L (20-31); Chloride 108 mmol/L (98-107); Glucose 91 mg/dL (74-106); Potassium 3.4 mmol/L (3.5-5.1); Sodium 144 mmol/L (136-145); Total Protein 5.9 g/dL (5.7-8.2)
[2025-02-07] MEDS: ONDANSETRON HCL 4 MG/2 ML VIAL IV PRN (07:08)
[2025-02-07] MEDS ORDERED: POTASSIUM EFFERVESENT TAB 25 MEQ PO ONE (08:15)
[2025-02-07] MEDS: LACTULOSE 20Gm/30ML SOLN PO SCH (08:41)
--- NOTE | 2025-02-07 08:53 | DVHPN2 ---
Progress Note - Dictate Date Seen: Feb 07, 2025 Medical Necessity Reason Pt with a Central, PICC or Fol: No Subjective Ms. Lr is a 64 years and right-handed female with a history of hepatitis C, alcoholism, chronic low back pain, chronic hip pain, depression, peptic ulcer, she came to the hospital on 02/05/2025 with a chief complaint of dizziness. I saw on 07/21/2022 for altered mental status I have seen and examined the patient, I have discussed with her nurse, she still has spells of dizziness/vertigo, otherwise no new complaints She was alert and fully oriented, otherwise no change on physical examination Ammonia level is higher this morning Urinalysis, 02/05/2025: Unremarkable UDS, 02/05/2025: Cannabinoids Hepatitis C Ab, 06/30/2022: Positive WBC/HB/PLT/MCV, 02/06/2025: 3.4/12.3/117/91.1, 02/07/2025: 3.9/11.8/122/91.3 PT/INR/PTT, 02/06/2025: 11.4/1.28/30.7 CMP, 02/05/2025: Unremarkable TBI/AST/ALT/AP, 07/19/2022: 4.1/59/28/101 Ammonia, 02/05/2025: 81, 87, 02/07/2025: 124 TG/CHO L/LDL/HDL, 07/2022: 63/79/47/26, 09/2023: 29/138/67/56, 02/06/2025: 42/149/77/53 Vitamin B12, 10/2020 4:935 TSH, 02/05/2025: 0.88 Carotid Doppler, 02/06/2025: No hemodynamically significant stenosis noted in the right carotid system. No hemodynamically significant stenosis noted in the left carotid system. CT head, 07/19/2022: No acute intracranial abnormality. Small hypodensity in the left cerebellum, likely representing remote infarct CT head, 02/05/2025: No acute intracranial abnormality identified. Small old left superior cerebellar infarct MRI head, 07/22/2022: There is chronic small left cerebellar infarct. There is no acute infarct. There is no hemorrhage, mass or hydrocephalus MRI head, 02/06/2025: No acute infarct, intracranial hemorrhage, mass effect, or hydrocephalus (Old left cerebellar infarct) vital signs Vital Sign Date Time Temp Pulse Resp B/P (MAP) Pulse Ox O2 Delivery O2 Flow Rate FiO2 02/07/25 06:39 98.1 69 18 111/60 (77) 95 98.1 02/06/25 01:30 Room Air* 0 21 medications Current Medications Medications Dose Ordered Sig/Yamila Route Start Time Stop Time Status Last Admin Dose Admin Rifaximin 550 mg BID PO 02/06/25 10:00 Levothyroxine Sodium 25 mcg QAM@0600 PO 02/06/25 06:00 02/07/25 05:03 25 MCG Spironolactone 25 mg DAILY PO 02/06/25 10:00 02/06/25 09:53 25 MG Furosemide 40 mg DAILY PO 02/06/25 10:00 02/06/25 09:54 40 MG Ondansetron HCl 4 mg Q4HP PRN IV 02/06/25 00:15 02/07/25 07:08 4 MG Meclizine HCl 25 mg Q6HPRN PRN PO 02/06/25 00:45 02/06/25 21:35 25 MG Acetaminophen/ Hydrocodone Bitart 1 tab Q6HP PRN PO 02/06/25 12:00 02/07/25 05:04 1 TAB Pantoprazole Sodium 40 mg DAILY IV 02/06/25 13:00 Lactulose 30 ml QID@0200,0800,1400,2000 PO 02/07/25 08:00 02/07/25 08:41 30 ML objective General: the patient is well developed and nourished. No acute distress. MENTAL STATUS: Alert and oriented SPEECH, LANGUAGE, HIGHER CORTICAL FUNCTION: no aphasia or dysathria. CRANIAL NERVES: Pupils are equal, round and reactive. EOMs full and conjugate. No nystagmus. Facial sensation intact in all three divisions bilaterally. Mandibular strength intact. Facial muscles symmetrical and strength intact. SENSATION: Sensation to touch and pinprick is unremarkable MOTOR: Normal tone in the upper and lower extremity. Normal muscle bulk. No fasciculations. Mild [id number]-ay-otss shaking in the hands, not consistent with myoclonus or asterixis. Muscle strength of the major groups in the extremities is 5/5. REFLEXES: Deep tendon reflexes are symmetrical, including 1/4 in the ankles. No pathological reflexes. CEREBELLAR/COORDINATION: Finger to nose are normal bilaterally. GAIT/STATION: deferred laboratory and microbiology Laboratory Tests 02/07/25 04:05 Test 02/07/25 04:05 Range/Units Serum Glucose 91 74-106 mg/dL Problem List Vertigo, likely benign paroxysmal positional vertigo Reports confusion/disorientation, rule out hepatic encephalopathy though not convincing in the Shaking in the hands Elevated ammonia Cerebellar stroke per MRI/CT History of major GI bleeding requiring blood transfusion Assessment/Plan Monitoring Supportive treatment Follow-up labs, including ammonia level EEG Echocardiogram Carotid Doppler ? Aspirin 81 mg daily She may not need statin agent (Low LDL, no statin in his external reconciled medication list) She is to have EGD soon Further address benign paroxysmal vertigo as outpatient This medical document was created using an electronic medical record system with [employer] dictation system. Although this document has been carefully reviewed, there may still be some phonetic and typographical errors. These areas are purely typographical due to imperfections of the software programs, and do not reflect any compromise in the patient's medical care. Prognosis poor Plan discussed with: Patient, Other ASAF HEREDIA MD Feb 07, 2025 08:53
[2025-02-07] MEDS: POTASSIUM CHLORIDE 40 MEQ, LIDOCAINE 1% (LOCAL ANESTH.) 4 ML in SODIUM CHL 0.9% 250 ML IV ONE (09:06)
[2025-02-07 10:30] VITALS: BP 10/72; PULSE 72; RESP 21; TEMP 98.4; O2SAT 97
[2025-02-07 11:00] VITALS: PULSE 72; RESP 16; O2SAT 97
--- NOTE | 2025-02-07 11:35 | DVH ---
CHEST RADIOGRAPH Indication: PREOP/pain Technique: Single frontal view of the chest was obtained Comparison: XY CHEST PORTABLE on DOS: 11/25/23, XY CHEST PORTABLE on DOS: 02/23/23, XY CHEST PORTABLE o n DOS: 02/23/23, XY CHEST PORTABLE on DOS: 02/14/23, XY CHEST PORTABLE on DOS: 02/02/23 FINDINGS: Lines and Tubes: None Lungs: No focal consolidation. Pleura: No effusion. No pneumothorax. Cardiomediastinal contours: Unremarkable Bones: No acute osseous abnormality. IMPRESSION: No acute cardiopulmonary disease.
[2025-02-07 13:30] VITALS: BP 134/74; PULSE 70; RESP 21; TEMP 98.3; O2SAT 98
--- NOTE | 2025-02-07 15:13 | DVHDSRES ---
Discharge Summary Date of Admission Resident Creating Document: ANANT MURRAY RESIDENT Feb 06, 2025 at 00:15 Date of Discharge: Feb 07, 2025 Admitting Diagnosis Dizziness Labs/Diagnostic Data: Laboratory Results Test 02/07/25 14:05 02/07/25 04:05 02/06/25 07:55 02/05/25 22:28 Ammonia 91 umol/L (11-32) White Blood Count 3.9 10^3/uL (4.4-10.8) Red Blood Count 3.73 10^6/uL (4.0-5.20) Hemoglobin 11.8 g/dL (12.2-16.2) Hematocrit 34.1 % (36.0-46.0) Mean Corpuscular Volume 91.3 fL (80.0-100.0) Mean Corpuscular Hemoglobin 31.8 pg (28.0-32.0) Mean Corpuscular Hemoglobin Concent 34.8 g/dL (32.0-36.0) Red Cell Distribution Width 15.6 % (11.8-14.3) Platelet Count 122 10^3/uL (140-450) Mean Platelet Volume 8.8 fL (6.9-10.8) Neutrophils (%) (Auto) 30.7 % (37.0-80.0) Lymphocytes (%) (Auto) 54.5 % (10.0-50.0) Monocytes (%) (Auto) 11.8 % (0.0-12.0) Eosinophils (%) (Auto) 2.5 % (0.0-7.0) Basophils (%) (Auto) 0.5 % (0.0-2.0) Neutrophils # (Auto) 1.2 10 ^3/uL (1.6-8.6) Lymphocytes # (Auto) 2.1 10 ^3/uL (0.4-5.4) Monocytes # (Auto) 0.5 10 ^3/uL (0-1.3) Eosinophils # (Auto) 0.1 10 ^3/uL (0-0.8) Basophils # (Auto) 0 10 ^3/uL (0-0.2) Nucleated Red Blood Cells 0.0 % Sodium Level 144 mmol/L (136-145) Potassium Level 3.4 mmol/L (3.5-5.1) Chloride Level 108 mmol/L (98-107) Carbon Dioxide Level 29 mmol/L (20-31) Anion Gap 7 (5-15) Blood Urea Nitrogen 9 mg/dL (9-23) Creatinine 0.59 mg/dL (0.550-1.02) Glomerular Filtration Rate Calc 102 mL/min (>90) BUN/Creatinine Ratio 15.3 (10.0-20.0) Serum Glucose 91 mg/dL (74-106) Calcium Level 9.3 mg/dL (8.7-10.4) Magnesium Level 2.0 mg/dL (1.6-2.6) Total Bilirubin 0.7 mg/dL (0.2-1.0) Aspartate Amino Transferase (AST) 29 U/L (13-40) Alanine Aminotransferase (ALT) 24 U/L (7-40) Alkaline Phosphatase 76 U/L (46-116) Total Protein 5.9 g/dL (5.7-8.2) Albumin 3.6 g/dL (3.2-4.8) Prothrombin Time 11.4 sec (9.3-11.8) Prothrombin Time INR 1.08 (0.9-1.15) Activated Partial Thromboplast Time 30.7 SEC (24.5-34.5) Hemoglobin A1c 5.4 % A1C (<5.7) Triglycerides Level 42 mg/dL (< 150) Cholesterol Level 149 mg/dL (< 200) LDL Cholesterol 77 mg/dL (< 100) HDL Cholesterol 53 mg/dL (40-59) Urine Color Light-yellow (Yellow) Urine Clarity Clear (Clear) Urine pH 5.5 (5.0-9.0) Urine Specific [place] 1.013 (1.001-1.035) Urine Protein Negative (Negative) Urine Ketones Negative (Negative) Urine Blood Negative /uL (Negative) Urine Nitrite Negative (Negative) Urine Bilirubin Negative (Negative) Urine Urobilinogen Normal mg/dL (Negative) Urine Leukocyte Esterase Negative /uL (Negative) Urine RBC <1 /hpf (0 - 4) Urine Microscopic WBC 3 /HPF (0-5) Urine Squamous Epithelial Cells Few /hpf (<5) Urine Bacteria None seen /hpf (None Seen) Urine Glucose Normal mg/dL (Normal) Urine Opiates Screen Neg (NEGATIVE) Urine Fentanyl Screen Neg (NEGATIVE) Urine Barbiturates Screen Neg (NEGATIVE) Urine Phencyclidine Screen Neg (NEGATIVE) Urine Amphetamines Screen Neg (NEGATIVE) Urine Benzodiazepines Screen Neg (NEGATIVE) Urine Cocaine Screen Neg (NEGATIVE) Urine Cannabinoids Screen Pos (NEGATIVE) Test 02/05/25 20:49 02/05/25 18:57 Troponin I High Sensitivity < 3 ng/L (</=34) Thyroid Stimulating Hormone (TSH) 0.88 uIU/mL (0.55-4.78) POC Glucose 101 mg/dl (70-106) Other Laboratory Tests 02/07/25 04:05 Brief Hx & Hospital Course: Lorri Lr is a 64-year-old female with history of liver cirrhosis, chronic hepatitis-C, hepatic encephalopathy , chronic low back pain, chronic hip pain, depression, peptic ulcer presents yto the ED with the chief complaints worsening of dizziness for 3 days. patient reported this is not first time and she always get flaring above her liver cirrhosis whenever she is having these symptoms, thinks she again having hepatic encephalopathy. Patient reported she has been and brief spells of dizziness, spinning sensation mostly triggered by lying down, getting up and turning head quickly. On my assessment patient denies fever, nausea, vomiting, diarrhea, mechanical fall and other associated symptoms. Head CT showed no evidence of acute intracranial abnormalities but small old left superior cerebellar infarct, ordered MRI which showed no acute changes. Doppler carotid showed no significant stenosis. Neurology marketing operations consultant evaluated the patient advised supportive management. Due to elevated ammonia patient was on lactulose and rifaximin. Carotid electrolyte imbalance anteroseptal home meds. Eventually patient condition was improved, hemodynamically stable and in condition to discharge home with optimal medical treatment and to follow up with PCP. Patient was advised about healthy lifestyle modifications including diet and exercise and to follow up PCP Pt is lying on bed General Appearance: Alert, Oriented X3, Cooperative, Not in acute distress HEENT: Atraumatic, Mucous membranes moist/pink Respiratory: Clear to auscultation, Normal air movement, No added sounds Cardiovascular: Regular rate, Normal S1, Normal S2, No murmurs Abdominal: Active bowel sounds, Soft, no distention, no tenderness Extremities: No edema, Normal pulses, No tenderness/swelling Skin: No Significant rash, except past surgical scars Neuro: Normal speech, sensorimotor deficits none. Mild [id number] shaking in the hands Psych/Mental Status: Mental status NL, Mood NL Nurse was there as sharperone during examination Operations or Procedures Carotid Duplex IMPRESSION: No hemodynamically significant stenosis noted in the right carotid system. No hemodynamically significant stenosis noted in the left carotid system. CT HEAD WITHOUT CONTRAST IMPRESSION: No acute intracranial abnormality identified. 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 EXAMINATION: MRI BRAIN HEAD WO CONTRAST IMPRESSION: 1. No acute infarct, intracranial hemorrhage, mass effect, or hydrocephalus. Condition at Discharge: Stable Final Diagnosis/Problems List # Ruled out acute CVA # H/o cerebellar stroke # Vertigo, likely benign paroxysmal positional vertigo # ruled out hepatic encephalopathy # H/o Liver cirrhosis # Hep C # Hyperammonemia # Hypokalemia # hypothyroidism Discharge Disposition: Home Discharge Instruct/Medications Diet: See Comment Diet comment: Hepatic diet Activity: No Restrictions, As Tolerated Follow Up/Referral: PCP and GI Medications: Lactulose 30 mL 2 times a day Rifaximin 2 times a day Resume home medications Discharge Statement: "Patient was advised to return to the ER or call 911 if any headaches, dizziness, shortness of breath, chest pain, abdominal pain, bleeding, fevers, or worsening of medical condition. Patient was counseled about treatment plan, medications, possible side effects, patientverbalized understanding. All questions were answered to the best of my ability. This discharge took greater then 30 minutes in planning, reviewing documentation, counseling the patient, and discussing with other team members." ASSESSMENT ASSESSMENT Assessment # Ruled out acute CVA # H/o cerebellar stroke # Vertigo, likely benign paroxysmal positional vertigo ANANT MURRAY RESIDENT Feb 07, 2025 15:13
[2025-02-07 16:37] VITALS: BP 127/64; PULSE 70; RESP 18; TEMP 36.8; O2SAT 98
[2025-02-07 17:00] VITALS: BP 101/60; PULSE 82; RESP 18; TEMP 97.8; O2SAT 95
[2025-02-08] MEDS ORDERED: DICY-89 PO (14:54)
[2025-02-08] MEDS ORDERED: CALC0.0013 EX (14:54)
[2025-02-08] MEDS ORDERED: KETO2CRE4 TOP (14:54)
[2025-02-08] MEDS ORDERED: MILK1000 OR (14:54)
[2025-02-08] MEDS ORDERED: METO5TAB67 PO (14:54)
[2025-02-08] MEDS ORDERED: TRIA0.023 EX (14:54)
[2025-02-08] MEDS ORDERED: MULT-1018 PO (14:54)
[2025-02-08] MEDS ORDERED: FEXO-226 PO (14:54)
[2025-02-08] MEDS ORDERED: FLUT1SPR5 (14:54)
[2025-02-08] MEDS ORDERED: BACL10TA PO (14:54)
[2025-02-08] MEDS ORDERED: LYSI500T34 PO (14:54)
[2025-02-08] MEDS ORDERED: CLOB0.05 TOP (14:54)
[2025-02-08] MEDS ORDERED: MAGN100T6 PO (14:54)
== END 2025-02-07 17:30 | disposition home or self-care (01) | DRG 641 ==
LOC: ER 18:48 → OVERFLOW 02-06 00:15 → WEST WING 02-07 10:27
PROVIDERS: ADMIT Student in an Organized Health Care Education/Training Program; ATTEND Student in an Organized Health Care Education/Training Program
DX: E86.0 Dehydration (principal); E72.20 Disorder of urea cycle metabolism, unspecified; B19.20 Unspecified viral hepatitis C without hepatic coma; E03.9 Hypothyroidism, unspecified; K74.60 Unspecified cirrhosis of liver; E87.6 Hypokalemia; G89.29 Other chronic pain; F17.200 Nicotine dependence, unspecified, uncomplicated; F32.A Depression, unspecified; F10.20 Alcohol dependence, uncomplicated; Z79.82 Long term (current) use of aspirin; Z90.49 Acquired absence of other specified parts of digestive tract; Z98.891 History of uterine scar from previous surgery; Z80.3 Family history of malignant neoplasm of breast; Z80.7 Family history of other malignant neoplasms of lymphoid, hematopoietic and related tissues; Z80.8 Family history of malignant neoplasm of other organs or systems; Z81.8 Family history of other mental and behavioral disorders; Z82.49 Family history of ischemic heart disease and other diseases of the circulatory system; Z83.3 Family history of diabetes mellitus; Z85.820 Personal history of malignant melanoma of skin; Z86.73 Personal history of transient ischemic attack (TIA), and cerebral infarction without residual deficits; Z87.11 Personal history of peptic ulcer disease; Z79.2 Long term (current) use of antibiotics; Z79.899 Other long term (current) drug therapy; Y90.9 Presence of alcohol in blood, level not specified
CPT/HCPCS: 36415; 70450; 70551; 71045; 80053; 80061; 80307; 81001; 82140; 82962; 83036; 83735; 84443; 84484; 85025; 85610; 85730; 93005; 93886; 96360; G0378; J2003; J2405; J2470

== ENCOUNTER → 2025-02-09 | Day surgery (SDC) | payer OTHER, MEDICAID ==
[2025-02-08 11:31] LABS: Basophils # (auto) 0 10 ^3/uL (0-0.2); Basophils % (auto) 0.3 % (0.0-2.0); Eosinophils # (auto) 0.1 10 ^3/uL (0-0.8); Eosinophils % (auto) 2.7 % (0.0-7.0); Hemoglobin 13.2 g/dL (12.2-16.2); Lymphocytes # (auto) 1.4 10 ^3/uL (0.4-5.4); Lymphocytes % (auto) 40.4 % (10.0-50.0); Mean Corpuscular Hemoglobin 31.6 pg (28.0-32.0); Mean Corpuscular Hgb Conc. 34.6 g/dL (32.0-36.0); Mean Corpuscular Volume 91.3 fL (80.0-100.0); Monocytes # (auto) 0.4 10 ^3/uL (0-1.3); Monocytes % (auto) 10.1 % (0.0-12.0); Neutrophils # (auto) 1.6 10 ^3/uL (1.6-8.6); Neutrophils % (auto) 46.5 % (37.0-80.0); Platelet Count (auto) 123 10^3/uL (140-450); Red Blood Cells 4.17 10^6/uL (4.0-5.20); Red Cell Distribution Width 15.1 % (11.8-14.3); White Blood Cell 3.5 10^3/uL (4.4-10.8)
[2025-02-08 11:44] LABS: INR 1.06 (0.9-1.15); Partial Thromboplastin Time 28.5 SEC (24.5-34.5); Prothrombin Time 11.2 sec (9.3-11.8)
[2025-02-08 11:45] LABS: Alanine Aminotransferase 29 U/L (7-40); Alkaline Phosphatase 84 U/L (46-116); Anion Gap 5 (5-15); BUN/Creatinine Ratio 17.5 (10.0-20.0); Blood Urea Nitrogen 11 mg/dL (9-23); Calcium 9.7 mg/dL (8.7-10.4); Glucose 104 mg/dL (74-106); Potassium 3.8 mmol/L (3.5-5.1); Sodium 144 mmol/L (136-145); Total Protein 6.8 g/dL (5.7-8.2)
[2025-02-08 11:46] LABS: Albumin 4.2 g/dL (3.2-4.8); Aspartate Aminotransferase 38 U/L (13-40); Bilirubin, Total 0.7 mg/dL (0.2-1.0); Carbon Dioxide 31 mmol/L (20-31); Chloride 108 mmol/L (98-107)
[~2025-02-09] VITALS: Ht 160 cm; Wt 68.0 kg
[~2025-02-09] MED LIST changes: +BACL10TA PO; +CALC0.0013 EX; +CLOB0.05 TOP; +DICY-89 PO; +FEXO-226 PO; +FLUT1SPR5; +KETO2CRE4 TOP; +LYSI500T34 PO; +MAGN100T6 PO; +METO5TAB67 PO; +MILK1000 OR; +MULT-1018 PO; +SODIUM CHLORIDE LOCK 10 ML ONE; +TRIA0.023 EX
[2025-02-09 10:11] VITALS: PULSE 71; RESP 18; O2SAT 99
[2025-02-09] MEDS: LIDOCAINE VISCOUS 2% 15ML UD ONE (10:13)
[2025-02-09] MEDS: fentaNYL CITRATE 100 MCG/2 ML VL ONE (10:15)
[2025-02-09] MEDS: diphenhdrAMINE HCL 50 MG/1 ML VL ONE (10:15)
[2025-02-09] MEDS: MIDAZOLAM HCL 5 MG/ML-1ML VIAL ONE (10:15)
[2025-02-09 10:27] VITALS: O2SAT 97
--- NOTE | 2025-02-09 10:27 | DVHOP2 ---
Operative Report DATE OF OPERATION: 02/09/25 PROCEDURE: Upper Endoscopy with biopsy. PREOPERATIVE INDICATION: The patient is a 64 -year-old female undergoing endoscopy for nausea vomiting and history of cirrhosis rule out varices POSTOPERATIVE DIAGNOSES: 1. 2 cm sliding-type hiatal hernia with no significant esophagitis and no varices 2. Small gastric remnant with minimal gastritis 3. Slight narrowing of the gastrojejunal anastomosis that was auto dilated with the endoscope 4. Otherwise normal examination up to the efferent and afferent loop of the gastrojejunostomy PROCEDURE PERFORMED BY: Regulo Sheets GI NURSE: Karel SCOPE: Olympus videoendoscope. ASA CLASS: 3. PREOPERATIVE MEDICATIONS: Versed 2 mg, Fentanyl 50 mcg, Benadryl 50 mg I administered moderate sedation throughout this _7_ minutes procedure. An independent trained observer pushed medications at my direction, and monitored the patient's level of consciousness and physiological status throughout. PROCEDURE IN DETAIL: After obtaining an informed consent, the patient was placed on left lateral decubitus position. The patient was then sedated with the above medications. A bite block was placed between her teeth. The endoscope was then passed through the oropharynx, into the esophagus, and through the stomach remnant Into the efferent and afferent loop of the gastrojejunostomy. Both the efferent and afferent loops were normal. Small-bowel biopsies were obtained and increase oozing was noted from biopsy sites There was slight narrowing or inflammation at the gastrojejunal anastomosis but this was auto dilated with the endoscope The small gastric remnant showed minimal gastritis and gastric biopsies were obtained. Patient had a 2 cm sliding-type hiatal hernia with irregular squamocolumnar junction but no significant erosive esophagitis The remaining distal and proximal esophagus and oropharynx were unremarkable The patient tolerated the procedure well without difficulty. COMPLICATIONS : None SPECIMENS: Small-bowel biopsies Gastric biopsies DISPOSITION: Stable D/C to home PLAN: 1. Await for biopsy result 2. Will place pt on Protonix 40 mg bid 3. Carafate 1 g p.o. twice a day 4. DC aspirin NSAIDs smoking alcohol 5. Soft mechanical diet advance as tolerated 6. Outpatient follow up with me in 4-6 weeks to review results and discuss further management REGULO SHEETS MD Feb 09, 2025 10:27
[2025-02-09 10:55] VITALS: BP 109/63; PULSE 73; RESP 16; O2SAT 97
== END | disposition home or self-care (01) ==
LOC: GI 09:01
PROVIDERS: ATTEND Internal Medicine Gastroenterology
DX: R11.2 Nausea with vomiting, unspecified (principal); K56.699 Other intestinal obstruction unspecified as to partial versus complete obstruction; K29.50 Unspecified chronic gastritis without bleeding; R14.0 Abdominal distension (gaseous); K74.60 Unspecified cirrhosis of liver; K44.9 Diaphragmatic hernia without obstruction or gangrene; F32.A Depression, unspecified; Z79.899 Other long term (current) drug therapy; Z98.84 Bariatric surgery status; Z85.820 Personal history of malignant melanoma of skin; Z86.19 Personal history of other infectious and parasitic diseases; Z86.2 Personal history of diseases of the blood and blood-forming organs and certain disorders involving the immune mechanism; Z98.890 Other specified postprocedural states
CPT/HCPCS: 36415; 43239; 43245; 80053; 85025; 85610; 85730; 88305; 88312; 88342; J1200; J2250; J3010; J7030

== ENCOUNTER → 2025-02-19 | Outpatient (CLI) | payer OTHER, MEDICAID ==
[~2025-02-19] MED LIST changes: -SODIUM CHLORIDE LOCK 10 ML ONE
[2025-02-19 09:41] LABS: Basophils # (auto) 0 10 ^3/uL (0-0.2); Basophils % (auto) 0.4 % (0.0-2.0); Eosinophils # (auto) 0.1 10 ^3/uL (0-0.8); Eosinophils % (auto) 1.9 % (0.0-7.0); Hematocrit 39.2 % (36.0-46.0); Hemoglobin 13.5 g/dL (12.2-16.2); Lymphocytes # (auto) 1.5 10 ^3/uL (0.4-5.4); Lymphocytes % (auto) 35.6 % (10.0-50.0); Mean Corpuscular Hemoglobin 31.5 pg (28.0-32.0); Mean Corpuscular Hgb Conc. 34.4 g/dL (32.0-36.0); Mean Corpuscular Volume 91.4 fL (80.0-100.0); Monocytes # (auto) 0.4 10 ^3/uL (0-1.3); Monocytes % (auto) 9.1 % (0.0-12.0); Neutrophils # (auto) 2.3 10 ^3/uL (1.6-8.6); Nucleated Red Blood Cells % 0.1 %; Platelet Count (auto) 153 10^3/uL (140-450); Red Blood Cells 4.29 10^6/uL (4.0-5.20); Red Cell Distribution Width 15.5 % (11.8-14.3); White Blood Cell 4.3 10^3/uL (4.4-10.8)
[2025-02-19 09:51] LABS: Alanine Aminotransferase 26 U/L (7-40); Albumin 4.4 g/dL (3.2-4.8); Alkaline Phosphatase 93 U/L (46-116); Anion Gap 8 (5-15); Aspartate Aminotransferase 32 U/L (13-40); BUN/Creatinine Ratio 17.1 (10.0-20.0); Bilirubin, Total 0.8 mg/dL (0.2-1.0); Blood Urea Nitrogen 12 mg/dL (9-23); Calcium 10.3 mg/dL (8.7-10.4); Carbon Dioxide 26 mmol/L (20-31); Chloride 106 mmol/L (98-107); Magnesium 2.3 mg/dL (1.6-2.6); Sodium 140 mmol/L (136-145); Total Protein 7.1 g/dL (5.7-8.2)
[2025-02-19 09:58] LABS: Glucose 126 mg/dL (74-106)
== END | disposition home or self-care (01) ==
LOC: LAB 08:25
PROVIDERS: ATTEND Internal Medicine
DX: K76.82 Hepatic encephalopathy (principal); K76.6 Portal hypertension; D72.819 Decreased white blood cell count, unspecified; R42 Dizziness and giddiness; Z79.899 Other long term (current) drug therapy
CPT/HCPCS: 36415; 80053; 82140; 83036; 83735; 84443; 85025

== ENCOUNTER → 2025-03-06 | Outpatient (CLI) | payer OTHER, MEDICAID | END | disposition home or self-care (01) | LOC: LAB 08:19 | PROVIDERS: ATTEND Internal Medicine | DX: K70.30 Alcoholic cirrhosis of liver without ascites (principal) | CPT/HCPCS: 82140 ==

== ENCOUNTER 2025-05-25 09:10 | Outpatient (CLI) | payer OTHER, MEDICAID | END 2025-05-25 17:00 | disposition home or self-care (01) | LOC: LAB 09:10 | PROVIDERS: ATTEND Internal Medicine | DX: Z12.11 Encounter for screening for malignant neoplasm of colon (principal); K76.0 Fatty (change of) liver, not elsewhere classified; D72.819 Decreased white blood cell count, unspecified; Z79.899 Other long term (current) drug therapy | CPT/HCPCS: 82140; 82306 ==

== ENCOUNTER 2025-06-05 10:42 | Outpatient (CLI) | payer OTHER, MEDICAID | END 2025-06-05 17:00 | disposition home or self-care (01) | LOC: LAB 10:42 | PROVIDERS: ATTEND Internal Medicine | DX: D72.819 Decreased white blood cell count, unspecified (principal); K74.60 Unspecified cirrhosis of liver; Z12.11 Encounter for screening for malignant neoplasm of colon | CPT/HCPCS: 82270 ==

== ENCOUNTER 2025-07-09 09:54 | Outpatient (CLI) | payer OTHER, MEDICAID | END 2025-07-09 17:00 | disposition home or self-care (01) | LOC: LAB 09:54 | PROVIDERS: ATTEND Internal Medicine | DX: D61.818 Other pancytopenia (principal); K76.82 Hepatic encephalopathy; K74.60 Unspecified cirrhosis of liver | CPT/HCPCS: 82140 ==

== ENCOUNTER 2025-07-19 11:04 | Outpatient (CLI) | payer OTHER, MEDICAID | END 2025-07-19 17:00 | disposition home or self-care (01) | LOC: LAB 11:04 | PROVIDERS: ATTEND Internal Medicine | DX: K74.60 Unspecified cirrhosis of liver (principal) | CPT/HCPCS: 82140 ==

== ENCOUNTER 2025-07-23 09:34 | Inpatient (IN) | payer OTHER, MEDICAID ==
[~2025-07-23] VITALS: Ht 160 cm; Wt 71.1 kg
[2025-07-23 11:31] LABS: Hematocrit 41.9 % (36.0-46.0); Hemoglobin 14.4 g/dL (12.2-16.2); Mean Corpuscular Hemoglobin 31.5 pg (28.0-32.0); Mean Corpuscular Volume 91.5 fL (80.0-100.0); Nucleated Red Blood Cells % 0.1 %
[2025-07-23 11:40] LABS: Chloride 107 mmol/L (98-107); Potassium 3.8 mmol/L (3.5-5.1); Sodium 142 mmol/L (136-145)
[2025-07-23 11:41] LABS: Anion Gap 8 (5-15); Calcium 10.3 mg/dL (8.7-10.4); Carbon Dioxide 27 mmol/L (20-31)
[2025-07-23 11:46] LABS: BUN/Creatinine Ratio 11.8 (10.0-20.0); Blood Urea Nitrogen 9 mg/dL (9-23)
[2025-07-23 11:47] LABS: Glucose 108 mg/dL (74-106)
--- NOTE | 2025-07-23 12:21 | ED.PDOC ---
History of Present Illness HPI Comments 64 year old female presents to the ED with a chief complaint of abnormal labs onset today. Patient state she received call from PCP, was told ammonia level was 103, was advised to come to ED. She is currently experiencing dizziness, loss of balance and nausea. PMHx liver cirrhosis. Denies shortness of breath, chest pain, nausea, vomiting, diarrhea, headache, fever, chills. No other symptoms or modifying factors present at this time. Chief Complaint: Abnormal LAB's Time Seen by MD: 12:00 Primary Care Provider: Elizabeth Reviewed Notes: Medications, Allergies Allergies: Coded Allergies: NO KNOWN ALLERGIES (Unverified , 09/11/17) Home Meds Active Scripts Rifaximin (Xifaxan) 550 Mg Tab, 550 MG PO BID for 30 Days, #60 TAB Prov:[facility] 03/22/24 Ferrous Sulfate (Ferrous Sulfate) 325 Mg Tab, 325 MG PO BIDWM for 30 Days, #60 TAB Prov:KURITS DALE DO 01/02/23 Ascorbic Acid (VITAMIN C TABLET) 500 Mg Tb, 1 TAB PO BID, #60 TAB Prov:JEFFERY WILSON MD 11/03/22 Furosemide (Lasix) 40 Mg Tab, 40 MG PO DAILY, #90 TAB Prov:JEFFERY WILSON MD 10/15/22 Reported Medications Clobetasol Propionate (Clobetasol Propionate) 0.05 % Oin, 1 APPLIC TOP BID, #15 GRAMS 02/08/25 Baclofen (Baclofen) Unknown Strength Tab, PO for 30 Days, MG 02/08/25 Ketoconazole (Ketoconazole) 2 % Cre, 1 APPLIC TOP, #60 GRAMS 1 Refill 02/08/25 Calcipotriene (Calcipotriene) 0.005 % Oin, 0.01 % EX, OIN 02/08/25 Triamcinolone Acetonide (Triamcinolone Acetonide) 0.025 % Oin, 0.1 % EX, OIN 02/08/25 Fluticasone Propionate (Nasal) (Flonase Allergy Relief) Unknown Strength Spr, NA, SPRAY 02/08/25 Multiple Vitamin (Multivitamins) Tab, 1 TAB PO DAILY, #90 TAB 3 Refills 02/08/25 Fexofenadine Hcl (Fexofenadine Hcl) Unknown Strength Tab, PO DAILY for 30 Days, MG 02/08/25 Metoclopramide Hcl (Reglan) Unknown Strength Tab, PO, TAB 02/08/25 Dicyclomine Hcl (Dicyclomine Hcl) Unknown Strength Cap, PO for 30 Days, MG 02/08/25 Milk Thistle (Silybum Marianum (MILK THISTLE) Unknown Strength Cap, OR, CAP 02/08/25 Magnesium Citrate (MAGNESIUM CITRATE) Unknown Strength Tab, PO, TAB 02/08/25 Lysine Hcl (L-LYSINE) Unknown Strength Tab, PO, TAB 02/08/25 Zinc (Zinc) 100 Mg Tab, 100 MG PO DAILY, TAB 03/21/24 Spironolactone (Spironolactone) 25 Mg Tab, 25 MG PO TID, TAB 03/21/24 Cholecalciferol (VITAMIN D3) 2,000 Unit Tab, 5000 UNIT PO DAILY, TAB 03/21/24 Ondansetron HCl (Ondansetron Hydrochloride) 8 Mg Tab, BID 03/21/24 Escitalopram Oxalate (ESCITALOPRAM OXALATE) 10 Mg Tab, 1 TAB PO DAILY 03/21/24 Cyclobenzaprine HCl (Cyclobenzaprine Hydrochlo) 10 Mg Tab, 1 TAB PO TID 11/26/23 Levothyroxine Sodium (Levothyroxine Sodium) 25 Mcg Tab, 1 TAB PO DAILY 11/26/23 Hydroxyzine Hcl (Hydroxyzine Hcl) 25 Mg Tab, 1 TAB PO DAILYPRN PRN for FOR ITCHING 11/26/23 Potassium Chloride (Potassium Chloride ER) 20 Meq Tab, 1 TAB PO BID 11/26/23 Lactulose (Constulose) 10 Gm/15 Ml Rosalie, PO 11/26/23 Meclizine HCl (Meclizine 25) 25 Mg Tab, 25 MG PO BID, TAB 05/07/23 Pantoprazole Sodium Sesquihydr (Protonix) 40 Mg Tab, 40 MG PO DAILY, #30 TAB 05/07/23 Docusate Sodium (Stool Softener) 100 Mg Tab, 100 MG PO QHSP PRN for FOR CONSTIPATION, TAB 02/16/23 Hydrocodone-Acetaminophen (Hydrocodone Bitartrate/AC 5-325 mg) 1 Tab Tab, 1 TAB PO [id number] PRN for PAIN SCALE 7 THRU 10, TAB 02/16/23 Folic Acid (Folic Acid) 1 Mg Tab, 0.8 MG PO DAILY for 30 Days, MG 02/16/23 Information Source: Patient Mode of Arrival: Ambulatory Severity: Moderate Timing: Hours Duration: Since onset Prehospital treatment: None Past Medical History PAST MEDICAL HISTORY: Liver Surgical History: Cholecystectomy, [employer] History: No Pertinent [employer] History Family History Family History: Reviewed,noncontributory to illness Social History Smoker: Non-Smoker Alcohol: Denies ETOH Use Drugs: Denies Drug Use Lives In: Home Constitutional: denies: chills, diaphoresis, fatigue, fever, malaise, sweats, weakness, others EENTM: denies: blurred vision, double vision, ear bleeding, ear discharge, ear drainage, ear pain, ear ringing, eye pain, eye redness, hearing loss, mouth pain, mouth swelling, nasal discharge, nose bleeding, nose congestion, nose pain, photophobia, tearing, throat pain, throat swelling, voice changes, others Respiratory: denies: cough, hemoptysis, orthopnea, SOB at rest, shortness of breath, SOB with excertion, stridor, wheezing, others Cardiovascular: denies: chest pain, dizzy spells, diaphoresis, Dyspnea on exertion, edema, irregular heart beat, left arm pain, lightheadedness, palpitations, PND, syncope, others Gastrointestinal: reports: nausea; denies: abdomen distended, abdominal pain, blood streaked bowels, constipated, diarrhea, dysphagia, difficulty swallowing, hematemesis, melena, poor appetite, poor fluid intake, rectal bleeding, rectal pain, vomiting, others Genitourinary: denies: abnormal vagina bleeding, burning, dyspareunia, dysuria, flank pain, frequency, hematuria, incontinence, pain, , vagina discharge, urgency, others Neurological: reports: dizziness; denies: fainting, headache, left sided numbness, left sided weakness, numbness, paresthesia, pre-existing deficit, right sided numbness, right sided weakness, seizure, speech problems, tingling, tremors, weakness, others Musculoskeletal: denies: back pain, gout, joint pain, joint swelling, muscle pain, muscle stiffness, neck pain, others Integumetry: denies: bruises, change in color, change in hair/nails, dryness, laceration, lesions, lumps, rash, wounds, others Allergic/Immunocompromised: denies: Difficulty Healing, Frequent Infections, Hives, Itching, others Hematologic/Lymphatic: denies: anemia, blood clots, easy bleeding, easy bruising, swollen glands, others Endocrine: denies: excessive hunger, excessive sweating, excessive thirst, excessive urination, flushing, intolerance to cold, intolerance to heat, unexplained weight gain, unexplained weight loss, others Psychiatric: denies: anxiety, bipolar disorder, depression, hopeless, panic disorder, schizophrenia, sleepless, suicidal, others All Other Systems: Reviewed and Negative Physical Exam General Appearance: Moderate Distress HEENT: Normal ENT Inspection, Pharynx Normal, TMs Normal Neck: Full Range of Motion, Non-Tender, Normal, Normal Inspection Respiratory: Chest Non-Tender, Lungs Clear, No Accessory Muscle Use, No Respiratory Distress, Normal Breath Sounds Cardiovascular: No Edema, No JVD, No Murmur, No Gallop, Normal Peripheral Pulses, Regular Rate/Rhythm Breast Exam: Deferred Gastrointestinal: No Organomegaly, Non Tender, No Pulsatile Mass, Normal Bowel Sounds, Soft Genitalia: Deferred Pelvic: Deferred Rectal: Deferred Extremities: No calf tenderness, Normal capillary refill, Normal inspection, Normal range of motion, Non-tender, No pedal edema Musculoskeletal : Apperance: Normal Neurologic: Alert, fish protector II-XII nml as Tested, No Motor Deficits, Normal Affect, Normal Mood, No Sensory Deficits Cerebellar Function: NOT DONE Reflexes: NOT DONE Skin: Dry, Normal Color, Warm Peripheral Pulses: 3+ Radial (R), 3+ Radial (L) Lymphatic: No Adenopathy Was a procedure done? Was a procedure done?: No Differential Dx Considerations may include: Liver disease Electrolyte imbalance X-Ray, Labs, Meds, VS Vital Signs Date Time Temp Pulse Resp B/P (MAP) Pulse Ox O2 Delivery O2 Flow Rate FiO2 07/23/25 09:38 98.4 103 18 124/80 94 98.4 Lab Test 07/23/25 12:46 07/23/25 11:14 Range/Units Ammonia Pending White Blood Count 4.9 4.4-10.8 10^3/uL Red Blood Count 4.59 4.0-5.20 10^6/uL Hemoglobin 14.4 12.2-16.2 g/dL Hematocrit 41.9 36.0-46.0 % Mean Corpuscular Volume 91.5 80.0-100.0 fL Mean Corpuscular Hemoglobin 31.5 28.0-32.0 pg Mean Corpuscular Hemoglobin Concent 34.5 32.0-36.0 g/dL Red Cell Distribution Width 14.9 H 11.8-14.3 % Platelet Count 167 140-450 10^3/uL Mean Platelet Volume 8.6 6.9-10.8 fL Neutrophils (%) (Auto) 51.5 37.0-80.0 % Lymphocytes (%) (Auto) 39.7 10.0-50.0 % Monocytes (%) (Auto) 7.1 0.0-12.0 % Eosinophils (%) (Auto) 1.4 0.0-7.0 % Basophils (%) (Auto) 0.3 0.0-2.0 % Neutrophils # (Auto) 2.5 1.6-8.6 10 ^3/uL Lymphocytes # (Auto) 1.9 0.4-5.4 10 ^3/uL Monocytes # (Auto) 0.3 0-1.3 10 ^3/uL Eosinophils # (Auto) 0.1 0-0.8 10 ^3/uL Basophils # (Auto) 0 0-0.2 10 ^3/uL Nucleated Red Blood Cells 0.1 % Sodium Level 142 136-145 mmol/L Potassium Level 3.8 3.5-5.1 mmol/L Chloride Level 107 98-107 mmol/L Carbon Dioxide Level 27 20-31 mmol/L Anion Gap 8 5-15 Blood Urea Nitrogen 9 9-23 mg/dL Creatinine 0.76 0.550-1.02 mg/dL Glomerular Filtration Rate Calc 89 >90 mL/min BUN/Creatinine Ratio 11.8 10.0-20.0 Serum Glucose 108 H 74-106 mg/dL Calcium Level 10.3 8.7-10.4 mg/dL Patient alert. Vitals stable. Has a history of liver disease. Answering questions. WBC within normal limits. Hemoglobin within normal limits. Ammonia level was elevated prior to coming to the ER. She has been mentating well. She is taking her lactulose. Continue to monitor. Time of 1ST Reevaluation: 12:30 Reevaluation 1ST: Unchanged Patient Education/Counseling: Diagnosis, Treatment, Prognosis Family Education/Counseling: No Family Present SEPSIS Sepsis Screen Date sepsis recognized/suspect: Jul 23, 2025 Time Sepsis recognized/suspect: 09 Recent Procedure: No (n) On Antibiotic Therapy: No Respiratory Rate >20: No Heart Rate >90: No Temp<36 C (96.8 F) or >38.3 C: No SBP <90 or MAP <65 mmHG: No New Acute Mental Status Change: No Is the patient on CPAP, BIPAP,: No Physician Orders Urinalysis (07/23/25 10:41) Ammonia (07/23/25 12:29) Vital Signs Date Time Temp Pulse Resp B/P (MAP) Pulse Ox O2 Delivery O2 Flow Rate FiO2 07/23/25 09:38 98.4 103 18 124/80 94 98.4 Laboratory Tests Test 07/23/25 11:14 White Blood Count 4.9 10^3/uL (4.4-10.8) Departure 1 Departure Time of Disposition: 13:10 Impression: Primary Impression: Hyperammonemia Disposition: ADMITTED INPATIENT Admit to: Med Surg Condition: Guarded Critical Care Note Critical Care Time?: No Stability Stability form required: No Heart Score Heart Score: Heart Score Response (Comments) Value History N/A 0 EKG N/A 0 Age N/A 0 Risk Factors N/A 0 Troponin N/A 0 Total 0 I personally scribed for JEFF REVELES MD ([email or web address]) on 07/23/25 at 12:21. Electronically submitted by Bree Wright ([email or web address]). JEFF REVELES MD Jul 23, 2025 12:21
[2025-07-23] MEDS: LACTULOSE 20Gm/30ML SOLN PO ONE (16:06)
[2025-07-23] MEDS ORDERED: ACETAMINOPHEN 325 MG TAB PO PRN (16:45)
--- NOTE | 2025-07-23 17:10 | DVHHP2 ---
History of Present Illness Reason for Visit: Abnormal labs History of Present Illness Melissa Lr is a 64-year-old female with past medical history of liver cirrhosis, skin cancer, and hypothyroidism, who came to the hospital for abnormal labs. Patient had labs drawn on 07/19/2025, and was called from her provider and told to go to the hospital due to her ammonia levels being great than 100. She is experiencing dizziness, loss of balance, and nausea. 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 Dyspnea, Edema, Lt Headedness, Other Gastrointestinal: No: Nausea, Vomiting, Abdominal Pain, Diarrhea, Constipation, Melena, Hematochezia, Other Genitourinary: No Dysuria, No Frequency, No Incontinence, No Hematuria, No Retention, No Other Musculoskeletal: No: other, neck pain, shoulder pain, arm pain, back pain, hand pain, leg pain, foot pain Skin: No: Rash, Lesions, Jaundice, Bruising, Other Neurological: Other (dizziness); No: Weakness, Numbness, Incoordination, Change in speech, Confusion, Seizures Allergies: Coded Allergies: NO KNOWN ALLERGIES (Unverified , 09/11/17) Medications Current Medications Medications Dose Ordered Sig/Yamila Route Start Time Stop Time Status Last Admin Dose Admin Sodium Chloride 10 ml Q8HR IV 07/23/25 22:00 UNV Ondansetron HCl 4 mg Q4HP PRN IV 07/23/25 16:45 UNV Docusate Sodium 100 mg BIDPRN PRN PO 07/23/25 16:45 UNV Exam Vital Signs Vital Signs Date Time Temp Pulse Resp B/P (MAP) Pulse Ox O2 Delivery O2 Flow Rate FiO2 07/23/25 16:04 73 18 142/83 (102) 97 07/23/25 09:38 98.4 98.4 General Appearance: Alert, Oriented X3, Cooperative, mild distress HEENT: Atraumatic, PERRLA, Mucous membr. moist/pink Respiratory: Clear to auscultation, Normal air movement Cardiovascular: Regular rate, Normal S1, Normal S2, No murmurs Abdominal: Normal bowel sounds, Soft, No tenderness, No hepatospenomegaly Extremities: No clubbing, No cyanosis, No edema, Normal pulses Skin: No rashes, No breakdown, No significant lesion Neuro: Normal gait, Normal speech, Strength at 5/5 X4 ext Psych/Mental Status: Mental status NL, Mood NL Labs/Xrays Labs Test 07/23/25 12:46 07/23/25 11:14 Range/Units Ammonia 63 H 11-32 umol/L White Blood Count 4.9 4.4-10.8 10^3/uL Red Blood Count 4.59 4.0-5.20 10^6/uL Hemoglobin 14.4 12.2-16.2 g/dL Hematocrit 41.9 36.0-46.0 % Mean Corpuscular Volume 91.5 80.0-100.0 fL Mean Corpuscular Hemoglobin 31.5 28.0-32.0 pg Mean Corpuscular Hemoglobin Concent 34.5 32.0-36.0 g/dL Red Cell Distribution Width 14.9 H 11.8-14.3 % Platelet Count 167 140-450 10^3/uL Mean Platelet Volume 8.6 6.9-10.8 fL Neutrophils (%) (Auto) 51.5 37.0-80.0 % Lymphocytes (%) (Auto) 39.7 10.0-50.0 % Monocytes (%) (Auto) 7.1 0.0-12.0 % Eosinophils (%) (Auto) 1.4 0.0-7.0 % Basophils (%) (Auto) 0.3 0.0-2.0 % Neutrophils # (Auto) 2.5 1.6-8.6 10 ^3/uL Lymphocytes # (Auto) 1.9 0.4-5.4 10 ^3/uL Monocytes # (Auto) 0.3 0-1.3 10 ^3/uL Eosinophils # (Auto) 0.1 0-0.8 10 ^3/uL Basophils # (Auto) 0 0-0.2 10 ^3/uL Nucleated Red Blood Cells 0.1 % Sodium Level 142 136-145 mmol/L Potassium Level 3.8 3.5-5.1 mmol/L Chloride Level 107 98-107 mmol/L Carbon Dioxide Level 27 20-31 mmol/L Anion Gap 8 5-15 Blood Urea Nitrogen 9 9-23 mg/dL Creatinine 0.76 0.550-1.02 mg/dL Glomerular Filtration Rate Calc 89 >90 mL/min BUN/Creatinine Ratio 11.8 10.0-20.0 Serum Glucose 108 H 74-106 mg/dL Calcium Level 10.3 8.7-10.4 mg/dL SEPSIS Sepsis Screen Date sepsis recognized/suspect: Jul 23, 2025 Time Sepsis recognized/suspect: 945 Recent Procedure: No (n) On Antibiotic Therapy: No Respiratory Rate >20: No Heart Rate >90: No Temp<36 C (96.8 F) or >38.3 C: No SBP <90 or MAP <65 mmHG: No New Acute Mental Status Change: No Is the patient on CPAP, BIPAP,: No Physician Orders Urinalysis (07/23/25 10:41) Admit (07/23/25 16:39) Code Status (07/23/25 16:39) 2 Gm Sodium Diet (07/23/25 Dinner) Sodium Chloride Lock (Saline Lock Ns) (07/23/25 22:00) Ondansetron Hcl (Zofran) (07/23/25 16:45) Docusate Sodium Capsule (Colace Capsule) (07/23/25 16:45) Complete Blood Count (07/24/25 04:00) Comprehensive Metabolic Panel (07/24/25 04:00) Condition: Serious (07/23/25 16:39) Acetaminophen Tablet (Tylenol Tablet) (07/23/25 16:45) Furosemide Tablet (Lasix Tablet) (07/24/25 10:00) Hydrocodone-Acet 5/325mg Tab ([place] 5/32 (07/23/25 16:45) Levothyroxine Tablet (Synthroid Tablet) (07/24/25 10:00) Multiple Vitamin Tablet (Mvi Tab) (07/24/25 10:00) Pantoprazole Tablet (Protonix Tablet) (07/24/25 10:00) Spironolactone (Aldactone) (07/23/25 22:00) (Nf) Escitalopram Oxalate (07/24/25 10:00) (Nf) Folic Acid (07/24/25 10:00) (Nf) Hydroxyzine Hcl (07/23/25 16:45) Lactulose Oral (07/23/25 18:00) Ammonia (07/24/25 04:00) Vital Signs Date Time Temp Pulse Resp B/P (MAP) Pulse Ox O2 Delivery O2 Flow Rate FiO2 07/23/25 16:04 73 18 142/83 (102) 97 07/23/25 09:38 98.4 103 18 124/80 94 98.4 Laboratory Tests Test 07/23/25 11:14 White Blood Count 4.9 10^3/uL (4.4-10.8) Medications Medications Dose Ordered Sig/Yamila Route Start Time Stop Time Status Last Admin Dose Admin Lactulose 30 ml ONCE ONCE PO 07/23/25 14:45 07/23/25 14:46 DC 07/23/25 16:06 30 ML Assessment/Plan Assessment/Plan Assessment: Hyperammonemia, Hypothyroidism, Liver cirrhosis, Skin cancer, Hypothyroidism, Plan: Admit to Med-Surg, PO ammonia QID, Ammonia level in am, Home medications reconciled, Plan discussed with: Patient My Orders Orders - KATHY CASTRO Procedure Category Date Status Time Admit ADMIT 07/23/25 Transmitted 16:39 Code Status CODE 07/23/25 Transmitted 16:39 2 Gm Sodium Diet DIET 07/23/25 Transmitted Dinner Sodium Chloride Lock PHA 07/23/25 Logged (Saline Lock Ns) 22:00 Ondansetron Hcl PHA 07/23/25 Logged (Zofran) 16:45 Docusate Sodium PHA 07/23/25 Logged Capsule (Colace 16:45 Complete Blood Count LAB 07/24/25 Verified 04:00 Comprehensive LAB 07/24/25 Verified Metabolic Panel 04:00 Condition: Serious ERICH 07/23/25 Transmitted 16:39 Acetaminophen Tablet PHA 07/23/25 Logged (Tylenol Tablet) 16:45 Furosemide Tablet PHA 07/24/25 Logged (Lasix Tablet) 10:00 Hydrocodone-Acet PHA 07/23/25 Logged 5/325mg Tab ([place] 16:45 Levothyroxine Tablet PHA 07/24/25 Transmitted (Synthroid Tablet) 10:00 Multiple Vitamin PHA 07/24/25 Transmitted Tablet (Mvi Tab) 10:00 Pantoprazole Tablet PHA 07/24/25 Transmitted (Protonix Tablet) 10:00 Spironolactone PHA 07/23/25 Transmitted (Aldactone) 22:00 (Nf) Escitalopram PHA 07/24/25 Transmitted Oxalate 10:00 (Nf) Folic Acid PHA 07/24/25 Transmitted 10:00 (Nf) Hydroxyzine Hcl PHA 07/23/25 Transmitted 16:45 Lactulose Oral PHA 07/23/25 Verified 18:00 Ammonia LAB 07/24/25 Verified 04:00 Date of Service: Jul 23, 2025 Billing Provider: KATHY CASTRO Common Visit Codes: [id number] INP/OBS CARE (MOD) KATHY CASTRO Jul 23, 2025 17:10
[2025-07-23] MEDS: LACTULOSE 20Gm/30ML SOLN PO SCH (18:02)
[2025-07-23] MEDS ORDERED: hydrOXYzine 25 MG TAB or CAP PO PRN (18:45)
[2025-07-23 20:10] VITALS: PULSE 73; RESP 18; O2SAT 96
[2025-07-23] MEDS: HYDROcodone-ACET 5/325MG TAB PO PRN (20:19)
[2025-07-23] MEDS: SPIRONOLACTONE 25 MG TAB PO SCH (21:21)
[2025-07-23] MEDS: SODIUM CHLOR 0.9% PF (SALINE LOCK) 10ML VIAL/SYR IV SCH (21:22)
[2025-07-23 21:23] VITALS: BP 121/71; PULSE 73; RESP 18; TEMP 97.7; O2SAT 96
[2025-07-24] VITALS (8 sets, daily range): BP systolic 96–113; BP diastolic 53–67; PULSE 60–79; RESP 16–19; TEMP 97.8–98.3; O2SAT 95–99
[2025-07-24 02:40] LABS: Urine Protein, UAD Negative (Negative)
[2025-07-24 07:03] LABS: Hematocrit 35.3 % (36.0-46.0); Hemoglobin 12.5 g/dL (12.2-16.2); Mean Corpuscular Hemoglobin 32.2 pg (28.0-32.0); Mean Corpuscular Volume 91.1 fL (80.0-100.0); Nucleated Red Blood Cells % 0.1 %
[2025-07-24 07:17] LABS: Alanine Aminotransferase 35 U/L (7-40); Albumin 3.7 g/dL (3.2-4.8); Alkaline Phosphatase 71 U/L (46-116); Anion Gap 7 (5-15); BUN/Creatinine Ratio 12.5 (10.0-20.0); Bilirubin, Total 0.5 mg/dL (0.2-1.0); Blood Urea Nitrogen 10 mg/dL (9-23); Calcium 8.8 mg/dL (8.7-10.4); Carbon Dioxide 26 mmol/L (20-31); Potassium 4.1 mmol/L (3.5-5.1); Sodium 144 mmol/L (136-145); Total Protein 6.3 g/dL (5.7-8.2)
[2025-07-24 07:25] LABS: Chloride 111 mmol/L (98-107); Glucose 119 mg/dL (74-106)
[2025-07-24] MEDS: MULTIPLE VITAMIN TAB PO SCH (10:01)
[2025-07-24] MEDS: PANTOPRAZOLE 40 MG TAB PO SCH (10:01)
[2025-07-24] MEDS: FOLIC ACID 1 MG TAB PO SCH (10:01)
[2025-07-24] MEDS: DOCUSATE SOD 100 MG CAP PO PRN (10:02)
[2025-07-24] MEDS: LEVOTHYROXINE SODIUM 25 MCG TAB PO SCH (10:02)
[2025-07-24] MEDS: FUROSEMIDE 40 MG TAB PO SCH (10:02)
--- NOTE | 2025-07-24 11:47 | DVHPN2 ---
Reviewed: Care Plan, H&P, Labs, Medications, Previous Orders, Radiology Changes from previous H/P or p: No Changes Eyes: No Pain, No Vision change, No Conjunctivae inflammation, No Eyelid inflammation, No Other, No Redness ENT: No Ear pain, No Ear discharge, No Nose pain, No Nose discharge, No Nose congestion, No Mouth pain, No Mouth swelling, No Throat pain, No Throat swelling, No Other Cardiovascular: No Chest Pain, No Palpitations, No Orthopnea, No Paroxysmal Noc. Dyspnea, No Edema, No Lt Headedness, No Other Respiratory: No Cough, No Dry, No Shortness of breath, No SOB with excertion, No Wheezing, No Hemoptysis, No Pleuritic Pain, No Sputum, No Other Gastrointestinal: No Nausea, No Vomiting, No Abdominal Pain, No Diarrhea, No Constipation, No Melena, No Hematochezia, No Other Genitourinary: No Dysuria, No Frequency, No Incontinence, No Hematuria, No Retention, No Other Musculoskeletal: No other, No neck pain, No shoulder pain, No arm pain, No back pain, No hand pain, No leg pain, No foot pain Skin: No Rash, No Lesions, No Jaundice, No Bruising, No Other Objective Vitals Vital Signs Date Time Temp Pulse Resp B/P (MAP) Pulse Ox O2 Delivery O2 Flow Rate FiO2 07/24/25 10:02 108/68 07/24/25 08:00 75 18 Room Air* 0 21 07/24/25 04:36 98.1 95 98.1 Intake/Output Intake and Output 07/24/25 07:00 Intake Total 800 ml Balance 800 ml Intake Oral 800 ml # Voids 2 Medications Current Medications Medications Dose Ordered Sig/Yamila Route Start Time Stop Time Status Last Admin Dose Admin Sodium Chloride 10 ml Q8HR IV 07/23/25 22:00 07/24/25 05:24 10 ML Ondansetron HCl 4 mg Q4HP PRN IV 07/23/25 16:45 Docusate Sodium 100 mg BIDPRN PRN PO 07/23/25 16:45 07/24/25 10:02 100 MG Acetaminophen 650 mg Q6HP PRN PO 07/23/25 16:45 Furosemide 40 mg DAILY PO 07/24/25 10:00 07/24/25 10:02 40 MG Acetaminophen/ Hydrocodone Bitart 1 tab [id number] PRN PO 07/23/25 16:45 07/24/25 10:02 1 TAB Levothyroxine Sodium 25 mcg DAILY PO 07/24/25 10:00 07/24/25 10:02 25 MCG Multivitamins 1 tab DAILY PO 07/24/25 10:00 07/24/25 10:01 1 TAB Pantoprazole Sodium 40 mg DAILY PO 07/24/25 10:00 07/24/25 10:01 40 MG Spironolactone 25 mg TID PO 07/23/25 22:00 07/24/25 05:25 25 MG Patient Own Medication 1 tab DAILY PO 07/24/25 10:00 Folic Acid 1 mg DAILY PO 07/24/25 10:00 07/24/25 10:01 1 MG Hydroxyzine Pamoate 25 mg DAILYPRN PRN PO 07/23/25 18:45 Lactulose 30 ml Q6HR PO 07/23/25 18:00 07/24/25 05:24 30 ML Laboratory Results Laboratory Tests 07/24/25 05:11 Chemistry Test 07/24/25 05:11 Albumin 3.7 g/dL (3.2-4.8) Calcium Level 8.8 mg/dL (8.7-10.4) Total Protein 6.3 g/dL (5.7-8.2) LFT Test 07/24/25 05:11 Alanine Aminotransferase (ALT) 35 U/L (7-40) Alkaline Phosphatase 71 U/L (46-116) Aspartate Amino Transferase (AST) 41 U/L (13-40) H Total Bilirubin 0.5 mg/dL (0.2-1.0) Urinalysis Test 07/24/25 01:00 Urine Color Yellow (Yellow) Urine Clarity Turbid (Clear) H Urine pH 5.5 (5.0-9.0) Urine Specific [place] 1.024 (1.001-1.035) Urine Protein Negative (Negative) Urine Ketones Trace (Negative) Urine Blood Negative /uL (Negative) Urine Nitrite Negative (Negative) Urine Bilirubin Negative (Negative) Urine Urobilinogen Normal mg/dL (Negative) Urine Leukocyte Esterase Negative /uL (Negative) Urine RBC None seen /hpf (0 - 4) Urine Microscopic WBC 8 /HPF (0-5) H Urine Squamous Epithelial Cells Few /hpf (<5) Urine Calcium Oxalate Crystals Many (None Seen) Urine Bacteria None seen /hpf (None Seen) Urine Glucose Normal mg/dL (Normal) Labs and/or images reviewed: Labs reviewed by me, Image(s) reviewed by me Assessment/Plan Assessment/Plan Acute hyperammonemia: Lactulose po Acute hepatic encephalopathy Cirrhosis of liver Hypothyroidism History of skin cancer Time Spent 55 minutes Patient is full code Advanced care planning time 25 mts Plan discussed with: Patient Date of Service: Jul 24, 2025 Billing Provider: JEFFERY WILSON MD Common Visit Codes: [id number] INP/OBS CARE(HIGH) JEFFERY WILSON MD Jul 24, 2025 11:46
[2025-07-24] MEDS: ONDANSETRON HCL 4 MG/2 ML VIAL IV PRN (18:48)
[2025-07-25 01:00] VITALS: BP 90/51; PULSE 69; RESP 16; TEMP 97.7; O2SAT 96
[2025-07-25 05:00] VITALS: BP 89/58; PULSE 68; RESP 16; TEMP 98; O2SAT 93
[2025-07-25 08:00] VITALS: PULSE 78; RESP 17; O2SAT 96
--- NOTE | 2025-07-25 08:43 | DVHPN2 ---
Reviewed: Care Plan, H&P, Labs, Medications, Previous Orders, Radiology Changes from previous H/P or p: No Changes Eyes: No Pain, No Vision change, No Conjunctivae inflammation, No Eyelid inflammation, No Other, No Redness ENT: No Ear pain, No Ear discharge, No Nose pain, No Nose discharge, No Nose congestion, No Mouth pain, No Mouth swelling, No Throat pain, No Throat swelling, No Other Cardiovascular: No Chest Pain, No Palpitations, No Orthopnea, No Paroxysmal Noc. Dyspnea, No Edema, No Lt Headedness, No Other Respiratory: No Cough, No Dry, No Shortness of breath, No SOB with excertion, No Wheezing, No Hemoptysis, No Pleuritic Pain, No Sputum, No Other Gastrointestinal: No Nausea, No Vomiting, No Abdominal Pain, No Diarrhea, No Constipation, No Melena, No Hematochezia, No Other Genitourinary: No Dysuria, No Frequency, No Incontinence, No Hematuria, No Retention, No Other Musculoskeletal: No other, No neck pain, No shoulder pain, No arm pain, No back pain, No hand pain, No leg pain, No foot pain Skin: No Rash, No Lesions, No Jaundice, No Bruising, No Other Objective Vitals Vital Signs Date Time Temp Pulse Resp B/P (MAP) Pulse Ox O2 Delivery O2 Flow Rate FiO2 07/25/25 08:00 78 17 96 Room Air* 0 21 07/25/25 05:00 98.0 89/58 (68) 98.0 Intake/Output Intake and Output 07/25/25 07:00 Intake Total 2125 ml Balance 2125 ml Intake Oral 2125 ml # Voids 6 Medications Current Medications Medications Dose Ordered Sig/Yamila Route Start Time Stop Time Status Last Admin Dose Admin Sodium Chloride 10 ml Q8HR IV 07/23/25 22:00 07/25/25 05:33 10 ML Ondansetron HCl 4 mg Q4HP PRN IV 07/23/25 16:45 07/24/25 18:48 4 MG Docusate Sodium 100 mg BIDPRN PRN PO 07/23/25 16:45 07/24/25 10:02 100 MG Acetaminophen 650 mg Q6HP PRN PO 07/23/25 16:45 Furosemide 40 mg DAILY PO 07/24/25 10:00 07/24/25 10:02 40 MG Acetaminophen/ Hydrocodone Bitart 1 tab [id number] PRN PO 07/23/25 16:45 07/24/25 10:02 1 TAB Levothyroxine Sodium 25 mcg DAILY PO 07/24/25 10:00 07/24/25 10:02 25 MCG Multivitamins 1 tab DAILY PO 07/24/25 10:00 07/24/25 10:01 1 TAB Pantoprazole Sodium 40 mg DAILY PO 07/24/25 10:00 07/24/25 10:01 40 MG Spironolactone 25 mg TID PO 07/23/25 22:00 07/25/25 05:32 25 MG Patient Own Medication 1 tab DAILY PO 07/24/25 10:00 Folic Acid 1 mg DAILY PO 07/24/25 10:00 07/24/25 10:01 1 MG Hydroxyzine Pamoate 25 mg DAILYPRN PRN PO 07/23/25 18:45 Lactulose 30 ml Q6HR PO 07/23/25 18:00 07/25/25 05:32 30 ML Laboratory Results Laboratory Tests 07/24/25 05:11 Urinalysis Test 07/24/25 01:00 Urine Color Yellow (Yellow) Urine Clarity Turbid (Clear) H Urine pH 5.5 (5.0-9.0) Urine Specific [place] 1.024 (1.001-1.035) Urine Protein Negative (Negative) Urine Ketones Trace (Negative) Urine Blood Negative /uL (Negative) Urine Nitrite Negative (Negative) Urine Bilirubin Negative (Negative) Urine Urobilinogen Normal mg/dL (Negative) Urine Leukocyte Esterase Negative /uL (Negative) Urine RBC None seen /hpf (0 - 4) Urine Microscopic WBC 8 /HPF (0-5) H Urine Squamous Epithelial Cells Few /hpf (<5) Urine Calcium Oxalate Crystals Many (None Seen) Urine Bacteria None seen /hpf (None Seen) Urine Glucose Normal mg/dL (Normal) Labs and/or images reviewed: Labs reviewed by me, Image(s) reviewed by me Assessment/Plan Assessment/Plan Acute hyperammonemia: Lactulose po, repeat ammonia 89 patient insisting to go home today, she says she has enough lactulose at home Acute hepatic encephalopathy Cirrhosis of liver Hypothyroidism History of skin cancer Time Spent 55 minutes Patient is full code Advanced care planning time 25 mts TATIANA Eden at bedside Plan discussed with: Patient Date of Service: Jul 25, 2025 Billing Provider: JEFFERY WILSON MD Common Visit Codes: [id number] INP/OBS CARE(HIGH) JEFFERY WILSON MD Jul 25, 2025 08:43
--- NOTE | 2025-07-25 08:48 | DVHDS2 ---
Discharge Summary Date of Admission Jul 23, 2025 at 16:39 Date of Discharge: Jul 25, 2025 Admitting Diagnosis Altered mental status Wounds: None Labs/Diagnostic Data: Laboratory Results Test 07/25/25 04:55 07/24/25 05:11 07/24/25 01:00 Ammonia 89 umol/L (11-32) White Blood Count 3.4 10^3/uL (4.4-10.8) Red Blood Count 3.87 10^6/uL (4.0-5.20) Hemoglobin 12.5 g/dL (12.2-16.2) Hematocrit 35.3 % (36.0-46.0) Mean Corpuscular Volume 91.1 fL (80.0-100.0) Mean Corpuscular Hemoglobin 32.2 pg (28.0-32.0) Mean Corpuscular Hemoglobin Concent 35.3 g/dL (32.0-36.0) Red Cell Distribution Width 14.6 % (11.8-14.3) Platelet Count 135 10^3/uL (140-450) Mean Platelet Volume 8.9 fL (6.9-10.8) Neutrophils (%) (Auto) 36.5 % (37.0-80.0) Lymphocytes (%) (Auto) 48.5 % (10.0-50.0) Monocytes (%) (Auto) 12.2 % (0.0-12.0) Eosinophils (%) (Auto) 2.4 % (0.0-7.0) Basophils (%) (Auto) 0.4 % (0.0-2.0) Neutrophils # (Auto) 1.2 10 ^3/uL (1.6-8.6) Lymphocytes # (Auto) 1.6 10 ^3/uL (0.4-5.4) Monocytes # (Auto) 0.4 10 ^3/uL (0-1.3) Eosinophils # (Auto) 0.1 10 ^3/uL (0-0.8) Basophils # (Auto) 0 10 ^3/uL (0-0.2) Nucleated Red Blood Cells 0.1 % Sodium Level 144 mmol/L (136-145) Potassium Level 4.1 mmol/L (3.5-5.1) Chloride Level 111 mmol/L (98-107) Carbon Dioxide Level 26 mmol/L (20-31) Anion Gap 7 (5-15) Blood Urea Nitrogen 10 mg/dL (9-23) Creatinine 0.80 mg/dL (0.550-1.02) Glomerular Filtration Rate Calc 83 mL/min (>90) BUN/Creatinine Ratio 12.5 (10.0-20.0) Serum Glucose 119 mg/dL (74-106) Calcium Level 8.8 mg/dL (8.7-10.4) Total Bilirubin 0.5 mg/dL (0.2-1.0) Aspartate Amino Transferase (AST) 41 U/L (13-40) Alanine Aminotransferase (ALT) 35 U/L (7-40) Alkaline Phosphatase 71 U/L (46-116) Total Protein 6.3 g/dL (5.7-8.2) Albumin 3.7 g/dL (3.2-4.8) Urine Color Yellow (Yellow) Urine Clarity Turbid (Clear) Urine pH 5.5 (5.0-9.0) Urine Specific [place] 1.024 (1.001-1.035) Urine Protein Negative (Negative) Urine Ketones Trace (Negative) Urine Blood Negative /uL (Negative) Urine Nitrite Negative (Negative) Urine Bilirubin Negative (Negative) Urine Urobilinogen Normal mg/dL (Negative) Urine Leukocyte Esterase Negative /uL (Negative) Urine RBC None seen /hpf (0 - 4) Urine Microscopic WBC 8 /HPF (0-5) Urine Squamous Epithelial Cells Few /hpf (<5) Urine Calcium Oxalate Crystals Many (None Seen) Urine Bacteria None seen /hpf (None Seen) Urine Glucose Normal mg/dL (Normal) Other Laboratory Tests 07/24/25 05:11 Brief Hx & Hospital Course: 64-year-old female with a history of cirrhosis of liver hypothyroidism history of skin cancer taking lactulose at home for cirrhosis came in with altered mental status and confusion ammonia level was high 63 and remained high at 89 at the time of discharge. Patient was given lactulose p.o. patient insisting to go home today she says she has plenty of lactulose at home. She is alert awake without any confusion stable vital signs being discharged home. TATIANA Eden at bedside during discussion of discharge plan Consults/Reason for consult None Operations or Procedures CT abdomen pelvis without contrast Condition at Discharge: Fair Final Diagnosis/Problems List Cirrhosis of liver Hyperammonemia Acute hepatic encephalopathy History of skin cancer Discharge Disposition: Home Discharge Instruct/Medications Diet: Regular Activity: Light activity Follow Up/Referral: Continue all your home medications including lactulose Follow up with the primary doctor Scheduled Ascorbic Acid (Vitamin C Tablet), 1 TAB PO BID Cholecalciferol (Vitamin D3), 5,000 UNIT PO DAILY, (Reported) Clobetasol Propionate (Clobetasol Propionate), 1 APPLIC TOP BID, (Reported) Cyclobenzaprine HCl (Cyclobenzaprine Hydrochlo), 1 TAB PO TID, (Reported) Escitalopram Oxalate (Escitalopram Oxalate), 1 TAB PO DAILY, (Reported) Ferrous Sulfate (Ferrous Sulfate), 325 MG PO BIDWM Fexofenadine Hcl (Fexofenadine Hcl), Unknown Dose PO DAILY, (Reported) Folic Acid (Folic Acid), 0.8 MG PO DAILY, (Reported) Furosemide (Lasix), 40 MG PO DAILY Levothyroxine Sodium (Levothyroxine Sodium), 1 TAB PO DAILY, (Reported) Meclizine HCl (Meclizine 25), 25 MG PO BID, (Reported) Multiple Vitamin (Multivitamins), 1 TAB PO DAILY, (Reported) Ondansetron HCl (Ondansetron Hydrochloride), BID, (Reported) Pantoprazole Sodium Sesquihydr (Protonix), 40 MG PO DAILY, (Reported) Potassium Chloride (Potassium Chloride ER), 1 TAB PO BID, (Reported) Rifaximin (Xifaxan), 550 MG PO BID Spironolactone (Spironolactone), 25 MG PO TID, (Reported) Zinc (Zinc), 100 MG PO DAILY, (Reported) Scheduled PRN Docusate Sodium (Stool Softener), 100 MG PO QHSP PRN for FOR CONSTIPATION, (Reported) Hydrocodone-Acetaminophen (Hydrocodone Bitartrate/AC 5-325 mg), 1 TAB PO [id number] PRN for PAIN SCALE 7 THRU 10, (Reported) Hydroxyzine Hcl (Hydroxyzine Hcl), 1 TAB PO DAILYPRN PRN for FOR ITCHING, (Reported) Miscellaneous Medications Baclofen (Baclofen), Unknown Dose PO, (Reported) Calcipotriene (Calcipotriene), 0.01 % EX, (Reported) Dicyclomine Hcl (Dicyclomine Hcl), Unknown Dose PO, (Reported) Fluticasone Propionate (Nasal) (Flonase Allergy Relief), Unknown Dose NA, (Reported) Ketoconazole (Ketoconazole), 1 APPLIC TOP, (Reported) Lactulose (Constulose), PO, (Reported) Lysine Hcl (L-Lysine), Unknown Dose PO, (Reported) Magnesium Citrate (Magnesium Citrate), Unknown Dose PO, (Reported) Metoclopramide Hcl (Reglan), Unknown Dose PO, (Reported) Milk Thistle (Silybum Marianum (Milk Thistle), Unknown Dose OR, (Reported) Triamcinolone Acetonide (Triamcinolone Acetonide), 0.1 % EX, (Reported) 39 (Time taken for discharge summary 39 minutes) Discharge Statement: "Patient was advised to return to the ER or call 911 if any headaches, dizziness, shortness of breath, chest pain, abdominal pain, bleeding, fevers, or worsening of medical condition. Patient was counseled about treatment plan, medications, possible side effects, patientverbalized understanding. All questions were answered to the best of my ability. This discharge took greater then 30 minutes in planning, reviewing documentation, counseling the patient, and discussing with other team members." ASSESSMENT ASSESSMENT Hospital Course Improved Assessment Cirrhosis of liver Hyperammonemia Acute hepatic encephalopathy History of skin cancer Date of Service: Jul 25, 2025 Billing Provider: JEFFERY WILSON MD Common Visit Codes: [id number] DISCH DAY >30min JEFFERY WILSON MD Jul 25, 2025 08:47
[2025-07-25 10:30] VITALS: BP 121/76; PULSE 78; RESP 17; TEMP 97.7; O2SAT 96
== END 2025-07-25 12:44 | disposition home or self-care (01) | DRG 442 ==
LOC: ER 09:34 → OVERFLOW 16:39 → CENTRAL 23:01
PROVIDERS: ADMIT Family Medicine; ATTEND Family Medicine
DX: K76.82 Hepatic encephalopathy (principal); E72.20 Disorder of urea cycle metabolism, unspecified; E03.9 Hypothyroidism, unspecified; K74.60 Unspecified cirrhosis of liver; Z85.828 Personal history of other malignant neoplasm of skin; Z90.49 Acquired absence of other specified parts of digestive tract
CPT/HCPCS: 36415; 80048; 80053; 81001; 82140; 85025; G0378; J2405

== ENCOUNTER → 2025-08-03 | Outpatient (CLI) | payer OTHER, MEDICAID | END | disposition home or self-care (01) | LOC: LAB 11:05 | PROVIDERS: ATTEND Internal Medicine | DX: E72.20 Disorder of urea cycle metabolism, unspecified (principal) | CPT/HCPCS: 82140 ==

== ENCOUNTER 2025-08-20 10:53 | Outpatient (CLI) | payer OTHER, MEDICAID ==
[2025-08-20 11:27] LABS: Hematocrit 37.7 % (36.0-46.0); Hemoglobin 13.3 g/dL (12.2-16.2); Mean Corpuscular Hemoglobin 31.9 pg (28.0-32.0); Mean Corpuscular Volume 90.7 fL (80.0-100.0); Nucleated Red Blood Cells % 0.1 %
== END 2025-08-20 17:00 | disposition home or self-care (01) ==
LOC: LAB 10:53
PROVIDERS: ATTEND Internal Medicine
DX: K74.60 Unspecified cirrhosis of liver (principal)
CPT/HCPCS: 36415; 82140; 85025

== ENCOUNTER 2025-08-20 14:57 | Emergency (ER) | payer OTHER, MEDICAID ==
[~2025-08-20] VITALS: Ht 160 cm; Wt 68.9 kg
--- NOTE | 2025-08-20 15:37 | ED.PDOC ---
History of Present Illness HPI Comments 64 year old female PMHx liver cirrhosis stage 4, hepatitis C, kidney stones present to the ED with a chief complaint of abnormal labs onset today (08/20/25). Patient states she has blood drawn this morning, routine lab work prior to appointment with PCP on 08/22/25. PCP office called, told patient ammonia level was 143, recommended to come to ED. Patient states she currently has no complaints. Denies chest pain, shortness of breath, fever, chills, nausea, vomiting, diarrhea, headache, blurred vision, weakness, numbness/tingling, dysuria, hematuria. No other symptoms or modifying factors present at this time. Chief Complaint: Abnormal LAB's Time Seen by MD: 15:25 Primary Care Provider: Elizabeth Reviewed Notes: Medications, Allergies Allergies: Coded Allergies: NO KNOWN ALLERGIES (Unverified , 09/11/17) Home Meds Active Scripts Rifaximin (Xifaxan) 550 Mg Tab, 550 MG PO BID for 30 Days, #60 TAB Prov:CASSIUS DEAN TUBER HELPER 03/22/24 Ferrous Sulfate (Ferrous Sulfate) 325 Mg Tab, 325 MG PO BIDWM for 30 Days, #60 TAB Prov:KURTIS DALE DO 01/02/23 Ascorbic Acid (VITAMIN C TABLET) 500 Mg Tb, 1 TAB PO BID, #60 TAB Prov:JEFFERY WILSON MD 11/03/22 Furosemide (Lasix) 40 Mg Tab, 40 MG PO DAILY, #90 TAB Prov:JEFFERY WILSON MD 10/15/22 Reported Medications Clobetasol Propionate (Clobetasol Propionate) 0.05 % Oin, 1 APPLIC TOP BID, #15 GRAMS 02/08/25 Baclofen (Baclofen) Unknown Strength Tab, PO for 30 Days, MG 02/08/25 Ketoconazole (Ketoconazole) 2 % Cre, 1 APPLIC TOP, #60 GRAMS 1 Refill 02/08/25 Calcipotriene (Calcipotriene) 0.005 % Oin, 0.01 % EX, OIN 02/08/25 Triamcinolone Acetonide (Triamcinolone Acetonide) 0.025 % Oin, 0.1 % EX, OIN 02/08/25 Fluticasone Propionate (Nasal) (Flonase Allergy Relief) Unknown Strength Spr, NA, SPRAY 02/08/25 Multiple Vitamin (Multivitamins) Tab, 1 TAB PO DAILY, #90 TAB 3 Refills 02/08/25 Fexofenadine Hcl (Fexofenadine Hcl) Unknown Strength Tab, PO DAILY for 30 Days, MG 02/08/25 Metoclopramide Hcl (Reglan) Unknown Strength Tab, PO, TAB 02/08/25 Dicyclomine Hcl (Dicyclomine Hcl) Unknown Strength Cap, PO for 30 Days, MG 02/08/25 Milk Thistle (Silybum Marianum (MILK THISTLE) Unknown Strength Cap, OR, CAP 02/08/25 Magnesium Citrate (MAGNESIUM CITRATE) Unknown Strength Tab, PO, TAB 02/08/25 Lysine Hcl (L-LYSINE) Unknown Strength Tab, PO, TAB 02/08/25 Zinc (Zinc) 100 Mg Tab, 100 MG PO DAILY, TAB 03/21/24 Spironolactone (Spironolactone) 25 Mg Tab, 25 MG PO TID, TAB 03/21/24 Cholecalciferol (VITAMIN D3) 2,000 Unit Tab, 5000 UNIT PO DAILY, TAB 03/21/24 Ondansetron HCl (Ondansetron Hydrochloride) 8 Mg Tab, BID 03/21/24 Escitalopram Oxalate (ESCITALOPRAM OXALATE) 10 Mg Tab, 1 TAB PO DAILY 03/21/24 Cyclobenzaprine HCl (Cyclobenzaprine Hydrochlo) 10 Mg Tab, 1 TAB PO TID 11/26/23 Levothyroxine Sodium (Levothyroxine Sodium) 25 Mcg Tab, 1 TAB PO DAILY 11/26/23 Hydroxyzine Hcl (Hydroxyzine Hcl) 25 Mg Tab, 1 TAB PO DAILYPRN PRN for FOR ITCHING 11/26/23 Potassium Chloride (Potassium Chloride ER) 20 Meq Tab, 1 TAB PO BID 11/26/23 Lactulose (Constulose) 10 Gm/15 Ml Rosalie, PO 11/26/23 Meclizine HCl (Meclizine 25) 25 Mg Tab, 25 MG PO BID, TAB 05/07/23 Pantoprazole Sodium Sesquihydr (Protonix) 40 Mg Tab, 40 MG PO DAILY, #30 TAB 05/07/23 Docusate Sodium (Stool Softener) 100 Mg Tab, 100 MG PO QHSP PRN for FOR CONSTIPATION, TAB 02/16/23 Hydrocodone-Acetaminophen (Hydrocodone Bitartrate/AC 5-325 mg) 1 Tab Tab, 1 TAB PO [id number] PRN for PAIN SCALE 7 THRU 10, TAB 02/16/23 Folic Acid (Folic Acid) 1 Mg Tab, 0.8 MG PO DAILY for 30 Days, MG 02/16/23 Information Source: Patient Mode of Arrival: Ambulatory Severity: Moderate Timing: Hours Duration: Since onset Prehospital treatment: None Past Medical History PAST MEDICAL HISTORY: Kidney Stones, Liver Past Medical History (Other): Hepatits C Surgical History: Cholecystectomy, HELP DESK ASSOCIATE History: No Pertinent HELP DESK ASSOCIATE History Family History Family History: Family hx of DM Social History Smoker: Non-Smoker Alcohol: Sober Drugs: Marijuana Lives In: Home Constitutional: denies: chills, diaphoresis, fatigue, fever, malaise, sweats, weakness, others EENTM: denies: blurred vision, double vision, ear bleeding, ear discharge, ear drainage, ear pain, ear ringing, eye pain, eye redness, hearing loss, mouth pain, mouth swelling, nasal discharge, nose bleeding, nose congestion, nose pain, photophobia, tearing, throat pain, throat swelling, voice changes, others Respiratory: denies: cough, hemoptysis, orthopnea, SOB at rest, shortness of breath, SOB with excertion, stridor, wheezing, others Cardiovascular: denies: chest pain, dizzy spells, diaphoresis, Dyspnea on exertion, edema, irregular heart beat, left arm pain, lightheadedness, palpitations, PND, syncope, others Gastrointestinal: denies: abdomen distended, abdominal pain, blood streaked bowels, constipated, diarrhea, dysphagia, difficulty swallowing, hematemesis, melena, nausea, poor appetite, poor fluid intake, rectal bleeding, rectal pain, vomiting, others Genitourinary: denies: abnormal vagina bleeding, burning, dyspareunia, dysuria, flank pain, frequency, hematuria, incontinence, pain, , vagina discharge, urgency, others Neurological: denies: dizziness, fainting, headache, left sided numbness, left sided weakness, numbness, paresthesia, pre-existing deficit, right sided numbness, right sided weakness, seizure, speech problems, tingling, tremors, weakness, others Musculoskeletal: denies: back pain, gout, joint pain, joint swelling, muscle pain, muscle stiffness, neck pain, others Integumetry: denies: bruises, change in color, change in hair/nails, dryness, laceration, lesions, lumps, rash, wounds, others Allergic/Immunocompromised: denies: Difficulty Healing, Frequent Infections, Hives, Itching, others Hematologic/Lymphatic: denies: anemia, blood clots, easy bleeding, easy bruising, swollen glands, others Endocrine: denies: excessive hunger, excessive sweating, excessive thirst, excessive urination, flushing, intolerance to cold, intolerance to heat, unexplained weight gain, unexplained weight loss, others Psychiatric: denies: anxiety, bipolar disorder, depression, hopeless, panic disorder, schizophrenia, sleepless, suicidal, others All Other Systems: Reviewed and Negative Physical Exam General Appearance: No Apparent Distress HEENT: Normal ENT Inspection, Pharynx Normal, TMs Normal Neck: Full Range of Motion, Non-Tender, Normal, Normal Inspection Respiratory: Chest Non-Tender, Lungs Clear, No Accessory Muscle Use, No Respiratory Distress, Normal Breath Sounds Cardiovascular: No Edema, No JVD, No Murmur, No Gallop, Normal Peripheral Pulses, Regular Rate/Rhythm Breast Exam: Deferred Gastrointestinal: No Organomegaly, Non Tender, No Pulsatile Mass, Normal Bowel Sounds, Soft Genitalia: Deferred Pelvic: Deferred Rectal: Deferred Extremities: No calf tenderness, Normal capillary refill, Normal inspection, Normal range of motion, Non-tender, No pedal edema Musculoskeletal : Apperance: Normal Neurologic: Alert, field service engineer II-XII nml as Tested, No Motor Deficits, Normal Affect, Normal Mood, No Sensory Deficits Cerebellar Function: Normal Reflexes: Normal Skin: Dry, Normal Color, Warm Lymphatic: No Adenopathy Was a procedure done? Was a procedure done?: No Differential Dx Considerations may include: Hepatic encephalopathy, cirrhosis, generalized weakness, elevated liver enzymes X-Ray, Labs, Meds, VS Vital Signs Date Time Temp Pulse Resp B/P (MAP) Pulse Ox O2 Delivery O2 Flow Rate FiO2 08/20/25 14:59 98.6 94 20 133/66 95 98.6 Lab Test 08/20/25 15:48 Range/Units White Blood Count 4.5 4.4-10.8 10^3/uL Red Blood Count 4.23 4.0-5.20 10^6/uL Hemoglobin 13.3 12.2-16.2 g/dL Hematocrit 38.5 36.0-46.0 % Mean Corpuscular Volume 90.8 80.0-100.0 fL Mean Corpuscular Hemoglobin 31.4 28.0-32.0 pg Mean Corpuscular Hemoglobin Concent 34.6 32.0-36.0 g/dL Red Cell Distribution Width 14.3 11.8-14.3 % Platelet Count 148 140-450 10^3/uL Mean Platelet Volume 8.4 6.9-10.8 fL Neutrophils (%) (Auto) 38.3 37.0-80.0 % Lymphocytes (%) (Auto) 51.3 H 10.0-50.0 % Monocytes (%) (Auto) 7.4 0.0-12.0 % Eosinophils (%) (Auto) 2.4 0.0-7.0 % Basophils (%) (Auto) 0.6 0.0-2.0 % Neutrophils # (Auto) 1.7 1.6-8.6 10 ^3/uL Lymphocytes # (Auto) 2.3 0.4-5.4 10 ^3/uL Monocytes # (Auto) 0.3 0-1.3 10 ^3/uL Eosinophils # (Auto) 0.1 0-0.8 10 ^3/uL Basophils # (Auto) 0 0-0.2 10 ^3/uL Nucleated Red Blood Cells 0.1 % Prothrombin Time 10.7 9.3-11.8 sec Prothrombin Time INR 1.01 0.9-1.15 Activated Partial Thromboplast Time 27.4 24.5-34.5 SEC Sodium Level 142 136-145 mmol/L Potassium Level 3.5 3.5-5.1 mmol/L Chloride Level 104 98-107 mmol/L Carbon Dioxide Level 28 20-31 mmol/L Anion Gap 10 5-15 Blood Urea Nitrogen 12 9-23 mg/dL Creatinine 0.70 0.550-1.02 mg/dL Glomerular Filtration Rate Calc 98 >90 mL/min BUN/Creatinine Ratio 17.1 10.0-20.0 Serum Glucose 101 74-106 mg/dL Calcium Level 9.2 8.7-10.4 mg/dL Ammonia 63 H 11-32 umol/L The patient's CBC is within normal limits The chemistry panel is within normal limits We did do an ammonia level on this patient and it is 63 We feel that the patient can be safely discharged at this time The patient is on lactulose and has no change in her mental status The patient states that she does feel fine and we are going to send her home at this time she will continue taking her medications The patient's vital signs have remained stable throughout the emergency department's state. She has no abdominal pain or tenderness Time of 1ST Reevaluation: 15:55 Reevaluation 1ST: Unchanged Patient Education/Counseling: Diagnosis, Treatment, Prognosis, Need For Follow Up Family Education/Counseling: No Family Present SEPSIS Sepsis Screen Date sepsis recognized/suspect: Aug 20, 2025 Time Sepsis recognized/suspect: 8 Recent Procedure: No On Antibiotic Therapy: No Respiratory Rate >20: No Heart Rate >90: No Temp<36 C (96.8 F) or >38.3 C: No SBP <90 or MAP <65 mmHG: No New Acute Mental Status Change: No Is the patient on CPAP, BIPAP,: No Vital Signs Date Time Temp Pulse Resp B/P (MAP) Pulse Ox O2 Delivery O2 Flow Rate FiO2 08/20/25 14:59 98.6 94 20 133/66 95 98.6 Laboratory Tests Test 08/20/25 15:48 White Blood Count 4.5 10^3/uL (4.4-10.8) Departure 1 Departure Time of Disposition: 16:31 Impression: Primary Impression: Cirrhosis Qualified Codes: K70.30 - Alcoholic cirrhosis of liver without ascites Additional Impression: Increased ammonia level Disposition: 01 HOME / SELF CARE / HOMELESS Condition: Fair Discharged With: Self Critical Care Note Critical Care Time?: No Stability Stability form required: No Heart Score Heart Score: Heart Score Response (Comments) Value History N/A 0 EKG N/A 0 Age N/A 0 Risk Factors N/A 0 Troponin N/A 0 Total 0 I personally scribed for ELIDA ZAPIEN MD ([email or web address]) on 08/20/25 at 15:37. Electronically submitted by Bree Wright ([email or web address]). ELIDA ZAPIEN MD Aug 20, 2025 15:37
[2025-08-20 16:10] LABS: Hematocrit 38.5 % (36.0-46.0); Hemoglobin 13.3 g/dL (12.2-16.2); Mean Corpuscular Hemoglobin 31.4 pg (28.0-32.0); Mean Corpuscular Volume 90.8 fL (80.0-100.0); Nucleated Red Blood Cells % 0.1 %
[2025-08-20 16:17] LABS: Chloride 104 mmol/L (98-107); Sodium 142 mmol/L (136-145)
[2025-08-20 16:18] LABS: Anion Gap 10 (5-15); Calcium 9.2 mg/dL (8.7-10.4); Carbon Dioxide 28 mmol/L (20-31)
[2025-08-20 16:23] LABS: BUN/Creatinine Ratio 17.1 (10.0-20.0); Blood Urea Nitrogen 12 mg/dL (9-23); Glucose 101 mg/dL (74-106)
[2025-08-20 16:27] LABS: INR 1.01 (0.9-1.15); Partial Thromboplastin Time 27.4 SEC (24.5-34.5); Prothrombin Time 10.7 sec (9.3-11.8)
[2025-08-20 16:29] LABS: Potassium 3.5 mmol/L (3.5-5.1)
[2025-08-20 16:48] VITALS: BP 125/73; PULSE 104; RESP 17; TEMP 98.7; O2SAT 95
== END 2025-08-20 16:23 | disposition home or self-care (01) ==
LOC: ER 14:59
DX: K70.30 Alcoholic cirrhosis of liver without ascites (principal); E72.20 Disorder of urea cycle metabolism, unspecified; Z90.49 Acquired absence of other specified parts of digestive tract; Z79.899 Other long term (current) drug therapy
CPT/HCPCS: 36415; 80048; 82140; 85025; 85610; 85730

== ENCOUNTER 2025-11-12 09:08 | Outpatient (CLI) | payer OTHER, MEDICAID ==
[2025-11-12 10:09] LABS: Alanine Aminotransferase 33 U/L (7-40); Albumin 4.6 g/dL (3.2-4.8); Alkaline Phosphatase 94 U/L (46-116); Anion Gap 10 (5-15); BUN/Creatinine Ratio 13.3 (10.0-20.0); Blood Urea Nitrogen 10 mg/dL (9-23); Calcium 9.7 mg/dL (8.7-10.4); Carbon Dioxide 26 mmol/L (20-31); Chloride 105 mmol/L (98-107); Potassium 3.5 mmol/L (3.5-5.1); Sodium 141 mmol/L (136-145); Total Protein 7.5 g/dL (5.7-8.2)
[2025-11-12 10:10] LABS: Bilirubin, Total 0.8 mg/dL (0.2-1.0)
[2025-11-12 10:12] LABS: Glucose 139 mg/dL (74-106)
== END 2025-11-12 17:00 | disposition home or self-care (01) ==
LOC: LAB 09:08
PROVIDERS: ATTEND Internal Medicine
DX: E03.9 Hypothyroidism, unspecified (principal); D69.6 Thrombocytopenia, unspecified; D72.819 Decreased white blood cell count, unspecified
CPT/HCPCS: 36415; 80053; 82140; 84443